=== PATIENT | male | born 1950 | race Caucasian/White ===

== ENCOUNTER → 2016-12-15 | Outpatient (CLI) | payer BC ==
[~2016-12-15] MED LIST: IOPAMIDOL (ISOVUE-300) 100 ML BTL ONE
== END ==
LOC: FIMAGING 11:07
PROVIDERS: ATTEND Internal Medicine
DX: E16.9 Disorder of pancreatic internal secretion, unspecified (principal); N20.0 Calculus of kidney; N18.3 Chronic kidney disease, stage 3 (moderate); Q63.1 Lobulated, fused and horseshoe kidney; N21.0 Calculus in bladder
CPT/HCPCS: Q9967

== ENCOUNTER 2016-12-21 11:54 | Day surgery (SDC) | payer BC ==
[2016-12-21] MEDS ORDERED: LR 1,000 ML IV ONE (12:18)
[2016-12-21] MEDS ORDERED: LIDOCAINE 1% 2 ML INJ ID PRN (12:18)
[2016-12-21] MEDS ORDERED: GLUCAGON HCL 1 MG VIAL ONE (13:04)
[2016-12-21] MEDS ORDERED: IOTHALAMATE MEG (CONRAY) 50 ML VIAL IV ONE (13:04)
--- NOTE | 2016-12-21 13:48 | PDANEPAE ---
ANE Past Medical History - Cardiovascular History Hx Hypertension: Yes Hx Arrhythmias: No Hx Chest Pain: No Hx Coronary Artery / Peripheral Vascular Disease: No Hx CHF / Valvular Disease: No Hx Palpitations: No - Pulmonary History Hx COPD: No Hx Asthma/Reactive Airway Disease: No Hx Recent Upper Respiratory Infection: No Hx Oxygen in Use at Home: No Hx Sleep Apnea: No Sleep Apnea Screening Result - Last Documented: Negative - Neurologic History Hx Cerebrovascular Accident: No Hx Seizures: No Hx Dementia: No - Endocrine History Hx Diabetes: Yes Endocrine History Comment: DM II - Renal History Hx Renal Disorders: Yes Renal History Comment: KIDNEY STONE YRS AGO - Liver History Hx Hepatic Disorders: No - Neurological & Psychiatric Hx Hx Neurological and Psychiatric Disorders: No - Cancer History Hx Cancer: Yes Cancer History Comment: SKIN CA - Congenital Disorder History Hx Congenital Disorders: Yes - GI History Hx Gastrointestinal Disorders: Yes Gastrointestinal History Comment: DIARRHEA, LESS APPETITE - Other Health History Other Health History: NEG - Chronic Pain History Chronic Pain: Yes (BACK PAIN) - Surgical History Prior Surgeries: SKIN CA FOREHEAD. COLONOSCOPIES. ORAL SURGERY ANE Review of Systems Review of Systems: - Exercise capacity METS (RN): 4 METS ANE Patient History - Allergies Allergies/Adverse Reactions: niacin [From Niaspan Extended-Release] Allergy (Intermediate, Verified 01/17/11 15:16) Rash coconut Allergy (Verified 12/21/16 13:44) ketoconazole Allergy (Verified 12/21/16 13:44) Rash - Home Medications Home Medications: Acetaminophen [Tylenol 325mg (*)] 325 mg PO DAILY 01/17/11 [Last Taken 12/21/16] Cholecalciferol Vit D3 [Vitamin D3 (*)] 1,000 units PO DAILY 01/17/11 [Last Taken 01/17/11 01:00] Glimepiride [Amaryl 2 MG (*)] 8 mg PO HS 01/17/11 [Last Taken 12/20/16] Insulin Glulisine [Apidra] 8 - 10 unit SQ HS 01/17/11 [Last Taken 12/19/16] Multivitamins [Multivitamin (*)] 1 each PO DAILY 01/17/11 [Last Taken 01/17/11 01:00] Potassium Cl [Klor-Con] 10 meq PO BID 01/17/11 [Last Taken 12/20/16 21:00] Simvastatin [Zocor] 20 mg PO HS 01/17/11 [Last Taken 12/20/16] metFORMIN HCL [Glucophage 500 mg (*)] 500 mg PO BIDMEAL 01/17/11 [Last Taken 1 Week Ago ~12/14/16] Insulin Glargine,Hum.rec.anlog [Basaglar Kwikpen U-100] 75 - 80 unit SQ DAILY [Last Taken 12/21/16 40UNITS] Losartan Potassium [Cozaar 50 mg (*)] 100 mg PO HS 12/17/16 [Last Taken 12/20/16 ] Acetaminophen [Tylenol 325mg (*)] 650 mg PO HS 12/21/16 [Last Taken 12/20/16] Allopurinol [Allopurinol 100 MG (*)] 100 mg PO HS 12/21/16 [Last Taken 12/20/16] Allopurinol [Allopurinol 100 MG (*)] 200 mg PO DAILY 12/21/16 [Last Taken ] Herbals/Supplements -Info Only 1 ea PO DAILY 12/21/16 [Last Taken Unknown] - NPO status NPO Since - Liquids (Date): 12/21/16 NPO Since - Liquids (Time): 08:30 NPO Since - Solids (Date): 12/20/16 NPO Since - Solids (Time): 22:00 - Smoking Hx Smoking Status: Never smoked - Family Anes Hx Family Hx Anesthesia Complications: NEG ANE Labs/Vital Signs - Vital Signs Blood Pressure: 133/86 Heart Rate: 94 Respiratory Rate: 20 O2 Sat (%): 95 Height: 167.64 cm Weight: 95.254 kg ANE Physical Exam - Airway Mallampati Score: Class 2 - ASA Status ASA Status: III ANE Anesthesia Plan Anesthesia Plan: general endotracheal anesthesia
[2016-12-21] MEDS ORDERED: MIDAZOLAM 2 MG/2 ML VIAL ONE (13:49)
[2016-12-21] MEDS ORDERED: fentaNYL 100 MCG/2 ML INJ ONE (13:50)
[2016-12-21] MEDS ORDERED: PROPOFOL 200 MG/20 ML VIAL ONE (13:50)
[2016-12-21] MEDS ORDERED: INDOMETHACIN 50 MG SUPP PR PRN (13:55)
--- NOTE | 2016-12-21 13:55 | PDGENHP ---
History & Physical Chief Complaint: abnl imaging History of Present Illness: 66 year old male presents for evaluation of a abnormal CT. + mass in pancreatic body and head? LFTs elevated. + weight loss Pertinent Past, Social, Family History: PMHx: DM. SoHx: social etoh. FaMHx: mom-cancer Relevant Physical Exam: HEENT: icteric. CV: RRR + s1s2. Lungs: CTAB. Abd: soft, nt, + bs NO guarding or rebound Cardiorespiratory Assessment: ASA 3
[2016-12-21] MEDS ORDERED: NS 500 ML IV SCH (14:00)
[2016-12-21] MEDS ORDERED: METOCLOPRAMIDE 10 MG/2 ML VIAL ONE (14:03)
[2016-12-21] MEDS ORDERED: ONDANSETRON 4 MG/2 ML VIAL ONE (14:03)
[2016-12-21] MEDS ORDERED: levOFLOXACIN 500 MG/DEXTROSE/100 ML BAG IV ONE ×2 (14:29→14:31)
[2016-12-21] MEDS ORDERED: INDOMETHACIN 50 MG SUPP PR ONE (14:32)
--- NOTE | 2016-12-21 15:15 | GPN ---
[f rep st] PROCEDURE NOTE DATE OF PROCEDURE: 12/21/2016 PROCEDURE: Esophagogastroscopy with biopsy, endoscopic ultrasound with fine-needle aspiration. INDICATION: The patient is a 66-year-old male who presents with complaints of diarrhea, weight loss, as well as abdominal discomfort. He had a recent CT scan which showed a possible mass lesion in his pancreas. The patient presents for further evaluation and possible tissue acquisition. CONSENT: Risks, benefits, alternatives of the procedure were discussed in great detail with the nora ent. Risk of infection, bleeding, perforation, sedation, and pancreatitis were discussed. All quest ions answered. Informed consent was obtained. MEDICATIONS: General anesthesia. Please see Anesthesia record for details. ESTIMATED BLOOD LOSS: Insignificant. ESOPHAGOGASTROSCOPY EXAMINATION: The Olympus upper endoscope was inserted in the mouth and advanced to the esophagus. The proximal, mid and distal esophagus were normal in appearance. The stomach was entered and closely examined, including retroflexed views of angularis, cardia and fu ndus. A large hiatal hernia was noted. The mucosa of the whole antrum body was erythematous in a patchy distribution, and biopsies taken. The duodenal bulb and 2nd portion of the duodenum were entered. Multiple superficial ulcers were see n, consistent with biliary stress ulcers. Biopsies were taken to rule out celiac sprue due to his weight loss and diarrhea. ENDOSCOPIC ULTRASOUND EXAMINATION: The Olympus linear echoendoscope was entered in the mouth and adv anced to the 2nd portion of the duodenum. The esophagus, stomach, and duodenum were visualized endos onographically. In the mid body of the pancreas, a 28.5 x 26.4 mm hypoechoic lesion was seen. Ill-defined margins, a nd it did appear to encase the celiac artery. Multiple peripancreatic nodes were appreciated, these measured approximately 4-8 mm. They were hyper echoic with distinct margins. The mass lesion appeared to extend from the body and went to the neck and head of the pancreas. The common bile duct was seen, was dilated to 11 mm. It was followed and the pancreatic duct was see n merging with it. No obvious obstructing lesion was seen. However, due to his significant elevated alkaline phosphatase and bilirubin, it is suspected that he is getting obstruction from the pancreat ic tumor even though this was not visualized on ultrasound. Doppler was used to rule out intervening vessels. One pass was made with a [employer] 25-gaug e needle into the lesion in the pancreatic body. Cytology was present, and preliminary report is pos itive for adenocarcinoma. IMPRESSION: 1. Pancreatic mass in the body with extension to the head, status post fine needle aspiration with p reliminary report positive for carcinoma. 2. Gastritis, as above. 3. Duodenal stress ulcers. 4. Biopsies taken. RECOMMENDATIONS: 1. Follow up on biopsy and FNA results. 2. Proceed with ERCP. /[id number]/MODL
[2016-12-21] MEDS ORDERED: SUGAMMADEX SODIUM 200 MG/2 ML VIAL IVP ONE (15:42)
[2016-12-21] MEDS ORDERED: LR 500 ML IV PRN (15:50)
[2016-12-21] MEDS ORDERED: fentaNYL 100 MCG/2 ML INJ IVP PRN (15:50)
[2016-12-21] MEDS ORDERED: ONDANSETRON 4 MG/2 ML VIAL IVP PRN (15:50)
[2016-12-21] MEDS ORDERED: NALOXONE HCL 0.4 MG/ML INJ IVP PRN (15:50)
--- NOTE | 2016-12-21 15:51 | POSTANESTH ---
Post Anesthetic Evaluation Cardiovascular Status: Normal, Stable Respiratory Status: Normal, Stable Level of Consciousness/Mental Status: Can Participate in Eval Pain Control: Adequate, Prn Tx Ordered Nausea/Vomiting Control: Adequate, Prn Tx Ordered Complications Possibly Related to Anesthesia: None Noted
[2016-12-21 16:00] VITALS: O2SAT 100
[2016-12-21 16:11] VITALS: PULSE 89
[2016-12-21] MEDS ORDERED: traMADol 50 MG TAB PO ONE (17:15)
[2016-12-21] MEDS ORDERED: traMADol 50 MG TAB ONE (17:22)
[2016-12-21 18:17] VITALS: BP 164/77; RESP 14; TEMP 98.1
--- NOTE | 2016-12-21 19:06 | GPN ---
[f rep st] PROCEDURE NOTE DATE OF PROCEDURE: 12/21/2016 NAME OF PROCEDURE: Endoscopic retrograde cholangiopancreatography with placement of stent, biliary s phincterotomy, extraction of debris. INDICATION: The patient is a 66-year-old male who presents with biliary obstruction. The procedure is for further evaluation. CONSENT: Risks, benefits, and alternatives of the procedure were discussed in great detail with the patient. Risk of infection, bleeding, perforation, sedation, and pancreatitis were discussed. All q uestions answered. Informed consent obtained. MEDICATIONS: General anesthesia. Please see Anesthesia report for details. Levaquin 500 mg IV x1. Indomethacin rectal 100 mg x1. ESTIMATED BLOOD LOSS: Insignificant. ENDOSCOPIC RETROGRADE CHOLANGIOPANCREATOGRAPHY EXAM: The Olympus duodenoscope was inserted in the [facility] and advanced to the second portion of the duodenum. The esophagus was normal in appearance. Usi ng a [employer] 0.035 inch wire, the wire was advanced into the common bile duct after going i nto the pancreatic duct at least 4 times. There did appear to be an obstructing mass which made this procedure technically challenging. A limited cholangiogram was done to confirm position, and a 1 cm sphincterotomy was performed. A ___ cholangiography was performed. The flow of contrast was adequate with adequate visualization of the biliary tree. I interpreted the radiographs in real-time. A balloon sweep was made and the balloon could not be extracted beyond the distal hard stricture. Debris was seen within the . A 10 x 60 covered removable metal stent was placed with excellent flow of bile. IMPRESSION: 1. Malignant stricture, status post biliary sphincterotomy and placement of stent. 2. Extraction of debris. RECOMMENDATIONS: 1. Follow up with Oncology. 2. Clear liquid diet. 3. Continue previous medications. /[id number]/MODL
--- NOTE | 2016-12-21 19:06 | GPN ---
[f rep st] PROCEDURE NOTE DATE OF PROCEDURE: 12/21/2016 NAME OF PROCEDURE: Endoscopic retrograde cholangiopancreatography with placement of stent, biliary s phincterotomy, extraction of debris. INDICATION: The patient is a 66-year-old male who presents with biliary obstruction. The procedure is for further evaluation. CONSENT: Risks, benefits, and alternatives of the procedure were discussed in great detail with the patient. Risk of infection, bleeding, perforation, sedation, and pancreatitis were discussed. All q uestions answered. Informed consent obtained. MEDICATIONS: General anesthesia. Please see Anesthesia report for details. Levaquin 500 mg IV x1. Indomethacin rectal 100 mg x1. ESTIMATED BLOOD LOSS: Insignificant. ENDOSCOPIC RETROGRADE CHOLANGIOPANCREATOGRAPHY EXAM: The Olympus duodenoscope was inserted in the [facility] and advanced to the second portion of the duodenum. The esophagus was normal in appearance. Usi ng a [employer] 0.035 inch wire, the wire was advanced into the common bile duct after going i nto the pancreatic duct at least 4 times. There did appear to be an obstructing mass which made this procedure technically challenging. A limited cholangiogram was done to confirm position, and a 1 cm sphincterotomy was performed. A ___ cholangiography was performed. The flow of contrast was adequate with adequate visualization of the biliary tree. I interpreted the radiographs in real-time. A balloon sweep was made and the balloon could not be extracted beyond the distal hard stricture. Debris was seen within the . A 10 x 60 covered removable metal stent was placed with excellent flow of bile. IMPRESSION: 1. Malignant stricture, status post biliary sphincterotomy and placement of stent. 2. Extraction of debris. RECOMMENDATIONS: 1. Follow up with Oncology. 2. Clear liquid diet. 3. Continue previous medications. /[id number]/MODL
--- NOTE | 2016-12-21 19:06 | GPN ---
[f rep st] PROCEDURE NOTE DATE OF PROCEDURE: 12/21/2016 NAME OF PROCEDURE: Endoscopic retrograde cholangiopancreatography with placement of stent, biliary s phincterotomy, extraction of debris. INDICATION: The patient is a 66-year-old male who presents with biliary obstruction. The procedure is for further evaluation. CONSENT: Risks, benefits, and alternatives of the procedure were discussed in great detail with the patient. Risk of infection, bleeding, perforation, sedation, and pancreatitis were discussed. All q uestions answered. Informed consent obtained. MEDICATIONS: General anesthesia. Please see Anesthesia report for details. Levaquin 500 mg IV x1. Indomethacin rectal 100 mg x1. ESTIMATED BLOOD LOSS: Insignificant. ENDOSCOPIC RETROGRADE CHOLANGIOPANCREATOGRAPHY EXAM: The Olympus duodenoscope was inserted in the [facility] and advanced to the second portion of the duodenum. The esophagus was normal in appearance. Usi ng a [employer] 0.035 inch wire, the wire was advanced into the common bile duct after going i nto the pancreatic duct at least 4 times. There did appear to be an obstructing mass which made this procedure technically challenging. A limited cholangiogram was done to confirm position, and a 1 cm sphincterotomy was performed. A ___ cholangiography was performed. The flow of contrast was adequate with adequate visualization of the biliary tree. I interpreted the radiographs in real-time. A balloon sweep was made and the balloon could not be extracted beyond the distal hard stricture. Debris was seen within the . A 10 x 60 covered removable metal stent was placed with excellent flow of bile. IMPRESSION: 1. Malignant stricture, status post biliary sphincterotomy and placement of stent. 2. Extraction of debris. RECOMMENDATIONS: 1. Follow up with Oncology. 2. Clear liquid diet. 3. Continue previous medications. /[id number]/MODL
== END 2016-12-21 18:10 | disposition home or self-care (01) ==
LOC: FSGY 11:54
PROVIDERS: ATTEND Internal Medicine Gastroenterology
PROC: 0DB98ZX Excision of Duodenum, Via Natural or Artificial Opening Endoscopic, Diagnostic (ICD-10-PCS; principal; 2016-12-21 13:45)
PROC: 0FBG8ZX Excision of Pancreas, Via Natural or Artificial Opening Endoscopic, Diagnostic (ICD-10-PCS; principal; 2016-12-21 13:45)
PROC: 0DB67ZX Excision of Stomach, Via Natural or Artificial Opening, Diagnostic (ICD-10-PCS; principal; 2016-12-21 13:45)
PROC: 0F798DZ Dilation of Common Bile Duct with Intraluminal Device, Via Natural or Artificial Opening Endoscopic (ICD-10-PCS; principal; 2016-12-21 13:45)
DX: K83.1 Obstruction of bile duct (principal); C25.9 Malignant neoplasm of pancreas, unspecified; K44.9 Diaphragmatic hernia without obstruction or gangrene; K26.9 Duodenal ulcer, unspecified as acute or chronic, without hemorrhage or perforation; K29.70 Gastritis, unspecified, without bleeding; I10 Essential (primary) hypertension; E11.9 Type 2 diabetes mellitus without complications
CPT/HCPCS: 43235; 43264; 43274; 76001; C1769; C1874; J1610; J1956; J2250; J2405; J2704; J2765; J3010; Q9961

== ENCOUNTER 2017-01-14 21:19 | Emergency (ER) | payer BC ==
--- NOTE | 2017-01-14 22:24 | EDPHY ---
H & P Stated Complaint: recent port placed in L chest for chemo, blood and poss chemo meds leaking Time Seen by Provider: 01/14/17 21:54 HPI/ROS: Chief Complaint: Leaking Port-A-Cath HPI: 66-year-old male with pancreatic cancer had a Port-A-Cath placed 2 days ago. Patient was started on chemotherapy through the port yesterday. Today at about 6:00 p.m. the patient noted some leaking from the site. He called the on- call cancer nurse instructed to come in for further evaluation. Denies any fevers or chills. No chest pain. No pain or irritation around the site. No nausea or vomiting. ROS: 10 point Review of Systems is negative except as noted in the HPI. PMH: Pancreatic cancer Physical Exam: Gen: Awake, Alert, No Distress HEENT: Nose: no rhinorrhea Eyes: PERRLA, EOMI Mouth: Moist mucosa Neck: Supple, no JVD Chest: , there is an accessed Port-A-Cath in his left chest wall. There is no erythema. There is a small trickle of dried blood at the site. There are no crystals or active leaking noted at this time. The Yañez needle is protruding from the skin approximately 1 cm. Back: no CVA tenderness, no midline tenderness Ext: no edema, non-tender Skin: no rash Neuro: CN II-XII intact, Sensation grossly intact, Strength 5/5 in bilateral upper and [lower extremities - Medical/Surgical History Hx Asthma: No Hx Chronic Respiratory Disease: No Hx Diabetes: Yes Hx Cardiac Disease: Yes Hx Renal Disease: No Hx Cirrhosis: No Hx Alcoholism: No Hx HIV/AIDS: No Hx Splenectomy or Spleen Trauma: No Other PMH: pancreatic ca, dm 2, arthritis, gout, hyperlipidemia, hypertension - Social History Smoking Status: Never smoked Constitutional: Initial Vital Signs Heart Rate 81 01/14/17 21:23 Respiratory Rate 18 01/14/17 21:23 Blood Pressure 111/59 L 01/14/17 21:23 O2 Sat (%) 93 01/14/17 21:23 O2 Delivery Mode Room Air Allergies/Adverse Reactions: niacin [From Niaspan Extended-Release] Allergy (Intermediate, Verified 01/14/17 21:28) Rash coconut Allergy (Verified 01/14/17 21:28) ketoconazole Allergy (Verified 01/14/17 21:28) Rash Home Medications: Medication Instructions Recorded Cholecalciferol Vit D3 [Vitamin D3 1,000 units PO DAILY 01/17/11 (*)] Glimepiride [Amaryl 2 MG (*)] 8 mg PO HS 01/17/11 Insulin Glulisine [Apidra] 8 - 10 unit SQ HS 01/17/11 Multivitamins [Multivitamin (*)] 1 each PO DAILY 01/17/11 Potassium Cl [Klor-Con] 10 meq PO BID 01/17/11 Insulin Glargine,Hum.rec.anlog 75 - 80 unit SQ DAILY 12/17/16 [Basaglar Kwikpen U-100] Losartan Potassium [Cozaar 50 mg 100 mg PO HS 12/17/16 (*)] Acetaminophen [Tylenol 325mg (*)] 650 mg PO HS 12/21/16 Allopurinol [Allopurinol 100 MG 200 mg PO DAILY 12/21/16 (*)] Herbals/Supplements -Info Only 1 ea PO DAILY 12/21/16 traMADol 01/14/17 Medical Decision Making ED Course/Re-evaluation: Patient has been seen by the chemotherapy nurse. The she has not noted any crystals or any evidence of a chemotherapeutic agent week. Her plan is to clean the site and Re access the port with a shorter needle. Will re-dress and start back on his previous right via the pump. Patient will follow up with the Cancer Clinic tomorrow for further evaluation. Departure - Departure Disposition: Home, Routine, Self-Care Clinical Impression: Encounter for care related to Port-a-Cath Condition: Good Additional Instructions: Follow up with your oncologist tomorrow. Return to the emergency department for pain or irritation around the catheter site, fevers, chills, redness, discharge, or any other concerns. Referrals: Zafar Kirby MD [Primary Care Provider] - As per Instructions
[2017-01-14 23:13] VITALS: BP 117/56; PULSE 83; RESP 16; O2SAT 94
== END 2017-01-14 23:13 | disposition home or self-care (01) ==
DX: T82.43XA Leakage of vascular dialysis catheter, initial encounter (principal); E11.9 Type 2 diabetes mellitus without complications; I10 Essential (primary) hypertension; Z79.4 Long term (current) use of insulin; Z85.07 Personal history of malignant neoplasm of pancreas; Y82.8 Other medical devices associated with adverse incidents

== ENCOUNTER 2017-01-15 21:17 | Inpatient (IN) | payer OTHER, BC ==
[2017-01-15] MEDS ORDERED: NS 1,000 ML IV ONE ×2 (21:33→23:02)
--- NOTE | 2017-01-15 21:58 | EDPHY ---
H & P Time Seen by Provider: 01/15/17 21:34 HPI/ROS: CHIEF COMPLAINT: High blood sugar HISTORY OF PRESENT ILLNESS: 66-year-old male with a history of type 2 diabetes and recent diagnosis of pancreatic cancer presents with hyperglycemia. He received his 1st chemotherapy on 01/13/2017 and the chemotherapy was just discontinued today. Over the last couple of days he has not been eating much. He has been tolerating a small amount of oral fluids well without vomiting. No fever or recent illness. This morning his blood sugar was off his home monitor scale. He took his usual dose of Basaglar 60 u this morning and then at the advice of his physician, he took extra Basaglar 75 u SQ at 1630 and Apidra 15u SQ at 1630. Blood sugar at 8pm was 523, so he took Apidra 15u SQ. REVIEW OF SYSTEMS: Constitutional: No fever, no chills Eyes: No visual changes ENT: No sore throat Respiratory: No cough, no shortness of breath Cardiac: No chest pain Gastrointestinal: No nausea, no vomiting, no abdominal pain Genitourinary: no dysuria Musculoskeletal: No leg pain or swelling Skin: No rash Neurological: No headache, no weakness Psychiatric: No depression Past Medical/Surgical History: Diabetes type 2 Pancreatic cancer Social History: Smoking Status: Never smoked Physical Exam: General Appearance: Alert, pleasant, does not appear ill Eyes: Pupils equal and round, no conjunctival pallor or injection ENT, Mouth: Mucous membranes moist Neck: Normal inspection Respiratory: Lungs are clear to auscultation Cardiovascular: Regular rate and rhythm Gastrointestinal: Abdomen is soft, left upper quadrant tenderness Neurological: A&O, nonfocal, normal gait Skin: Warm and dry, no rash Extremities: Nontender, no pedal edema Psychiatric: Mood and affect normal Constitutional: Initial Vital Signs Temperature (C) 36.4 C 01/15/17 21:23 Heart Rate 74 01/15/17 21:23 Respiratory Rate 16 01/15/17 21:23 Blood Pressure 116/53 L 01/15/17 21:23 O2 Sat (%) 94 01/15/17 21:23 O2 Delivery Mode Room Air Allergies/Adverse Reactions: niacin [From Niaspan Extended-Release] Allergy (Intermediate, Verified 01/15/17 21:21) Rash coconut Allergy (Verified 01/15/17 21:21) ketoconazole Allergy (Verified 01/15/17 21:21) Rash Home Medications: Medication Instructions Recorded Allopurinol 01/15/17 Amaryl 01/15/17 Apidra 01/15/17 Basaglar Kwikpen U-100 01/15/17 Losartan Potassium 01/15/17 Potassium Chloride 01/15/17 traMADol 01/15/17 Medical Decision Making ED Course/Re-evaluation: IV normal saline 1 L given for a clinical diagnosis of dehydration related to decreased oral intake. Labs ordered. 11:00 p.m.-laboratory results returned and revealed acute renal failure with a BUN 151 and creatinine 4.7. 2 days ago his BUN was 80 and creatinine 4.2. Fortunately his potassium is normal today. The blood sugar is 385; I will not give further insulin at this point given that he just took extra regular insulin 2 hr ago. A 2nd L of IV normal saline given. The patient and his were informed of the diagnosis. The hospitalist service was consulted for admission. Differential Diagnosis: Differential diagnosis includes though is not limited to diabetic ketoacidosis, severe dehydration, hyperkalemia, infectious etiology. - Data Points Laboratory Results: Laboratory Results 01/15/17 22:15 01/15/17 22:15 01/15/17 01/15/17 22:15 22:15 WBC 12.74 10^3/uL H 10^3/uL (3.80-9.50) RBC 3.28 10^6/uL L 10^6/uL (4.40-6.38) Hgb 12.0 g/dL L g/dL (13.7-17.5) Hct 33.1 % L % (40.0-51.0) MCV 100.9 fL H fL (81.5-99.8) MCH 36.6 pg H pg (27.9-34.1) MCHC 36.3 g/dL g/dL (32.4-36.7) RDW 12.6 % % (11.5-15.2) Plt Count 210 10^3/uL 10^3/uL (150-400) MPV 10.1 fL fL (8.7-11.7) Neut % (Auto) 95.8 % H % (39.3-74.2) Lymph % (Auto) 2.7 % L % (15.0-45.0) [place] % (Auto) 1.0 % L % (4.5-13.0) Eos % (Auto) 0.0 % L % (0.6-7.6) Baso % (Auto) 0.1 % L % (0.3-1.7) Nucleat RBC Rel Count 0.0 % % (0.0-0.2) Absolute Neuts (auto) 12.21 10^3/uL H 10^3/uL (1.70-6.50) Absolute Lymphs (auto) 0.34 10^3/uL L 10^3/uL (1.00-3.00) Absolute Monos (auto) 0.13 10^3/uL L 10^3/uL (0.30-0.80) Absolute Eos (auto) 0.00 10^3/uL L 10^3/uL (0.03-0.40) Absolute Basos (auto) 0.01 10^3/uL L 10^3/uL (0.02-0.10) Absolute Nucleated RBC 0.00 10^3/uL 10^3/uL (0-0.01) Immature Gran % 0.4 % % (0.0-1.1) Immature Gran # 0.05 10^3/uL 10^3/uL (0.00-0.10) Sodium 128 mEq/L L mEq/L (134-144) Potassium 4.5 mEq/L mEq/L (3.5-5.2) Chloride 96 mEq/L L mEq/L (97-110) Carbon Dioxide 15 mEq/l L mEq/l (22-31) Anion Gap 17 mEq/L H mEq/L (8-16) BUN 151 mg/dL H* mg/dL (7-23) Creatinine 4.7 mg/dL H mg/dL (0.7-1.3) Estimated GFR 12 Glucose 385 mg/dL H mg/dL (70-100) Calcium 8.1 mg/dL L mg/dL (8.5-10.4) Medications Given: Discontinued Medications Sodium Chloride (Ns) 1,000 mls @ 0 mls/hr IV EDNOW ONE; Wide Open PRN Reason: Protocol Stop: 01/15/17 21:34 Last Admin: 12/01/17 22:15 Dose: 1,000 mls Departure - Departure Disposition: [facility] Inpatient Acute Clinical Impression: Hyperglycemia due to type 2 diabetes mellitus Qualifiers: Diabetes mellitus halfway insulin use: with halfway use Qualified Code(s): E11.65 - Type 2 diabetes mellitus with hyperglycemia; Z79.4 - senior living (current ) use of insulin; Z79.4 - long term care administrator (current) use of insulin; Z79.4 - senior living (current) use of insulin; Z79.4 - long term care administrator (current) use of insulin Acute renal failure Qualifiers: Acute renal failure type: unspecified Qualified Code(s): N17.9 - Acute kidney failure, unspecified Pancreatic cancer Qualifiers: Pancreatic malignancy location: unspecified Qualified Code(s): C25.9 - Malignant neoplasm of pancreas, unspecified Condition: Good Instructions: Diabetic Hyperglycemia (ED) Referrals: Zafar Kirby MD [Primary Care Provider] - As per Instructions
[2017-01-15 22:26] LABS: % IMMATURE GRANULYOCYTES 0.4 % (0.0-1.1); ABSOLUTE IMMATURE GRANULOCYTES 0.05 10^3/uL (0.00-0.10); ADD DIFF? NO; ADD MORPH? NO; ADD SCAN? NO; ATYPICAL LYMPHOCYTE FLAG 0 (0-99); FRAGMENT RBC FLAG 0 (0-99); HEMATOCRIT 33.1 % (40.0-51.0); LEFT SHIFT FLG 0 (0-99); LIPEMIA HEMOLYSIS FLAG 90 (0-99); MEAN CELL HEMOGLOBIN 36.6 pg (27.9-34.1); MEAN CELL HEMOGLOBIN CONCENTR. 36.3 g/dL (32.4-36.7); MEAN CELL VOLUME 100.9 fL (81.5-99.8); MEAN PLATELET VOLUME 10.1 fL (8.7-11.7); PLATELET CLUMPS FLAG 0 (0-99); PLATELET COUNT 210 10^3/uL (150-400); RED BLOOD CELL COUNT 3.28 10^6/uL (4.40-6.38); RED CELL DISTRIBUTION WIDTH 12.6 % (11.5-15.2)
[2017-01-15 22:49] LABS: ANION GAP 17 mEq/L (8-16); CALCIUM 8.1 mg/dL (8.5-10.4); CARBON DIOXIDE 15 mEq/l (22-31); CHLORIDE 96 mEq/L (97-110); CREATININE 4.7 mg/dL (0.7-1.3); GLOMERULAR FILTRATION RATE 12; GLUCOSE 385 mg/dL (70-100); POTASSIUM 4.5 mEq/L (3.5-5.2); SODIUM 128 mEq/L (134-144)
[2017-01-16] MEDS ORDERED: diphenhydrAMINE 25 MG CAP PO PRN (01:09)
[2017-01-16] MEDS ORDERED: ACETAMINOPHEN 325 MG TAB PO PRN (01:09)
[2017-01-16] MEDS ORDERED: LORazepam 0.5 MG TAB PO PRN ×2 (01:09→11:06)
[2017-01-16] MEDS ORDERED: D50W 25 GM/50 ML SYR IVP PRN (01:15)
[2017-01-16] MEDS ORDERED: LR 1,000 ML IV SCH (01:30)
[2017-01-16] MEDS: ONDANSETRON 4 MG/2 ML VIAL IVP PRN (01:32)
[2017-01-16] MEDS: HYDROCODONE/APAP 5/325 TAB PO PRN ×2 (02:06→23:39)
[2017-01-16 02:17] LABS: COLOR YELLOW; LEUKOCYTE ESTERASE,URINE NEGATIVE (NEGATIVE); NITRITE,URINE NEGATIVE (NEGATIVE)
[2017-01-16 02:19] LABS: AMORPHOUS PRESENT /hpf (NONE-1+); BACTERIA TRACE /hpf (NONE SEEN); MUCUS TRACE /lpf (NONE-1+)
[2017-01-16 04:05] LABS: % IMMATURE GRANULYOCYTES 0.6 % (0.0-1.1); ABSOLUTE IMMATURE GRANULOCYTES 0.06 10^3/uL (0.00-0.10); ADD DIFF? NO; ADD MORPH? NO; ADD SCAN? NO; ATYPICAL LYMPHOCYTE FLAG 0 (0-99); FRAGMENT RBC FLAG 0 (0-99); HEMATOCRIT 32.2 % (40.0-51.0); HEMOGLOBIN 11.5 g/dL (13.7-17.5); LEFT SHIFT FLG 0 (0-99); LIPEMIA HEMOLYSIS FLAG 90 (0-99); MEAN CELL HEMOGLOBIN 36.2 pg (27.9-34.1); MEAN CELL HEMOGLOBIN CONCENTR. 35.7 g/dL (32.4-36.7); MEAN CELL VOLUME 101.3 fL (81.5-99.8); MEAN PLATELET VOLUME 10.1 fL (8.7-11.7); PLATELET CLUMPS FLAG 0 (0-99); PLATELET COUNT 179 10^3/uL (150-400); RED BLOOD CELL COUNT 3.18 10^6/uL (4.40-6.38); RED CELL DISTRIBUTION WIDTH 12.5 % (11.5-15.2)
--- NOTE | 2017-01-16 04:08 | GHP ---
[f rep st] HISTORY AND PHYSICAL DATE OF ADMISSION: 01/15/2017 DATE OF SERVICE: 01/16/2017 SOURCE: Patient provides history, appears very reliable. Mother at bedside supplements family history. CHIEF COMPLAINT: Elevated blood sugars. HISTORY OF PRESENT ILLNESS: This is a very pleasant, 66-year-old gentleman with past medical history significant for diabetes type 2, pancreatic cancer, and remote history of skin cancer who presents to the emergency department today with concerns for elevated blood sugars. Patient reports he was due to have a PET scan earlier in the day time. However, Accu-Chek revealed the patient's blood sugar was 385, and they were unable to complete the scan. Patient did take his usual 60 units of glargine insulin in the morning. After he was dismissed from outpatient PET scan, he did call his primary care physician who recommended that patient give himself 75 units of glargine, as well as 15 units of Apidra. Patient waited approximately 4 hours, and took an additional dose of Apidra as directed. His blood sugars remained elevated above 300, and patient presented for evaluation. Patient reports that he has had chemotherapy since the , and completed his treatment for this course yesterday. Patient, however, has noted a significant decline in oral intake of foods and liquids over the past month or month and a half. Appears by review of patient's records that he has had progressively worsening renal function. Patient had been taking losartan for renal protection. When he had followup with PCP on the 12 of January, he was advised to discontinue this. In the last several days since initiating chemotherapy, patient's appetite has worsened. He also reports he has been unable to keep anything down due to decreased appetite, but also to subsequent emesis. He does not have any active vomiting or diarrhea. Patient denies any fevers. He currently is complaining of feeling a little cold, but only has a sheet and a single blanket. He denies any shaking chills. No cough at this time. Patient does report persistent shortness of breath while sitting up which has been ongoing. No other rashes or sores reported. No dysuria, hematuria. REVIEW OF SYSTEMS: GENERAL: Negative for fevers. Feeling cold currently as per HPI. SKIN: No rashes, sores. ENT: Patient reporting some nasal congestion and some sore throat, as well as some dysphagia related to dry mouth , cotton mouth feeling. He denies any choking sensation or odynophagia. EYES: Patient reports occasionally blurry vision, but no ocular pain. CV: Patient denies any chest pain. Centrally, he is reporting bilateral lateral rib pain with movement. RESPIRATORY: Patient reporting some shortness of breath with sitting up. No cough. No orthopnea. GI: Positive for nausea, a few episodes of vomiting, rare diarrhea, hiccups. Patient denies any melena, hematochezia. Has had soft stools. : No dysuria, hematuria. MUSCULOSKELETAL: Patient reporting chronic osteoarthritis in his shoulders bilaterally, rib soreness bilaterally. NEURO: Patient denies any headache. No numbness, tingling. No focal deficits. PSYCHIATRIC: Patient denies anxiety, depression. Some occasional decreased mood, but patient reports that he "does all right." Remainder ROS negative except as noted above. ALLERGIES: Niaspan topical, coconut, ketoconazole. Patient develops rash. HOME MEDICATIONS: Tramadol p.r.n., potassium chloride, losartan which was discontinued on the 12 of January, Basaglar 60 units in the morning. Apidra 15 units with additional sliding scale in the evenings. Adjustments made as per HPI. Amaryl dose unknown. Allopurinol dose unknown. PAST MEDICAL HISTORY: Significant for pancreatic cancer, diabetes type 2, benign essential hypertension, skin cancer. PAST SURGICAL HISTORY: Significant for port placement on the left and history of skin cancer, status post resection on the scalp. FAMILY HISTORY: Mother with history of breast cancer, father with history of colon cancer, some cousins with diabetes. SOCIAL HISTORY: Patient currently living with his mother. He does not smoke, drink, or use drugs or marijuana. CODE STATUS: Full. PHYSICAL EXAMINATION: VITAL SIGNS: Upon arrival to the ER, blood pressure 116/ 53, heart rate 74, respiratory rate 16, O2 sat 94% on room air with temperature 36.4. Current vitals: Blood pressure 125/63, heart rate 72, respiratory rate 16, O2 sat 98% on room air with a temperature 36.0. GENERAL: No acute distress. Very pleasant, chronically ill-appearing gentleman is lying quietly in bed. Mother at bedside. HEAD: Normocephalic, atraumatic. EYES: Extraocular muscles are intact. Pupils equal, round, decreased reactivity to light bilaterally, but symmetric. No scleral icterus or conjunctival injection. ENT: Mucous membranes appear dry. No oropharyngeal erythema or exudates. NECK: Supple. Trachea midline. CV: Regular rate and rhythm. Slightly distant heart sounds. No murmurs, rubs, or gallops appreciated. RESPIRATORY: Lungs are clear to auscultation bilaterally. No wheezes, rales, or rhonchi. Unlabored breathing. ABDOMEN: Obese, soft, nontender to palpation. No rebound, guarding, or masses appreciated. : No Bruce in place. No suprapubic tenderness to palpation. Patient is complaining of some fullness, need to void. SKIN: Patient without any evidence of rashes or sores. Pallor is present. MUSCULOSKELETAL: Patient strength with generalized weakness. He is able to sit up independently with use of the bed rail, but this takes a little bit of effort. He is able to move all extremities. NEURO: Cranial nerves 2-12 intact, symmetric bilaterally. Patient is awake, alert, and oriented x4. EXTREMITIES: Patient with 1+ pedal pulses. Patient also with 2 to 3+ pitting edema, bilateral lower extremities, and symmetric. No calf pain. PSYCHIATRIC: Patient thought process, content, and questions are all appropriate. He is awake, alert, and oriented x4. LABORATORY STUDIES: WBC 12.74, H and H 12.0 and 33.1, MCV of 100.9, neutrophil percent 95.8%, no bands. Sodium is 128, potassium is 4.5, chloride is 96, CO2 is 15, anion gap 17, BUN 151, creatinine 4.7, GFR of 12, glucose 385. Point of care glucose 333. Calcium 8.1. Patient's recent white count was 17.77, H and H 12.9 and 36.7 on the 13 of January. His creatinine on 01/13/2017 was 4.2, on December 30 was 2.1, and on 12/16/2016 was 1.8. ASSESSMENT AND PLAN: Pleasant, 66-year-old gentleman with history of pancreatic cancer and diabetes type 2 who now presents with complaints of hyperglycemia and worsening renal function. 1. Acute renal failure, likely multifactorial, including prerenal compromise in setting of significantly decreased oral hydration and intake, particularly in the last few days. Patient is status post 2 L of IV fluid in the emergency department. We will continue with IV fluid hydration. We will encourage oral intake as tolerated. May also be component of acute tubular necrosis with continued use of angiotensin receptor lizz in setting of acute renal insufficiency. We will plan to monitor renal panel in the morning for any improvement. Also, we will obtain urine studies, once patient is able to void. 2. Hyperglycemia, likely acutely exacerbated in setting of dehydration. Patient will continue with aggressive IV fluid as noted above. We will continue patient's long-acting glargine at 60 units in the morning and a high dose insulin sliding scale at this time. Patient may require additional dosing of long-acting insulin, as he has had very little movement in his blood sugar since more than doubling his daily dose of long acting. 3. Hyponatremia, likely secondary to hypovolemia, particularly in setting of acute renal failure. We will check osmol urine and serum, and repeat a BMP in the morning. There is partial correction with patient's level of sodium is 135. Continue with IV fluids and correction of hyperglycemia as noted above. 4. Dehydration. IV fluids as noted above. 5. Pancreatic cancer. Call to Oncology service as per day hospitalist. 6. Leukocytosis. Patient currently afebrile. We will monitor closely. Currently undergoing chemotherapy treatment. 7. Anemia, mildly decreased, close to baseline. We will continue to monitor. Again, status post chemotherapy. Patient is not familiar with his regimen. 8. Fluid, electrolyte, nutrition. IV fluids as noted above. Electrolyte replacement, if needed. Diabetic diet as tolerated, and we will try to encourage oral hydration. 9. Prophylaxis. Heparin q.12 hours pending repeat CBC. 10. Code status full. DISPOSITION: Patient admitted to observation at this time pending repeat labs and monitoring for any improvement in blood sugar control and renal function. /[id number]/MODL MTDD
[2017-01-16 04:22] LABS: ALANINE AMINOTRANSFERASE 57 IU/L (21-72); ALBUMIN 2.5 g/dL (3.5-5.0); ALKALINE PHOSPHATASE 149 IU/L (38-126); ANION GAP 17 mEq/L (8-16); ASPARTATE AMINOTRANSFERASE 31 IU/L (17-59); BILIRUBIN,TOTAL 1.1 mg/dL (0.1-1.4); CALCIUM 7.8 mg/dL (8.5-10.4); CARBON DIOXIDE 17 mEq/l (22-31); CHLORIDE 103 mEq/L (97-110); CREATININE 3.8 mg/dL (0.7-1.3); GLOMERULAR FILTRATION RATE 16; GLUCOSE 317 mg/dL (70-100); MAGNESIUM 2.5 mg/dL (1.6-2.3); POTASSIUM 4.5 mEq/L (3.5-5.2); SODIUM 137 mEq/L (134-144); TOTAL PROTEIN 4.7 g/dL (6.3-8.2)
[2017-01-16] MEDS ORDERED: traMADol 50 MG TAB PO PRN ×2 (04:27→11:06)
[2017-01-16] MEDS ORDERED: METOCLOPRAMIDE 10 MG/2 ML VIAL IVP PRN (06:19)
--- NOTE | 2017-01-16 06:23 | CPEKG ---
Heart Rate: 74 RR Interval: 811 P-R Interval: 132 QRSD Interval: 106 QT Interval: 392 QTC Interval: 435 P [place]: 49 QRS [place]: -32 T Wave [place]: 56 EKG Severity - ABNORMAL ECG - EKG Impression: SINUS RHYTHM EKG Impression: MULTIPLE ATRIAL PREMATURE COMPLEXES EKG Impression: BORDERLINE IVCD WITH LAD EKG Impression: BORDERLINE R WAVE PROGRESSION, ANTERIOR LEADS Electronically Signed By: Harish Izaguirre 16-Jan-2017 13:25:14
[2017-01-16] MEDS ORDERED: INSULIN GLARGINE 100 UNITS/ML SYRINGE SC SCH (09:00)
[2017-01-16] MEDS: INSULIN LISPRO 100 UNIT/ML SC SCH ×4 (10:53→20:49)
[2017-01-16] MEDS: HEPARIN 5,000 UNIT/0.5 ML SYR SC SCH ×2 (11:04→21:03)
[2017-01-16] MEDS ORDERED: HYDROmorphONE/DILAUDID 2 MG TAB PO PRN (11:06)
--- NOTE | 2017-01-16 16:26 | HOSPPROG ---
Hospitalist Progress Note Assessment/Plan: * ARF - suspect hypovolemia + ARB -continue IVF * Pancreatic cancer -PET scan when glucose controlled * DM II, uncontrolled -Lantus + SSI -hopefully will get better with hydration * Anemia -stable Subjective: no complaints. Objective: Vital Signs Temp Pulse Resp BP Pulse Ox 36.2 C 75 17 122/61 H 95 01/16/17 14:57 01/16/17 14:57 01/16/17 14:57 01/16/17 14:57 01/16/17 14:57 01/15/17 01/16/17 01/17/17 05:59 05:59 05:59 Intake Total 118 Output Total 550 Balance -432 EKG viewed, my personal interpretation is - nsr, no st changes Renal US - no obstruction Laboratory Tests 01/16/17 01/16/17 03:50 03:50 WBC 10.82 H Hct 32.2 L Plt Count 179 BUN 139 H* Creatinine 3.8 H - Physical Exam Constitutional: no apparent distress, appears nourished, not in pain Cardiovascular: regular rate and rhythym, no murmur, rub, or gallop Respiratory: no respiratory distress, no rales or rhonchi, clear to auscultation Gastrointestinal: normoactive bowel sounds, soft, non-tender abdomen, no palpable masses Skin: no rashes or abrasions, no fluctuance, no induration Neurologic: AAOx3, sensation intact bilaterally Psychiatric: interacting appropriately, not anxious, not encephalopathic, thought process linear ICD10 Worksheet Patient Problems: Problems Problem Status Onset Acute renal failure Acute Hyperglycemia due to type 2 diabetes mellitus Acute Pancreatic cancer Acute
--- NOTE | 2017-01-16 16:57 | PDMN ---
Medical Necessity Medical necessity: Pt meets INPT criteria per MD as of 01/16/17 and MCG M-326 Renal Failure, Acute (est. LOS >2 MN for ongoing eval/mgmt of acute renal failure - suspect hypovolemia + ARB, initial creat 4.7, uncontrolled DM; hx pancreatic cancer per MD progress note).
[2017-01-16] MEDS: NS 1,000 ML IV SCH (18:36)
[2017-01-16] MEDS: GLIMEPIRIDE 2 MG TAB PO SCH (18:41)
[2017-01-17] MEDS: NS 1,000 ML IV SCH ×2 (03:40→12:26)
[2017-01-17 03:59] LABS: % IMMATURE GRANULYOCYTES 0.7 % (0.0-1.1); ABSOLUTE IMMATURE GRANULOCYTES 0.06 10^3/uL (0.00-0.10); ADD DIFF? NO; ADD MORPH? NO; ADD SCAN? NO; ATYPICAL LYMPHOCYTE FLAG 0 (0-99); FRAGMENT RBC FLAG 0 (0-99); HEMATOCRIT 31.6 % (40.0-51.0); HEMOGLOBIN 10.8 g/dL (13.7-17.5); LEFT SHIFT FLG 0 (0-99); LIPEMIA HEMOLYSIS FLAG 90 (0-99); MEAN CELL HEMOGLOBIN 35.5 pg (27.9-34.1); MEAN CELL HEMOGLOBIN CONCENTR. 34.2 g/dL (32.4-36.7); MEAN CELL VOLUME 103.9 fL (81.5-99.8); PLATELET CLUMPS FLAG 10 (0-99); PLATELET COUNT 151 10^3/uL (150-400); RED BLOOD CELL COUNT 3.04 10^6/uL (4.40-6.38); RED CELL DISTRIBUTION WIDTH 12.9 % (11.5-15.2)
[2017-01-17 04:11] LABS: ANION GAP 12 mEq/L (8-16); CARBON DIOXIDE 20 mEq/l (22-31); CHLORIDE 113 mEq/L (97-110); CREATININE 2.7 mg/dL (0.7-1.3); GLOMERULAR FILTRATION RATE 24; GLUCOSE 71 mg/dL (70-100); MAGNESIUM 2.3 mg/dL (1.6-2.3); SODIUM 145 mEq/L (134-144)
[2017-01-17] MEDS ORDERED: [UNRECOGNIZED DRUG - OTHER] SQ SCH (09:00)
[2017-01-17] MEDS ORDERED: INSULIN GLARGINE HUM REC ANLOG 60 UNIT SQ SCH (09:00)
[2017-01-17] MEDS: HEPARIN 5,000 UNIT/0.5 ML SYR SC SCH ×2 (09:11→20:20)
[2017-01-17] MEDS: HYDROCODONE/APAP 5/325 TAB PO PRN ×3 (09:11→22:04)
[2017-01-17] MEDS: INSULIN GLARGINE 100 UNITS/ML SYRINGE SC SCH (09:11)
[2017-01-17] MEDS: INSULIN LISPRO 100 UNIT/ML SC SCH ×4 (10:20→22:38)
[2017-01-17] MEDS: PANTOPRAZOLE SODIUM 40 MG TAB PO SCH (12:28)
--- NOTE | 2017-01-17 13:24 | ASMTCMCOM ---
CM Note CM Note Notes: Met with patient and his mom. He is admitted through the ED with uncontrolled blood sugars and ARF. He currently lives with his mom and has no services. No current needs identified CM available should needs arise. Anticipate home independently when medically stable. Date Signed: 01/17/2017 01:24 PM Electronically Signed By:Lindsay Meredith RN
--- NOTE | 2017-01-17 15:39 | GCON ---
[f rep st] CONSULTATION MEDICAL ONCOLOGY FOLLOWUP CONSULTATION REFERRING PHYSICIAN: Radha Calix MD REASON FOR CONSULTATION: Ongoing management of pancreatic cancer. RECOMMENDATIONS: 1. Agree with treatment of his acute renal failure with fluids as you are doing. 2. Agree with treatment of his hyperglycemia. 3. Provided that the patient can be discharged tomorrow, he will need to present to the [facility] at 2:00 p.m. for his scheduled PET CT scan. Timing is critical for this because of the short half- life of the isotope. 4. Patient will follow up with Dr. George Rust, for surgical consultation on January 19, as planned if he is able to be discharged. ASSESSMENT: This 66-year-old white male was diagnosed with locally advanced adenocarcinoma of the pa ncreas on the December 23, 2016. He has received his 1st cycle of FOLFIRINOX neoadjuvant chemotherapy on January 13, 2017. His CA19-9 at that time was 2270. He is currently being evaluated to see if he can potentially be resectable. He has a PET CT scan ordered for further evaluation on January 18, 2017. The patient was admitted to the hospital Sunday, January 15, 2017, when he was found to have an eleva darien blood sugar and could not have his PET CT scan and then subsequently was found to be in renal steven lure with a creatinine of 4.7. He is currently being treated with hydration and his creatinine this morning has come down to 2.7. His baseline is between 1.5 and 1.8. His blood sugars also have come under good control and is down to 91. The patient is receiving neoadjuvant chemotherapy in an attempt to make him resectable. It is not cl ear yet whether that will be possible or not. Hopefully, he will be able to be discharged tomorrow t o continue his workup. HISTORY OF PRESENT ILLNESS: Please see assessment. PAST MEDICAL HISTORY: Remarkable for his recently diagnosed adenocarcinoma of the pancreas. He pres ented with a 30-pound weight loss. He also had some diarrhea. He then began to become jaundiced and had a CT of the abdomen which showed a suspicious mass in the body of the pancreas, 6.5 x 2.4 cm. T here was encasement of the celiac artery. He had a stent placed. His past medical history is also r emarkable for type 2 diabetes for the last approximately 10 years. He has osteoarthritis, history of gout, previous nephrolithiasis, hypertension, and elevated cholesterol. PAST SURGICAL HISTORY: Remarkable for Mohs surgery for basal cell carcinoma in 2013. He has also garcia d his wisdom teeth removed. FAMILY HISTORY: Remarkable for his father who from colon cancer. His mother has a history of b reast cancer, but currently does not have recurrent disease. 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 He uses alcoh ol only rarely. REVIEW OF SYSTEMS: Remarkable for fatigue. He currently has no nausea or vomiting. He reports no s hortness of breath or cough. He has some mild abdominal discomfort, which has not changed. He does have lower extremity edema, also. PHYSICAL EXAMINATION: GENERAL: Reveals a well developed, alert gentleman in no acute distress today . He is accompanied by his who is at bedside. HEENT: Shows no palpable adenopathy in his neck . His bilirubin on admission was 1.1. His most recent creatinine was 2.7. And, his glucose, as of thi s morning, was 91. Thank you very much. We will follow along with you during this hospitalization. /[id number]/MODL
--- NOTE | 2017-01-17 16:56 | HOSPPROG ---
Hospitalist Progress Note Assessment/Plan: * ARF on CKD - suspect hypovolemia + ARB -continue IVF -baseline creatinine 1.6-1.8 * Pancreatic cancer, s/p stent, on chemo -PET scan tomorrow 2:00pm -appointment with Malcom Rust Wednesday to evaluate for possible resection * DM II, uncontrolled -Lantus + SSI * Anemia -stable * Cdiff colitis -PO Vanco * Possible SBO -check CT abd Subjective: Taking very little PO Objective: Vital Signs Temp Pulse Resp BP Pulse Ox 35.8 C L 78 16 120/66 95 01/17/17 15:09 01/17/17 15:09 01/17/17 15:09 01/17/17 15:09 01/17/17 15:09 Microbiology 01/17/17 13:25 Gastrointestinal Tract Panel (PCR) - Final Stool Clostridium Difficile Detected Laboratory Results 01/17/17 03:45 01/17/17 03:45 01/16/17 01/17/17 01/18/17 05:59 05:59 05:59 Intake Total 968 Output Total 1950 650 Balance -982 -650 d/w Dr. gurrola - oncology to consult KUB viewed, my personal interpretation is - possible SBO - Physical Exam Constitutional: no apparent distress, appears nourished, not in pain Cardiovascular: regular rate and rhythym, no murmur, rub, or gallop Respiratory: no respiratory distress, no rales or rhonchi, clear to auscultation Gastrointestinal: normoactive bowel sounds, soft, non-tender abdomen, no palpable masses Skin: no rashes or abrasions, no fluctuance, no induration Neurologic: AAOx3, sensation intact bilaterally Psychiatric: interacting appropriately, not anxious, not encephalopathic, thought process linear ICD10 Worksheet Patient Problems: Problems Problem Status Onset Acute renal failure Acute Hyperglycemia due to type 2 diabetes mellitus Acute Pancreatic cancer Acute
[2017-01-17] MEDS: GLIMEPIRIDE 2 MG TAB PO SCH (18:23)
[2017-01-17] MEDS: VANCOMYCIN 125 MG/2.5 ML UDL PO SCH (20:19)
[2017-01-18] MEDS: NS 1,000 ML IV SCH (00:37)
[2017-01-18] MEDS: HYDROCODONE/APAP 5/325 TAB PO PRN ×3 (05:06→21:31)
[2017-01-18] MEDS: VANCOMYCIN 125 MG/2.5 ML UDL PO SCH (05:07)
[2017-01-18 05:24] LABS: % IMMATURE GRANULYOCYTES 1.2 % (0.0-1.1); ABSOLUTE IMMATURE GRANULOCYTES 0.08 10^3/uL (0.00-0.10); ADD DIFF? NO; ADD MORPH? NO; ADD SCAN? NO; ATYPICAL LYMPHOCYTE FLAG 0 (0-99); FRAGMENT RBC FLAG 0 (0-99); HEMATOCRIT 36.1 % (40.0-51.0); LEFT SHIFT FLG 10 (0-99); LIPEMIA HEMOLYSIS FLAG 80 (0-99); MEAN CELL HEMOGLOBIN 34.8 pg (27.9-34.1); MEAN CELL HEMOGLOBIN CONCENTR. 33.2 g/dL (32.4-36.7); MEAN CELL VOLUME 104.6 fL (81.5-99.8); MEAN PLATELET VOLUME 10.2 fL (8.7-11.7); PLATELET CLUMPS FLAG 0 (0-99); PLATELET COUNT 114 10^3/uL (150-400); RED BLOOD CELL COUNT 3.45 10^6/uL (4.40-6.38); RED CELL DISTRIBUTION WIDTH 13.2 % (11.5-15.2)
[2017-01-18 05:36] LABS: ANION GAP 12 mEq/L (8-16); CALCIUM 7.5 mg/dL (8.5-10.4); CARBON DIOXIDE 19 mEq/l (22-31); CHLORIDE 118 mEq/L (97-110); GLOMERULAR FILTRATION RATE 33; GLUCOSE 48 mg/dL (70-100); SODIUM 149 mEq/L (134-144)
[2017-01-18] MEDS ORDERED: CIPROFLOXACIN 400 MG/DEXTROSE 200 ML IV ONE (08:37)
[2017-01-18] MEDS: INSULIN LISPRO 100 UNIT/ML SC SCH ×4 (10:50→22:54)
[2017-01-18] MEDS: 1/2 NS 1,000 ML IV SCH ×2 (10:50→23:30)
[2017-01-18] MEDS: CIPROFLOXACIN 500 MG TAB PO SCH ×2 (10:50→20:31)
[2017-01-18] MEDS: PANTOPRAZOLE SODIUM 40 MG TAB PO SCH (10:50)
[2017-01-18] MEDS: HEPARIN 5,000 UNIT/0.5 ML SYR SC SCH ×2 (10:51→20:32)
[2017-01-18] MEDS: INSULIN GLARGINE 100 UNITS/ML SYRINGE SC SCH (10:51)
--- NOTE | 2017-01-18 16:13 | SOAPPROG ---
SOAP Progress Note Assessment/Plan: Assessment: 1.) Pancreatic Carcinoma, S/P first cycle of FOLFIRINOX, now at week # 2, with elevated Cr, pre-renal #s and vol. depletion, diminished appetite and diminished food intake. Feeling effects of first cycle of Tx. Had PET/CT scan earlier today. If recovered, has appt. with surgery to consider future surgical management. 2.) Hyperglycemia/DM 3.) Tx related myelosuppression. 4.) C. Diff colitis. Plan: 1.) IVF support. 2.) Insulin management 3.) Follow glucose/ labs. 4.) Continue Tx for C. diff with po vanco. 5.) Discharge when stable. Outpt. management following discharge. D/W patient at the bedside. 01/18/17 16:15 Subjective: Poor appetite. No diarrhea today. No emesis. No pain or resp. distress reported. Objective: VSS, Afebrile, HEENT- anicteric, no oral lesions Neck- supple Chest- clear CVS- RSR, no extra HS, Mediport L chest- accessed and intact/NT ABD- soft, NT , BS+ EXT- no edema, skin intact. Labs as noted here: Cr down to 2.0 Vital Signs Temp Pulse Resp BP Pulse Ox 36.4 C 86 16 128/71 H 96 01/18/17 07:33 01/18/17 07:33 01/18/17 07:33 01/18/17 07:33 01/18/17 07:33 Microbiology 01/17/17 13:25 Gastrointestinal Tract Panel (PCR) - Final Stool Clostridium Difficile Detected Laboratory Results 01/18/17 05:01 01/18/17 05:01 01/17/17 01/18/17 01/19/17 05:59 05:59 05:59 Intake Total 968 1963 Output Total 1950 1000 Balance -982 963 ICD10 Worksheet Patient Problems: Problems Problem Status Onset Acute renal failure Acute Hyperglycemia due to type 2 diabetes mellitus Acute Pancreatic cancer Acute
--- NOTE | 2017-01-18 16:58 | HOSPPROG ---
Hospitalist Progress Note Assessment/Plan: * ARF on CKD - suspect hypovolemia + ARB -continue IVF -baseline creatinine 1.6-1.8 * Pancreatic cancer, s/p stent, on chemo -PET scan today 2:00pm -outpatient surg onc consult pending - possible resection candidate * DM II, uncontrolled -Lantus + SSI * Anemia -stable * Acute diverticulitis -Cipro/Flagyl * Cdiff colitis -Flagyl * Hypernatremia -change IVF 1/2 NS -encourage PO H2O Subjective: Still minimal PO intake, has had RUQ pain - thought it was his ribs hurting Objective: Vital Signs Temp Pulse Resp BP Pulse Ox 36.1 C 74 18 138/95 H 96 01/18/17 16:50 01/18/17 16:50 01/18/17 16:50 01/18/17 16:50 01/18/17 16:50 Microbiology 01/17/17 13:25 Gastrointestinal Tract Panel (PCR) - Final Stool Clostridium Difficile Detected Laboratory Results 01/18/17 05:01 01/18/17 05:01 01/17/17 01/18/17 01/19/17 05:59 05:59 05:59 Intake Total 968 1963 Output Total 1950 1000 Balance -982 963 - Physical Exam Constitutional: no apparent distress, appears nourished, not in pain Cardiovascular: regular rate and rhythym, no murmur, rub, or gallop Respiratory: no respiratory distress, no rales or rhonchi, clear to auscultation Gastrointestinal: tenderness (RUQ), distension, No ascites, No guarding, No rebound Skin: no rashes or abrasions, no fluctuance, no induration Neurologic: AAOx3, sensation intact bilaterally Psychiatric: interacting appropriately, not anxious, not encephalopathic, thought process linear ICD10 Worksheet Patient Problems: Problems Problem Status Onset Acute renal failure Acute Hyperglycemia due to type 2 diabetes mellitus Acute Pancreatic cancer Acute
[2017-01-18] MEDS: metroNIDAZOLE 500 MG TAB PO SCH ×2 (17:07→21:31)
[2017-01-19] MEDS: HYDROCODONE/APAP 5/325 TAB PO PRN ×4 (04:24→22:06)
[2017-01-19 04:47] LABS: % IMMATURE GRANULYOCYTES 1.4 % (0.0-1.1); ABSOLUTE IMMATURE GRANULOCYTES 0.09 10^3/uL (0.00-0.10); ADD DIFF? NO; ADD MORPH? NO; ADD SCAN? NO; ATYPICAL LYMPHOCYTE FLAG 0 (0-99); FRAGMENT RBC FLAG 0 (0-99); HEMATOCRIT 33.3 % (40.0-51.0); HEMOGLOBIN 11.5 g/dL (13.7-17.5); LEFT SHIFT FLG 10 (0-99); LIPEMIA HEMOLYSIS FLAG 90 (0-99); MEAN CELL HEMOGLOBIN 35.9 pg (27.9-34.1); MEAN CELL HEMOGLOBIN CONCENTR. 34.5 g/dL (32.4-36.7); MEAN CELL VOLUME 104.1 fL (81.5-99.8); MEAN PLATELET VOLUME 10.2 fL (8.7-11.7); PLATELET CLUMPS FLAG 0 (0-99); PLATELET COUNT 108 10^3/uL (150-400); RED CELL DISTRIBUTION WIDTH 13.2 % (11.5-15.2)
[2017-01-19] MEDS: metroNIDAZOLE 500 MG TAB PO SCH ×3 (05:02→22:01)
[2017-01-19 05:05] LABS: ANION GAP 10 mEq/L (8-16); CALCIUM 7.5 mg/dL (8.5-10.4); CARBON DIOXIDE 20 mEq/l (22-31); CHLORIDE 112 mEq/L (97-110); CREATININE 1.7 mg/dL (0.7-1.3); GLOMERULAR FILTRATION RATE 40; GLUCOSE 49 mg/dL (70-100); POTASSIUM 3.8 mEq/L (3.5-5.2); SODIUM 142 mEq/L (134-144)
[2017-01-19] MEDS: INSULIN LISPRO 100 UNIT/ML SC SCH ×4 (08:20→21:17)
[2017-01-19] MEDS: INSULIN GLARGINE 100 UNITS/ML SYRINGE SC SCH (09:20)
[2017-01-19] MEDS: PANTOPRAZOLE SODIUM 40 MG TAB PO SCH (09:21)
[2017-01-19] MEDS: HEPARIN 5,000 UNIT/0.5 ML SYR SC SCH ×2 (09:21→21:08)
[2017-01-19] MEDS: CIPROFLOXACIN 500 MG TAB PO SCH ×2 (09:22→21:06)
[2017-01-19] MEDS: 1/2 NS 1,000 ML IV SCH (09:23)
--- NOTE | 2017-01-19 11:51 | SOAPPROG ---
SOAP Progress Note Assessment/Plan: Assessment: 1.) Pancreatic Carcinoma, S/P first cycle of FOLFIRINOX, now at week # 2, with elevated Cr, pre-renal #s and vol. depletion, diminished appetite and diminished food intake. Feeling effects of first cycle of Tx. Had PET/CT scan yesterday- await result to D/W patient. If recovered, has appt. with surgery to consider future surgical management. 2.) Hyperglycemia/DM 3.) Tx related myelosuppression. 4.) C. Diff colitis. 5.) Discharge planning Plan: 1.) IVF support. Encourage advancing dietary intake as is feasible. 2.) Insulin management 3.) Follow glucose/ labs. 4.) Continue Tx for C. diff with po vanco. 5.) Discharge when stable. Outpt. management following discharge. D/W patient at the bedside. 01/19/17 11:50 Subjective: Feels a bit better, taking in more liquids and has had two loose stools this AM. Still with RUQ pain. Objective: VS as noted here. HEENT- anicteric, no oral lesions, skin color appears normal Neck- supple Chest- clear Mediport- NT/accessed CVS- RSR, no extra HS ABD- BS+, mildly distended and tender throughout, no rebound. EXT- symmetric LE edema, 1+-2+ Labs as noted here. Cr down to 1.7 Imaging- await PET/Ct findings. Vital Signs Temp Pulse Resp BP Pulse Ox 36.3 C 86 18 138/69 H 98 01/19/17 08:29 01/19/17 08:29 01/19/17 08:29 01/19/17 08:29 01/19/17 08:29 Laboratory Results 01/19/17 04:30 01/19/17 04:30 01/18/17 01/19/17 01/20/17 05:59 05:59 05:59 Intake Total 1963 2432 Output Total 1000 Balance 963 2432 ICD10 Worksheet Patient Problems: Problems Problem Status Onset Acute renal failure Acute Hyperglycemia due to type 2 diabetes mellitus Acute Pancreatic cancer Acute
--- NOTE | 2017-01-19 15:24 | HOSPPROG ---
Hospitalist Progress Note Assessment/Plan: 66 yo M w dm and pancreatic CA ARF on CKD - suspect hypovolemia + ARB cr at baseline dc IVF edema noted Pancreatic cancer, s/p stent, on chemo PET done, results pending DM II, uncontrolled -Lantus + SSI blood sugars chandan Anemia -stable Acute diverticulitis -Cipro/Flagyl Cdiff colitis -Flagyl mild Hypernatremia -change IVF 1/2 NS -encourage PO H2O dispo: inpt Subjective: case d/w dr lehman. cr at baseline Objective: Vital Signs Temp Pulse Resp BP Pulse Ox 36.3 C 86 18 138/69 H 98 01/19/17 08:29 01/19/17 08:29 01/19/17 08:29 01/19/17 08:29 01/19/17 08:29 Laboratory Results 01/19/17 04:30 01/19/17 04:30 01/18/17 01/19/17 01/20/17 05:59 05:59 05:59 Intake Total 1963 2432 Output Total 1000 Balance 963 2432 - Physical Exam Constitutional: no apparent distress, appears nourished, chronically ill appearing Eyes: PERRL, anicteric sclera Ears, Nose, Mouth, Throat: moist mucous membranes, hearing normal Cardiovascular: regular rate and rhythym, no murmur, rub, or gallop, edema Respiratory: no respiratory distress, no rales or rhonchi Gastrointestinal: normoactive bowel sounds, soft, non-tender abdomen, No hepatosplenomegally, No rebound Genitourinary: ahmadi in urethra Skin: warm Musculoskeletal: full muscle strength Neurologic: AAOx3 Psychiatric: interacting appropriately ICD10 Worksheet Patient Problems: Problems Problem Status Onset Acute renal failure Acute Hyperglycemia due to type 2 diabetes mellitus Acute Pancreatic cancer Acute
[2017-01-20] MEDS: metroNIDAZOLE 500 MG TAB PO SCH ×3 (05:13→21:49)
[2017-01-20] MEDS: HYDROCODONE/APAP 5/325 TAB PO PRN ×4 (05:16→20:13)
[2017-01-20] MEDS: INSULIN LISPRO 100 UNIT/ML SC SCH ×4 (08:31→21:49)
[2017-01-20] MEDS: CIPROFLOXACIN 500 MG TAB PO SCH ×2 (09:25→20:13)
[2017-01-20] MEDS: HEPARIN 5,000 UNIT/0.5 ML SYR SC SCH ×2 (09:25→21:49)
[2017-01-20] MEDS: PANTOPRAZOLE SODIUM 40 MG TAB PO SCH (09:25)
[2017-01-20] MEDS: INSULIN GLARGINE 100 UNITS/ML SYRINGE SC SCH ×2 (09:52→10:56)
--- NOTE | 2017-01-20 10:59 | HOSPPROG ---
Hospitalist Progress Note Assessment/Plan: 66 yo M w dm and pancreatic CA ARF on CKD - suspect hypovolemia + ARB cr at baseline dc IVF edema noted repeat labs pending deconditioning: lives w 91 year [address] mom [address] w RN Pancreatic cancer, s/p stent, on chemo PET done, results pending DM II, uncontrolled -Lantus + SSI decrease lantus to 24 given consecutive days of lows in AM Anemia -stable Acute diverticulitis -Cipro/Flagyl Cdiff colitis -Flagyl mild Hypernatremia resolved dispo: inpt goal is dc today; Subjective: hypoglycemic. diarrhea this AM. case d/w dr lehman Objective: Vital Signs Temp Pulse Resp BP Pulse Ox 36.5 C 68 16 138/69 H 99 01/20/17 07:36 01/20/17 07:36 01/20/17 07:36 01/20/17 07:36 01/20/17 07:36 Laboratory Results 01/19/17 04:30 01/19/17 04:30 01/19/17 01/20/17 01/21/17 05:59 05:59 05:59 Intake Total 2432 1125 120 Balance 2432 1125 120 - Physical Exam Constitutional: no apparent distress, chronically ill appearing Eyes: PERRL, anicteric sclera Ears, Nose, Mouth, Throat: moist mucous membranes Cardiovascular: regular rate and rhythym, no murmur, rub, or gallop Respiratory: no respiratory distress, no rales or rhonchi Gastrointestinal: normoactive bowel sounds, soft, non-tender abdomen Genitourinary: no bladder fullness, No ahmadi in urethra Skin: warm, normal color Musculoskeletal: No full muscle strength Neurologic: AAOx3 ICD10 Worksheet Patient Problems: Problems Problem Status Onset Acute renal failure Acute Hyperglycemia due to type 2 diabetes mellitus Acute Pancreatic cancer Acute
[2017-01-20 12:05] LABS: ANION GAP 10 mEq/L (8-16); CALCIUM 7.4 mg/dL (8.5-10.4); CARBON DIOXIDE 20 mEq/l (22-31); CHLORIDE 111 mEq/L (97-110); CREATININE 1.5 mg/dL (0.7-1.3); GLOMERULAR FILTRATION RATE 47; GLUCOSE 112 mg/dL (70-100); SODIUM 141 mEq/L (134-144)
--- NOTE | 2017-01-20 12:34 | SOAPPROG ---
SOAP Progress Note Assessment/Plan: Assessment: 1.) Pancreatic Carcinoma, S/P first cycle of FOLFIRINOX, now at week # 2, with elevated Cr, pre-renal #s a, diminished appetite and diminished food intake. Feeling effects of first cycle of Tx. Had PET/CT scan 01/18/17- disease is limited to the Pancreas , with no PET/CT evidence for disease extension outside of pancreatic capsue. Reviewed with patient and a copy of report given to patient. If recovered, has appt. with surgery to consider future surgical management. 2.) Hyperglycemia/DM 3.) Tx related myelosuppression. 4.) C. Diff colitis. 5.) Discharge planning Plan: 1.) IVF support. Encourage advancing dietary intake as is feasible. 2.) Insulin management 3.) Follow glucose/ labs. 4.) Continue Tx for C. diff with po vanco. 5.) Discharge 01/21 if improvement continues. Outpt. management following discharge. D/W patient at the bedside. 01/20/17 12:32 Subjective: Feeling better, had loose stool x 1 and taking in limited diet without N/V. No new sx. Objective: VSS, afebrile in NAD, lying flat in bed, mother at bedside HEENT- anicteric, no oral lesions, no oral petechiae Neck- supple Chest- RSR, no extra HS ABD- soft, NT no mass or HSM, BS+, no ascites EXT- 2+ -3+ LE edema bilaterally, symmetric pattern. Skin pale/intact Labs as noted here: Vital Signs Temp Pulse Resp BP Pulse Ox 36.5 C 68 16 138/69 H 99 01/20/17 07:36 01/20/17 07:36 01/20/17 07:36 01/20/17 07:36 01/20/17 07:36 Laboratory Results 01/19/17 04:30 01/20/17 11:25 01/19/17 01/20/17 01/21/17 05:59 05:59 05:59 Intake Total 2432 1125 120 Balance 2432 1125 120 ICD10 Worksheet Patient Problems: Problems Problem Status Onset Acute renal failure Acute Hyperglycemia due to type 2 diabetes mellitus Acute Pancreatic cancer Acute
[2017-01-21] MEDS: HYDROCODONE/APAP 5/325 TAB PO PRN ×4 (05:42→18:43)
[2017-01-21] MEDS: metroNIDAZOLE 500 MG TAB PO SCH ×3 (05:42→21:34)
[2017-01-21] MEDS: INSULIN LISPRO 100 UNIT/ML SC SCH ×4 (08:18→23:58)
[2017-01-21] MEDS: ONDANSETRON 4 MG/2 ML VIAL IVP PRN ×2 (09:07→23:56)
[2017-01-21] MEDS: PANTOPRAZOLE SODIUM 40 MG TAB PO SCH (09:13)
[2017-01-21] MEDS: CIPROFLOXACIN 500 MG TAB PO SCH ×2 (09:13→21:34)
[2017-01-21] MEDS: HEPARIN 5,000 UNIT/0.5 ML SYR SC SCH ×2 (09:13→21:34)
[2017-01-21] MEDS: INSULIN GLARGINE 100 UNITS/ML SYRINGE SC SCH (09:14)
--- NOTE | 2017-01-21 11:53 | SOAPPROG ---
SOAP Progress Note Assessment/Plan: Assessment: 1.) Pancreatic Carcinoma, S/P first cycle of FOLFIRINOX, now at week # 2, with elevated Cr, pre-renal #s a, diminished appetite and diminished food intake. Feeling effects of first cycle of Tx. Taking clear liquids so far, but had emesis with part of a banana this AM. He is not able to be discharged this AM. Had PET/CT scan 01/18/17- disease is limited to the Pancreas , with no PET/CT evidence for disease extension outside of pancreatic capsue. Reviewed with patient and a copy of report given to patient. If recovered, has appt. with surgery to consider future surgical management. 2.) Hyperglycemia/DM 3.) Tx related myelosuppression. 4.) C. Diff colitis. 5.) Discharge planning Plan: 1.) IVF support. Encourage advancing dietary intake as is feasible. 2.) Insulin management 3.) Follow glucose/ labs. 4.) Continue Tx for C. diff with po vanco. 5.) Discharge 01/21 if improvement continues. Outpt. management following discharge. D/W patient at the bedside. 01/21/17 11:52 Subjective: Had emesis after eating part of a banana this AM. Has tolerated small amounts of clear broth and juice thus far. Had one loose stool. No hiccups / belching/dry heaves. Objective: HEENT- pale, anicteric, grade 1 mucositis/stomatitis Neck- supple Chest- clear Left sided mediport is accessed/NT CVS- RSR, no extra HS ABD- soft, NT BS+, no mass EXT- no edema Skin intact Vital Signs Temp Pulse Resp BP Pulse Ox 36.6 C 87 19 143/66 H 98 01/21/17 07:23 01/21/17 07:23 01/21/17 07:23 01/21/17 07:23 01/21/17 07:23 Laboratory Results 01/19/17 04:30 01/20/17 11:25 01/20/17 01/21/17 01/22/17 05:59 05:59 05:59 Intake Total 1125 1410 Balance 1125 1410 ICD10 Worksheet Patient Problems: Problems Problem Status Onset Acute renal failure Acute Hyperglycemia due to type 2 diabetes mellitus Acute Pancreatic cancer Acute
--- NOTE | 2017-01-21 14:39 | HOSPPROG ---
Hospitalist Progress Note Assessment/Plan: 66 yo M w dm and pancreatic CA black diarrhea: check hct this PM 1 small episode follow ARF on CKD - suspect hypovolemia + ARB cr at baseline dc IVF edema noted repeat labs pending deconditioning: lives w 91 year [address] w RN Pancreatic cancer, s/p stent, on chemo PET done, results pending DM II, uncontrolled -Lantus + SSI decrease lantus to 24 given consecutive days of lows in AM Anemia -stable Acute diverticulitis -Cipro/Flagyl Cdiff colitis -Flagyl mild Hypernatremia resolved dispo: inpt goal is dc today; Subjective: case d/w dr lehman. black diarrhea. c/o ear pain Objective: Vital Signs Temp Pulse Resp BP Pulse Ox 36.6 C 87 19 143/66 H 98 01/21/17 07:23 01/21/17 07:23 01/21/17 07:23 01/21/17 07:23 01/21/17 07:23 Laboratory Results 01/19/17 04:30 01/20/17 11:25 01/20/17 01/21/17 01/22/17 05:59 05:59 05:59 Intake Total 1125 1410 Balance 1125 1410 - Physical Exam Constitutional: no apparent distress, appears nourished Eyes: PERRL, anicteric sclera Ears, Nose, Mouth, Throat: moist mucous membranes Cardiovascular: regular rate and rhythym, no murmur, rub, or gallop Respiratory: no respiratory distress, no rales or rhonchi Gastrointestinal: normoactive bowel sounds, soft, non-tender abdomen, No guarding, No rebound Genitourinary: no bladder fullness, No ahmadi in urethra Skin: warm, normal color Musculoskeletal: full muscle strength Neurologic: AAOx3, sensation intact bilaterally ICD10 Worksheet Patient Problems: Problems Problem Status Onset Acute renal failure Acute Hyperglycemia due to type 2 diabetes mellitus Acute Pancreatic cancer Acute
--- NOTE | 2017-01-21 16:56 | ASMTCMCOM ---
CM Note CM Note Notes: Met with pt and his mother with whom he lives. Pt denied any HC needs. He states that he takes of his mother and she takes care of him. Pt still having N/V. C/M available if DC needs change. Date Signed: 01/21/2017 04:55 PM Electronically Signed By:Fatmata Aguiar LCSW
[2017-01-21] MEDS ORDERED: D50W 25 GM/50 ML VIAL ONE (21:39)
[2017-01-21] MEDS ORDERED: D50W 25 GM/50 ML VIAL IVP PRN (22:00)
[2017-01-22] MEDS: metroNIDAZOLE 500 MG TAB PO SCH ×3 (05:20→22:23)
[2017-01-22] MEDS: HYDROCODONE/APAP 5/325 TAB PO PRN ×3 (05:23→22:22)
[2017-01-22] MEDS: ONDANSETRON 4 MG/2 ML VIAL IVP PRN ×2 (05:34→22:59)
[2017-01-22 05:45] LABS: HEMATOCRIT 28.9 % (40.0-51.0); HEMOGLOBIN 9.7 g/dL (13.7-17.5); LIPEMIA HEMOLYSIS FLAG 80 (0-99); MEAN CELL HEMOGLOBIN 35.1 pg (27.9-34.1); MEAN CELL HEMOGLOBIN CONCENTR. 33.6 g/dL (32.4-36.7); MEAN CELL VOLUME 104.7 fL (81.5-99.8); PLATELET CLUMPS FLAG 0 (0-99); RED BLOOD CELL COUNT 2.76 10^6/uL (4.40-6.38)
[2017-01-22 06:09] LABS: PLATELET COUNT 34 10^3/uL (150-400)
[2017-01-22 07:01] LABS: PLATELET ESTIMATE DECREASED (ADEQ)
[2017-01-22 08:44] LABS: ADD DIFF? YES; ADD MORPH? NO; ADD SCAN? YES; ATYPICAL LYMPHOCYTE FLAG 0 (0-99); FRAGMENT RBC FLAG 0 (0-99); HEMOGLOBIN 9.7 g/dL (13.7-17.5); LEFT SHIFT FLG 20 (0-99); LIPEMIA HEMOLYSIS FLAG 90 (0-99); MEAN CELL HEMOGLOBIN 35.7 pg (27.9-34.1); MEAN CELL HEMOGLOBIN CONCENTR. 34.6 g/dL (32.4-36.7); MEAN CELL VOLUME 102.9 fL (81.5-99.8); MEAN PLATELET VOLUME 11.1 fL (8.7-11.7); PLATELET CLUMPS FLAG 0 (0-99); RED BLOOD CELL COUNT 2.72 10^6/uL (4.40-6.38); RED CELL DISTRIBUTION WIDTH 12.9 % (11.5-15.2)
[2017-01-22 08:51] LABS: PLATELET COUNT 36 10^3/uL (150-400)
--- NOTE | 2017-01-22 08:54 | HOSPPROG ---
Hospitalist Progress Note Assessment/Plan: 66 yo M w dm and pancreatic CA Pancreatic cancer, s/p stent, on chemo PET done, no extension of disease outside pancreatic capsule Malnutrition - still very poor appetite encourage oral intake MONIKA on CKD - suspect hypovolemia + ARB cr at baseline off IVF's Pancytopenia - last chemo was 9 days ago, abrupt drop. No indication for transfusion discussed G-CSF with onc- would give only if febrile / infected follow deconditioning: lives w 91 year old mom DM II, now with low bg's, 50's-60's with decreased oral intake -Lantus + SSI decrease lantus again to 20 given consecutive days of lows in AM Acute diverticulitis -Cipro/Flagyl Cdiff colitis - mild -Flagyl Hypernatremia resolved dispo: inpt, poss dc in am if oral intake and blood counts improved Subjective: Pt still weak with poor appetite. Taking broth and jello, but not much solid food. No N/V. No fevers. No pain. Objective: Vital Signs Temp Pulse Resp BP Pulse Ox 37.0 C 82 16 136/64 H 99 01/22/17 03:47 01/22/17 03:47 01/22/17 03:47 01/22/17 03:47 01/22/17 03:47 01/21/17 01/22/17 01/23/17 05:59 05:59 05:59 Intake Total 1410 1400 Balance 1410 1400 - Physical Exam Constitutional: chronically ill appearing Eyes: PERRL Ears, Nose, Mouth, Throat: moist mucous membranes Cardiovascular: regular rate and rhythym Gastrointestinal: normoactive bowel sounds, soft, non-tender abdomen Skin: warm Musculoskeletal: generalized weakness Neurologic: AAOx3 Psychiatric: interacting appropriately ICD10 Worksheet Patient Problems: Problems Problem Status Onset Acute renal failure Acute Hyperglycemia due to type 2 diabetes mellitus Acute Pancreatic cancer Acute
[2017-01-22 09:02] LABS: ALANINE AMINOTRANSFERASE 36 IU/L (21-72); ALBUMIN 1.9 g/dL (3.5-5.0); ALKALINE PHOSPHATASE 91 IU/L (38-126); ANION GAP 8 mEq/L (8-16); ASPARTATE AMINOTRANSFERASE 17 IU/L (17-59); BILIRUBIN,TOTAL 0.6 mg/dL (0.1-1.4); CALCIUM 7.3 mg/dL (8.5-10.4); CARBON DIOXIDE 19 mEq/l (22-31); CHLORIDE 112 mEq/L (97-110); CREATININE 1.3 mg/dL (0.7-1.3); GLOMERULAR FILTRATION RATE 55; GLUCOSE 120 mg/dL (70-100); POTASSIUM 3.9 mEq/L (3.5-5.2); SODIUM 139 mEq/L (134-144); TOTAL PROTEIN 3.7 g/dL (6.3-8.2)
[2017-01-22] MEDS: PANTOPRAZOLE SODIUM 40 MG TAB PO SCH (10:03)
[2017-01-22] MEDS: CIPROFLOXACIN 500 MG TAB PO SCH ×2 (10:03→19:53)
[2017-01-22] MEDS: INSULIN GLARGINE 100 UNITS/ML SYRINGE SC SCH (10:03)
[2017-01-22] MEDS: INSULIN LISPRO 100 UNIT/ML SC SCH ×4 (10:09→22:23)
[2017-01-22] MEDS: HEPARIN 5,000 UNIT/0.5 ML SYR SC SCH ×2 (10:11→19:53)
[2017-01-22 10:36] LABS: PLATELET ESTIMATE DECREASED (ADEQ)
[2017-01-22] MEDS: MBX SOLN 30 ML BOTTLE PO PRN (11:09)
--- NOTE | 2017-01-22 14:12 | SOAPPROG ---
SOAP Progress Note Assessment/Plan: Assessment: 1.) Pancreatic Carcinoma, S/P first cycle of FOLFIRINOX, now at week # 2, with elevated Cr, pre-renal #s a, diminished appetite and diminished food intake. Feeling effects of first cycle of Tx. Taking clear liquids so far, but limited caloric intake. Met with Science Technician today. Await adequate oral intake to allow discharge home. Had PET/CT scan 01/18/17- disease is limited to the Pancreas , with no PET/CT evidence for disease extension outside of pancreatic capsue. Reviewed with patient and a copy of report given to patient. If recovered, has appt. with surgery to consider future surgical management. 2.) Hyperglycemia/DM 3.) Tx related myelosuppression: of note WBC 0.39 but no fever, PLT 34 but no bleeding. Did not believe that G-CSF warranted as of today as D/W patient. If he develops fever, will institute G-CSF. 4.) C. Diff colitis- on po vanco. Diarrhea has resolved. 5.) Discharge planning- anticipate discharge home in the next few days. He lives with family who can provide care for him at home. Plan: 1.) IVF support. Encourage advancing dietary intake as is feasible. 2.) Insulin management 3.) Follow glucose/ labs. 4.) Continue Tx for C. diff with po vanco. 5.) Discharge 01/23 or 01/24 if improvement continues. Outpt. management following discharge. D/W patient at the bedside. 01/22/17 14:12 Subjective: Limited oral intake in past 24 hours. Had small bowel movement in past 24 hours. Still with mild stomatitis sx. of the lip. Some abdominal pain. Mild nausea, no emesis Objective: VSS afebrile, as noted here HEENT- pale, anicteric, grade 0 stomatitis of the lower lip. Neck- supple Chest- clear CVS- RSR, no extra HS, Mediport- accessed/NT ABD- soft, NT BS+, nondistended EXT- 2+ symmetric LE edema, support hose in place. Labs as noted here: WBC 0.39, Hgb 9.7, PLT 36 K BUN/CR 21/1.3 Glu 120 Vital Signs Temp Pulse Resp BP Pulse Ox 36.7 C 72 21 H 122/68 H 98 01/22/17 08:54 01/22/17 08:54 01/22/17 08:54 01/22/17 08:54 01/22/17 08:54 Laboratory Results 01/22/17 08:40 01/22/17 08:40 01/21/17 01/22/17 01/23/17 05:59 05:59 05:59 Intake Total 1410 1400 Balance 1410 1400 ICD10 Worksheet Patient Problems: Problems Problem Status Onset Acute renal failure Acute Hyperglycemia due to type 2 diabetes mellitus Acute Pancreatic cancer Acute
[2017-01-22 19:48] LABS: SCAN POSITIVE
[2017-01-22] MEDS ORDERED: CALCIUM CARBONATE 500 MG CHEWABLE TAB PO PRN (22:16)
[2017-01-23] MEDS: metroNIDAZOLE 500 MG TAB PO SCH ×3 (05:09→22:39)
[2017-01-23] MEDS: PANTOPRAZOLE SODIUM 40 MG TAB PO SCH (05:40)
[2017-01-23] MEDS: MBX SOLN 30 ML BOTTLE PO PRN ×7 (05:47→22:38)
[2017-01-23 06:02] LABS: ADD MORPH? NO; ATYPICAL LYMPHOCYTE FLAG 0 (0-99); FRAGMENT RBC FLAG 0 (0-99); HEMATOCRIT 30.3 % (40.0-51.0); HEMOGLOBIN 10.4 g/dL (13.7-17.5); LEFT SHIFT FLG 10 (0-99); LIPEMIA HEMOLYSIS FLAG 90 (0-99); MEAN CELL HEMOGLOBIN 35.3 pg (27.9-34.1); MEAN CELL HEMOGLOBIN CONCENTR. 34.3 g/dL (32.4-36.7); MEAN CELL VOLUME 102.7 fL (81.5-99.8); MEAN PLATELET VOLUME 11.1 fL (8.7-11.7); PLATELET CLUMPS FLAG 0 (0-99); RED BLOOD CELL COUNT 2.95 10^6/uL (4.40-6.38); RED CELL DISTRIBUTION WIDTH 12.8 % (11.5-15.2)
[2017-01-23 06:25] LABS: PLATELET COUNT 31 10^3/uL (150-400)
[2017-01-23 06:28] LABS: ADD SCAN? NO
[2017-01-23 06:29] LABS: ADD DIFF? NO
[2017-01-23 07:00] LABS: PLATELET ESTIMATE DECREASED (ADEQ)
[2017-01-23] MEDS: CIPROFLOXACIN 500 MG TAB PO SCH ×2 (09:43→20:45)
[2017-01-23] MEDS: HEPARIN 5,000 UNIT/0.5 ML SYR SC SCH ×2 (09:44→20:45)
[2017-01-23] MEDS: INSULIN GLARGINE 100 UNITS/ML SYRINGE SC SCH (09:44)
[2017-01-23] MEDS: INSULIN LISPRO 100 UNIT/ML SC SCH ×3 (10:51→17:37)
--- NOTE | 2017-01-23 12:19 | SOAPPROG ---
SOAP Progress Note Assessment/Plan: Assessment: Assessment: 1.) Pancreatic Carcinoma, S/P first cycle of FOLFIRINOX, now at week # 2, with elevated Cr, now back to baseline, diminished appetite and diminished food intake, seems to be improving. Feeling effects of first cycle of Tx. Met with Audit Lead today. Await adequate oral intake to allow discharge home, possibly home Had PET/CT scan 01/18/17- disease is limited to the Pancreas , with no PET/CT evidence for disease extension outside of pancreatic capsue. Reviewed with patient and a copy of report given to patient. If recovered, has appt. with surgery to consider future surgical management. 2.) Hyperglycemia/DM 3.) Tx related myelosuppression: WBC up a bit, PLT 31 but no bleeding. Did not believe that G-CSF warranted as of today as D/W patient. If he develops fever, will institute G-CSF. 4.) C. Diff colitis- on po flagyl. Diarrhea has resolved. 5.) Discharge planning- anticipate discharge home in the next few days, possibly tomorrow. He lives with family who can provide care for him at home. 6. Diverticulitis, on cipro and Flagyl Plan: 1.) IVF support. Encourage advancing dietary intake as is feasible. 2.) Insulin management 3.) Follow glucose/ labs. 4.) Continue Tx for C. diff with po flagyl. 5.) Discharge 01/24 if improvement continues. Outpt. management following discharge. D/W patient at the bedside. 01/23/17 12:08 Subjective: Feels ok appetite is better,but still a bit limited Objective: Vital Signs Temp Pulse Resp BP Pulse Ox 97.9 F 102 H 18 130/72 H 98 01/23/17 09:55 01/23/17 09:55 01/23/17 09:55 01/23/17 09:55 01/23/17 09:55 Laboratory Results 01/23/17 05:20 01/22/17 08:40 01/22/17 01/23/17 01/24/17 05:59 05:59 05:59 Intake Total 1400 1700 Output Total 100 Balance 1400 1600 Physical Exam - Physical Exam General Appearance: alert, no apparent distress Respiratory: lungs clear, normal breath sounds Cardiac/Chest: normal peripheral pulses, regular rate, rhythm Abdomen: normal bowel sounds, non-tender Lymphatic: no adenopathy ICD10 Worksheet Patient Problems: Problems Problem Status Onset Acute renal failure Acute Hyperglycemia due to type 2 diabetes mellitus Acute Pancreatic cancer Acute
[2017-01-23] MEDS: ONDANSETRON 4 MG/2 ML VIAL IVP PRN (14:54)
--- NOTE | 2017-01-23 15:46 | HOSPPROG ---
Hospitalist Progress Note Assessment/Plan: 66 yo M w dm and pancreatic CA Pancreatic cancer, s/p stent, on chemo PET done, no extension of disease outside pancreatic capsule Malnutrition - still very poor appetite encourage oral intake MONIKA on CKD - suspect hypovolemia + ARB cr at baseline off IVF's Pancytopenia - last chemo was 9 days ago, abrupt drop. No indication for transfusion discussed G-CSF with onc- would give only if febrile / infected follow deconditioning: lives w 91 year old mom DM II, bg's more stable in 100's on lower dose lantus (had lows previously) -Lantus + SSI Acute diverticulitis -Cipro/Flagyl Cdiff colitis - mild -Flagyl Hypernatremia resolved dispo: inpt, poss dc in am if oral intake and blood counts improved Subjective: Pt resting comfortably in bed. No complaints. Still poor appetite , but slowly improving. Objective: Vital Signs Temp Pulse Resp BP Pulse Ox 36.6 C 102 H 18 130/72 H 98 01/23/17 09:55 01/23/17 09:55 01/23/17 09:55 01/23/17 09:55 01/23/17 09:55 Laboratory Results 01/23/17 05:20 01/22/17 08:40 01/22/17 01/23/17 01/24/17 05:59 05:59 05:59 Intake Total 1400 1700 Output Total 100 Balance 1400 1600 - Physical Exam Constitutional: no apparent distress Eyes: PERRL Ears, Nose, Mouth, Throat: moist mucous membranes Cardiovascular: regular rate and rhythym Respiratory: no respiratory distress Gastrointestinal: normoactive bowel sounds, soft, non-tender abdomen Skin: warm Musculoskeletal: generalized weakness Neurologic: AAOx3 Psychiatric: interacting appropriately ICD10 Worksheet Patient Problems: Problems Problem Status Onset Acute renal failure Acute Hyperglycemia due to type 2 diabetes mellitus Acute Pancreatic cancer Acute
[2017-01-23] MEDS: HYDROCODONE/APAP 5/325 TAB PO PRN ×2 (18:36→22:39)
[2017-01-23] MEDS ORDERED: ONDANSETRON DISINTEGRATING 4 MG TAB PO PRN (19:14)
[2017-01-24] MEDS: INSULIN LISPRO 100 UNIT/ML SC SCH ×3 (02:40→12:27)
[2017-01-24] MEDS: MBX SOLN 30 ML BOTTLE PO PRN ×4 (03:22→15:51)
[2017-01-24] MEDS: metroNIDAZOLE 500 MG TAB PO SCH ×2 (05:37→14:59)
[2017-01-24] MEDS: HYDROCODONE/APAP 5/325 TAB PO PRN (05:37)
[2017-01-24 07:46] VITALS: RESP 14; TEMP 98.2
[2017-01-24] MEDS: PANTOPRAZOLE SODIUM 40 MG TAB PO SCH (08:01)
[2017-01-24] MEDS: INSULIN GLARGINE 100 UNITS/ML SYRINGE SC SCH (08:28)
[2017-01-24 08:46] LABS: ADD MORPH? NO; ATYPICAL LYMPHOCYTE FLAG 0 (0-99); FRAGMENT RBC FLAG 0 (0-99); HEMATOCRIT 26.6 % (40.0-51.0); HEMOGLOBIN 9.2 g/dL (13.7-17.5); LEFT SHIFT FLG 0 (0-99); LIPEMIA HEMOLYSIS FLAG 90 (0-99); MEAN CELL HEMOGLOBIN 35.7 pg (27.9-34.1); MEAN CELL HEMOGLOBIN CONCENTR. 34.6 g/dL (32.4-36.7); MEAN CELL VOLUME 103.1 fL (81.5-99.8); MEAN PLATELET VOLUME 11.6 fL (8.7-11.7); PLATELET CLUMPS FLAG 0 (0-99); RED BLOOD CELL COUNT 2.58 10^6/uL (4.40-6.38)
[2017-01-24 08:51] LABS: PLATELET COUNT 31 10^3/uL (150-400)
[2017-01-24 08:57] LABS: ADD SCAN? NO
[2017-01-24 08:58] LABS: ADD DIFF? NO
[2017-01-24 09:16] LABS: ANION GAP 10 mEq/L (8-16); CALCIUM 7.5 mg/dL (8.5-10.4); CARBON DIOXIDE 21 mEq/l (22-31); CHLORIDE 113 mEq/L (97-110); CREATININE 1.5 mg/dL (0.7-1.3); GLOMERULAR FILTRATION RATE 47; GLUCOSE 105 mg/dL (70-100); POTASSIUM 3.6 mEq/L (3.5-5.2); SODIUM 144 mEq/L (134-144)
[2017-01-24 09:26] LABS: PLATELET ESTIMATE DECREASED (ADEQ)
[2017-01-24] MEDS: HEPARIN 5,000 UNIT/0.5 ML SYR SC SCH (09:50)
[2017-01-24] MEDS: CIPROFLOXACIN 500 MG TAB PO SCH (10:40)
[2017-01-24 16:40] VITALS: BP 124/62; PULSE 101; O2SAT 97
--- NOTE | 2017-01-24 17:43 | GDS ---
[f rep st] DISCHARGE SUMMARY DISCHARGE DIAGNOSES: 1. Acute diverticulitis, status post 1 week of ciprofloxacin. 2. Clostridium difficile colitis, on Flagyl. 3. Type 2 diabetes mellitus. 4. Pancreatic cancer, on chemotherapy. 5. Malnutrition with poor appetite secondary to chemotherapy, improved. 6. Acute kidney injury in the setting of hypovolemia and angiotensin receptor lizz. Creatinine h as returned to baseline. 7. Chronic kidney disease. 8. Pancytopenia secondary to chemotherapy. CONSULTANTS: 1. Dr. Daniele Herr, Oncology. HISTORY: For details, please see his history and physical dated January 16, 2017. In brief, Mr. Adalid lomas is a 66-year-old male with a history of pancreatic cancer and diabetes, who presented to the e mergency department with elevated blood sugars. He was found to have acute kidney injury with a crea tinine of 4.7 and hyperglycemia. He was admitted to the hospital for further evaluation and manageme nt. HOSPITAL COURSE: The patient was admitted to the Cancer Care Unit. It is thought his acute kidney i njury was secondary to hypovolemia due to poor appetite in the setting of chemotherapy for his pancre atic cancer. In addition, his angiotensin receptor lizz may have played a role in his acute kidne y injury. His creatinine has improved from 4.7 to 1.5 at discharge, and his losartan is discontinued for now, as he has been normotensive during the hospitalization. He developed some abdominal discom fort, and a CT of his abdomen showed findings suspicious for possible acute diverticulitis. He was s tarted on ciprofloxacin and Flagyl. He was also diagnosed with C difficile colitis and has completed a week of Flagyl at the time of discharge. He will continue the Flagyl for 1 more week, for a total of 2 weeks of therapy. He was also noted to have developed pancytopenia with neutropenia during the hospitalization. This is thought to be secondary to chemotherapy. He had no fevers. G-CSF is defe rred unless he develops fevers. His appetite slowly improved, and he was deemed safe for discharge h ome. It was noted on the day of discharge that he had lower extremity edema. This was in the settin g of poor albumin status, with an albumin of 1.9, and malnutrition. A lower extremity Doppler was ne gative for DVT. With respect to his diabetes, he required repeatedly decreased doses of his Lantus d ue to hypoglycemia. His baseline Lantus dose was 60, and he is discharged home on just 20 units blake y, with blood sugars in the 100s on that lower dose. This may need to be up-titrated as his appetite improves, though with his pancreatic cancer and associated chemotherapy, his insulin needs are likel y lower. His glimepiride is also discontinued. DISPOSITION: Patient is discharged home in stable condition. FOLLOWUP: 1. Dr. Kalie Poe, Oncology. 2. Dr. Zafar Kirby, Primary Care. DISCHARGE MEDICATIONS: 1. Please see [facility] for completed outpatient medication list. New medications on discharge inclu de:. 2. Flagyl 500 mg p.o. q.8 hours #21, no refills, for a total of 2 weeks of treatment. 3. Zofran 4 mg p.o. q.4 hours p.r.n. #20, no refills. 4. Protonix 40 mg p.o. daily #30, no refills. /[id number]/MODL
== END 2017-01-24 17:07 | disposition home or self-care (01) | DRG 683 ==
LOC: F1N 01-16 00:38 → OBSVTOIN 01-16 13:30
PROVIDERS: ADMIT Family Medicine; ATTEND Family Medicine
DX: N17.9 Acute kidney failure, unspecified (principal); E11.65 Type 2 diabetes mellitus with hyperglycemia; A04.72 Enterocolitis due to Clostridium difficile, not specified as recurrent; E46 Unspecified protein-calorie malnutrition; K57.92 Diverticulitis of intestine, part unspecified, without perforation or abscess without bleeding; C25.9 Malignant neoplasm of pancreas, unspecified; E11.22 Type 2 diabetes mellitus with diabetic chronic kidney disease; N18.9 Chronic kidney disease, unspecified; Z79.4 Long term (current) use of insulin; E86.0 Dehydration; E87.0 Hyperosmolality and hypernatremia; Z87.442 Personal history of urinary calculi
CPT/HCPCS: 97161-GP; G8978-GP-CI; G8979-GP-CI; G8980-GP-CI; J0744; J1642; J1815; J2405

== ENCOUNTER 2017-04-29 12:27 | Outpatient (CLI) | payer BC | END 2017-04-29 16:48 | disposition home or self-care (01) | LOC: FOBOP 12:27 | PROVIDERS: ATTEND Internal Medicine Hematology & Oncology | PROC: 30233N1 Transfusion of Nonautologous Red Blood Cells into Peripheral Vein, Percutaneous Approach (ICD-10-PCS; principal; 2017-04-29) | DX: C25.9 Malignant neoplasm of pancreas, unspecified (principal) | CPT/HCPCS: 36430; P9016 ==

== ENCOUNTER 2017-06-07 17:02 | Inpatient (IN) | payer OTHER, BC ==
[2017-06-07] MEDS ORDERED: NS 1,000 ML IV ONE ×2 (18:35→19:58)
--- NOTE | 2017-06-07 18:39 | EDPHY ---
H & P Time Seen by Provider: 06/07/17 17:54 HPI/ROS: Chief complaint. Fall in bathroom HPI. 67-year-old male with history of pancreatic cancer has been weak and wobbly all day since his chemotherapy the last round May 28. He fell in the bathroom just by being off balance and weak. He struck his forehead. Denies loss of consciousness. Has significant abrasion to the top his head however. Denies neck pain. He also had vomiting x1 today and has had decreased oral intake the last several days. Denies fever, cough, chest pain, shortness of breath, abdominal pain. He also fell 1 week ago. He was unable to get up 1 week ago and he was unable to get up by himself today and required assistance. No other injuries. ROS Constitutional. Generalized weakness Eyes. no problems with vision ENT. no sore throat, no nasal drainage Cardiovascular. no chest pain Respiratory. no shortness of breath, no cough Abdominal. no abdominal pain, no nausea/vomiting, no diarrhea . no problems urinating MS. no calf pain/swelling, no neck/back pain, no joint pain Skin. Abrasion to head Lymph. no swollen glands Neuro. no headache, no dizziness, difficulty walking; not with speech Past Medical/Surgical History: Pancreatic cancer, diabetes, arthritis, gout, dyslipidemia, hypertension, liver stent Social History: Single, nonsmoker, no alcohol Smoking Status: Never smoked Physical Exam: General Appearance: Alert pale-appearing male vital signs are stable Eyes: Pupils equal and round no pallor or injection. ENT, Mouth: Mucous membranes are moist. No hemotympanum or Hickey sign Respiratory: There are no retractions, lungs are clear to auscultation. Cardiovascular: Regular rate and rhythm. Gastrointestinal: Abdomen is soft and nontender, no masses, bowel sounds normal. Neurological: Awake and alert, sensory and motor exams grossly normal. Skin: Abrasion to forehead Musculoskeletal: Neck is supple nontender. Extremities symmetrical, full range of motion. Psychiatric: Patient is oriented X 3, there is no agitation. Constitutional: Initial Vital Signs Temperature (C) 37.1 C 06/07/17 17:05 Heart Rate 110 H 06/07/17 17:05 Respiratory Rate 16 06/07/17 17:05 Blood Pressure 118/71 06/07/17 17:05 O2 Sat (%) 94 06/07/17 17:05 O2 Delivery Mode Room Air Allergies/Adverse Reactions: coconut Allergy (Verified 01/16/17 08:37) ketoconazole Allergy (Verified 01/16/17 08:37) Rash niacinamide Allergy (Verified 06/07/17 22:03) Rash Home Medications: Medication Instructions Recorded Allopurinol [Allopurinol 100 MG 100 mg PO BID 01/16/17 (*)] Herbals/Supplements -Info Only 1 ea PO DAILY 01/16/17 LORazepam [Ativan (*)] 0.5 mg PO HS 01/16/17 Multivitamins [Multivitamin (*)] 1 each PO SUTUTHSA@21 01/16/17 Potassium Chloride 10 meq PO BID 01/16/17 Prochlorperazine Maleate 10 mg PO TID PRN 01/16/17 [Compazine 10mg (*)] traMADol [Ultram 50 mg (*)] 50 mg PO HS 01/16/17 Pantoprazole Sodium [Protonix 40mg 40 mg PO DAILY #30 tab 01/24/17 (*)] Acetaminophen [Tylenol ES 500 mg 500 mg PO BID 05/19/17 (*)] Furosemide [Lasix 40 MG (*)] 40 mg PO DAILY 05/19/17 Glucosamine Sulfate [Glucosamine 500 mg PO MWF@21 05/19/17 Sulfate 500 MG (*)] Hydrocortisone [Proctofoam-Hc 1 marvel HI DAILY PRN 05/19/17 (OTC)] Insulin Glargine,Hum.rec.anlog 0 - 20 unit SQ DAILY 05/19/17 [Basaglar Kwikpen U-100] Medical Decision Making - Diagnostics Imaging Results: Imaging Impressions Head CT 06/07/17 18:36 Impression: 1. No intracranial hemorrhage. 2. No skull fracture. 3. No epidural or subdural hematoma. 4. Right scalp laceration. Findings and recommendations discussed with Emergency Department physician, Alea Vazquez PA-C for Daniele Parks Dorcas at 1900 hour, 06/07/2017. Final report concurs with initial preliminary interpretation. Chest X-Ray 06/07/17 19:58 Impression: Bilateral lower lobe pneumonia, left greater than right, with small left pleural effusion. Abdomen Ultrasound 06/07/17 19:59 Impression: 1. Limited due to patient body habitus and bowel gas. 2. Hepatic steatosis, with limited evaluation of hepatic parenchyma, and, therefore, hepatic masses cannot be excluded. 3. Gallbladder sludge, without definite shadowing calculi. Biliary system not well visualized. On recent CT, there is a common bile duct stent, with air in the gallbladder, possibly from reflux from the biliary stent. Biliary stent not visualized today. 4. Pancreas obscured by bowel gas. 5. Limited evaluation of the kidneys, with nonvisualization of the right kidney and no definite left hydronephrosis. 6. Bilateral pleural effusions. 7. Small amount of diffuse ascites. Findings and recommendations discussed with Emergency Department physician, Daniele Toscano M.D., at 2140 hours, on June 07, 2017. Final report concurs with initial preliminary interpretation. Head CT shows no evidence of intracranial bleeding Chest x-ray reviewed by me shows bilateral lower lobe pneumonia Ultrasound gallbladder reviewed by me and discussed with Dr. Buchanan knee shows no evidence for cholecystitis Procedures: IV normal saline Septic workup including blood in urine cultures ED Course/Re-evaluation: Re-evaluation 8:00 p.m.. Patient and his mom and I discussed laboratory and imaging results. We discussed the markedly elevated white blood cell count. We discussed further workup. They expressed understanding and agreement Sepsis workup 8:50 p.m. is lactate is positive. Severe sepsis is declared now. Patient will be given 30 male per kg IV fluid IV Levaquin. I consulted and discussed the case with Dr. Awad, hospitalist, who agrees to the admission Differential Diagnosis: I considered acute cholecystitis, urinary tract infection, intracranial bleed from his fall, sepsis, pneumonia. It appears the patient has acute bilateral pneumonia and positive lactate. Gallbladder appears normal - Data Points Laboratory Results: Laboratory Results 06/07/17 18:00 06/07/17 18:00 06/07/17 06/07/17 06/07/17 20:21 18:00 18:00 WBC RBC Hgb Hct MCV MCH MCHC RDW Plt Count MPV Neut % (Auto) Lymph % (Auto) [place] % (Auto) Eos % (Auto) Baso % (Auto) Nucleat RBC Rel Count Absolute Neuts (auto) Absolute Lymphs (auto) Absolute Monos (auto) Absolute Eos (auto) Absolute Basos (auto) Absolute Nucleated RBC Immature Gran % Seg Neutrophils % Band Neutrophils % Lymphocytes % Monocytes % Immature Gran # Absolute Seg Neuts Absolute Band Neuts Absolute Lymphocytes Absolute Monocytes Platelet Estimate Polychromasia Tear Drop Cells Oval Macrocytes Smear Review By PT INR APTT VBG Lactic Acid 3.0 mmol/L H mmol/L (0.7-2.1) Sodium 138 mEq/L mEq/L (135-145) Potassium 3.4 mEq/L L mEq/L (3.5-5.2) Chloride 107 mEq/L mEq/L (97-110) Carbon Dioxide 20 mEq/l L mEq/l (22-31) Anion Gap 11 mEq/L mEq/L (8-16) BUN 10 mg/dL mg/dL (7-23) Creatinine 1.5 mg/dL H mg/dL (0.7-1.3) Estimated GFR 46 Glucose 178 mg/dL H mg/dL (70-100) Calcium 7.6 mg/dL L mg/dL (8.5-10.4) Total Bilirubin 0.5 mg/dL mg/dL (0.1-1.4) Conjugated Bilirubin 0.5 mg/dL mg/dL (0.0-0.5) Unconjugated Bilirubin 0.0 mg/dL mg/dL (0.0-1.1) AST 81 IU/L H IU/L (17-59) ALT 52 IU/L IU/L (21-72) Alkaline Phosphatase 652 IU/L H IU/L (38-126) Total Protein 4.4 g/dL L g/dL (6.3-8.2) Albumin 2.1 g/dL L g/dL (3.5-5.0) 06/07/17 06/07/17 18:00 18:00 WBC 31.72 10^3/uL H 10^3/uL (3.80-9.50) RBC 2.62 10^6/uL L 10^6/uL (4.40-6.38) Hgb 9.4 g/dL L g/dL (13.7-17.5) Hct 27.6 % L % (40.0-51.0) MCV 105.3 fL H fL (81.5-99.8) MCH 35.9 pg H pg (27.9-34.1) MCHC 34.1 g/dL g/dL (32.4-36.7) RDW 22.5 % H % (11.5-15.2) Plt Count 111 10^3/uL L 10^3/uL (150-400) MPV 11.7 fL fL (8.7-11.7) Neut % (Auto) Not Reported Lymph % (Auto) Not Reported [place] % (Auto) Not Reported Eos % (Auto) Not Reported Baso % (Auto) Not Reported Nucleat RBC Rel Count 0.1 % % (0.0-0.2) Absolute Neuts (auto) Not Reported Absolute Lymphs (auto) Not Reported Absolute Monos (auto) Not Reported Absolute Eos (auto) Not Reported Absolute Basos (auto) Not Reported Absolute Nucleated RBC 0.03 10^3/uL H 10^3/uL (0-0.01) Immature Gran % Not Reported Seg Neutrophils % 66 % % Band Neutrophils % 19 % % Lymphocytes % 10 % % Monocytes % 5 % % Immature Gran # Not Reported Absolute Seg Neuts 20.94 10^/uL H 10^/uL (1.70-6.50) Absolute Band Neuts 6.03 10^3/uL H 10^3/uL (0.00-0.70) Absolute Lymphocytes 3.17 10^3/uL H 10^3/uL (1.00-3.00) Absolute Monocytes 1.59 10^3/uL H 10^3/uL (0.30-0.80) Platelet Estimate DECREASED L (ADEQ) Polychromasia 1+ H Tear Drop Cells 1+ H Oval Macrocytes 1+ H Smear Review By Pending PT 16.1 SEC H SEC (12.0-15.0) INR 1.27 H (0.83-1.16) APTT 30.8 SEC SEC (23.0-38.0) VBG Lactic Acid Sodium Potassium Chloride Carbon Dioxide Anion Gap BUN Creatinine Estimated GFR Glucose Calcium Total Bilirubin Conjugated Bilirubin Unconjugated Bilirubin AST ALT Alkaline Phosphatase Total Protein Albumin Medications Given: Levofloxacin/Dextrose (Levaquin 750 Mg (Premix)) 150 mls @ 100 mls/hr IV EDNOW ONE PRN Reason: Protocol Stop: 06/07/17 22:22 Last Admin: 06/07/17 21:00 Dose: 150 mls Discontinued Medications Sodium Chloride (Ns) 1,000 mls @ 0 mls/hr IV ONCE ONE; Wide Open PRN Reason: Protocol Stop: 06/07/17 18:36 Last Admin: 06/07/17 18:45 Dose: 1,000 mls Sodium Chloride (Ns) 1,000 mls @ 0 mls/hr IV EDNOW ONE; Wide Open PRN Reason: Protocol Stop: 06/07/17 19:59 Last Admin: 06/07/17 20:20 Dose: 1,000 mls Sodium Chloride (Ns) 2,600 mls @ 5,200 mls/hr 30 ml/kg infuse over 30 min ( 2600 ml) IV EDNOW ONE PRN Reason: Protocol Stop: 06/07/17 21:20 Last Admin: 06/07/17 20:40 Dose: 600 mls Departure - Departure Disposition: [facility] Inpatient Acute Clinical Impression: Pneumonia Qualifiers: Pneumonia type: due to unspecified organism Laterality: bilateral Lung location : lower lobe of lung Qualified Code(s): J18.1 - Lobar pneumonia, unspecified organism Pancreatic cancer Qualifiers: Pancreatic malignancy location: unspecified Qualified Code(s): C25.9 - Malignant neoplasm of pancreas, unspecified Condition: Fair
[2017-06-07 18:44] LABS: PLATELET COUNT 111 10^3/uL (150-400)
[2017-06-07 18:58] LABS: INR 1.27 (0.83-1.16); PROTIME(PATIENT) 16.1 SEC (12.0-15.0)
[2017-06-07] MEDS ORDERED: NS 2,600 ML IV ONE (20:51)
[2017-06-07] MEDS ORDERED: ACETAMINOPHEN 325 MG TAB PO PRN (23:26)
[2017-06-07] MEDS ORDERED: PROTOCOL CALCIUM 1 DOSE IV PRN (23:30)
[2017-06-07] MEDS ORDERED: PROTOCOL POTASSIUM 1 DOSE MISC PRN (23:30)
[2017-06-07] MEDS ORDERED: NS 1,000 ML IV SCH (23:30)
[2017-06-07] MEDS ORDERED: D50W 25 GM/50 ML VIAL IVP PRN (23:30)
--- NOTE | 2017-06-08 02:02 | GHP ---
[f rep st] HISTORY AND PHYSICAL DATE OF ADMISSION: 06/07/2017 CHIEF COMPLAINT: Generalized weakness and fall. HISTORY OF PRESENT ILLNESS: Very pleasant 67-year-old gentleman known to me from previous admission on 05/18/2017, who presents to the emergency department following a fall at home. Patient reports th at today, he has been feeling increasingly weak without any focal deficits. He was in the bathroom t gretchen and sustained a fall, falling forward, striking the top of his head in the bathroom. He denies any loss of consciousness. Denies any current headache, changes of vision or acute numbness, tinglin g, or focal deficits. The patient denies any neck pain. Patient did develop a single episode of mae sea and vomiting earlier in the day time. He denies any hematemesis. The patient does report chroni c ongoing loose stools without any melena or hematochezia. The patient's last treatment with chemoth erapy was on 05/28/2017. He reports he has had declining oral intake as foods just do not taste very good. He denies any fevers, cough, shortness of breath. He does endorse some chills today. Isidro sanchez does have chronic rhinorrhea of clear drainage when he is sitting upright, which stops when he is l j luis flat. He has no known sick contacts. REVIEW OF SYSTEMS: GENERAL: Patient reports chills as noted above. No fevers, no sweats. SKIN: Pablo bo reports that he has developed some potentially early blistering and has a chronic sore on his right lower leg. He reports his legs have been chronically edematous. Nothing acute. No calf pain. ENT: Patient denies any sore throat. Does have rhinorrhea as per HPI. EYES: Patient denies any acute changes in vision. He has had progressive decline in his vision last 6 months and does wear gl asses, but has not yet updated his prescription. CARDIOVASCULAR: Patient with chronic lower extremi ty edema. He denies any orthopnea. No chest pain or palpitations. RESPIRATORY: Patient denies any cough, shortness of breath. When further discussed, patient reports that he occasionally does have at baseline some dyspnea with exertion, but denies any acute changes from that. GI: Nausea, vomitin g episode x1 with loose stools as per HPI. Patient denies any abdominal pain. He denies any signifi cant abdominal distention or bloating. : No dysuria or hematuria. MUSCULOSKELETAL: Patient with chronic osteoarthritis, right shoulder. Left knee pain. No myalgias. NEURO: Patient denies any h eadache. He does have chronic numbness, tingling in the left 4th, 5th digit, which is unchanged. No other focal deficits or numbness, tingling. PSYCH: Patient denies. Remainder of review of systems negative except as noted above. ALLERGIES: Ketoconazole, niacinamide and coconut. HOME MEDICATIONS: As per EMR. Lantus listed as a scale up to 20 units daily; tramadol 50 mg p.o. at h.s.; Compazine 10 mg p.o. t.i.d. p.r.n.; potassium chloride 10 mEq p.o. b.i.d.; Protonix 40 mg p.o. daily; multivitamin 1 tab p.o. every other day starting Wednesday, including Wednesday; Ativan 0.5 mg p. o. at h.s.; Proctofoam 1 application per rectum daily p.r.n.; glucosamine 500 mg p.o. Wednesday, ay, Wednesday; Lasix 40 mg p.o. daily; allopurinol 100 mg p.o. b.i.d.; acetaminophen 500 mg p.o. b.i.d. PAST MEDICAL HISTORY: Significant for pancreatic cancer, diabetes type 2, hypertension, hyperlipidem ia, osteoarthritis, gout, skin cancer on his scalp, status post resection. PAST SURGICAL HISTORY: Significant for biliary stent placement, port placement, and scalp excision f or skin cancer. FAMILY HISTORY: Mother with history of breast cancer, living and at bedside. Father , histo ry of colon cancer. Cousins with history of diabetes type 2. SOCIAL HISTORY: Patient lives with his mother currently. He does not smoke, drink, or do drugs. CODE STATUS: Full. PHYSICAL EXAMINATION: VITAL SIGNS: Upon arrival to the emergency department, blood pressure 118/71, heart rate 110, respiratory rate 16, O2 saturation 94% on room air, temperature is 37.1. Current vi maine signs: Blood pressure 130/70, heart rate 88, respiratory rate 16, O2 sat is 92, decreased down t o 87% on room air, temperature 36.7. GENERAL: No acute distress. Pleasant, quite pale, chronically ill-appearing adult gentleman, appears older than stated age. Patient's mother is resting at bedsid e. HEENT: Head normocephalic atraumatic with abrasion to the central scalp. There is an apparent l aceration, it is small, superficial. There is no drainage or surrounding erythema or bleeding. Eyes : Extraocular muscles are intact. Pupils equal, round, react to light bilaterally and symmetric. N o scleral icterus or conjunctival injection. Conjunctivae are pale. ENT: Mucous membranes appear s lightly dry. No oropharyngeal erythema or exudates. Dentition intact. NECK: Supple. Trachea midl ine. CARDIOVASCULAR: Regular rate and rhythm. No murmurs, rubs, or gallops appreciated. RESPIRATO RY: Unlabored breathing. Lungs are clear to auscultation bilaterally except quite diminished at the bases, left greater than right. No crackles, wheezes, or rhonchi. ABDOMEN: Soft, nontender. No r ebound, guarding, or masses. Positive bowel sounds. : No suprapubic tenderness to palpation. No Bruce catheter in place. EXTREMITIES: Patient with 3+ pitting edema, bilateral lower extremities. Limited evaluation of pedal pulses secondary to edema. The patient also with 2+ pitting edema bilat eral distal upper extremities. Strength overall 4/5 strength, upper and lower extremities. Patient is able to turn independently in the bed, but does require a little bit of assistance sitting up. NE UROLOGIC: Grossly nonfocal. No facial drooping. Moves all extremities as per above. PSYCH: Patie nt awake, alert, and oriented x4. He is not agitated or anxious. Thought process, content and quest ions are all appropriate. LABORATORY STUDIES: WBC is 31.72, H and H 9.4 and 27.6, MCV 105.3, platelet count is 111, the patien t has bandemia with absolute bands 6, absolute segmented neutrophils 20.9, percentage is not reported . Multiple red blood cell abnormalities; see EMR. PT 16.1, INR is 1.27, PTT is 30.8. Initial lacti c acid 3.0, downtrending 2.5. Sodium is 138, potassium 3.4, chloride 107, CO2 is 20, anion gap 11, B UN is 10, creatinine is 1.5, GFR 46, glucose 178, calcium 7.6, total bilirubin 0.5, conjugated 0.5, A LT is 52, AST is 81, alkaline phosphatase 652, total protein 4.4, albumin is 2.1. UA: Specific grav ity of 1.014 with a pH of 5.0, otherwise negative. Blood cultures x2 are pending. IMAGING: CT head: Image report reviewed myself, negative for intracranial hemorrhage, fracture, hem atoma. There is a right scalp laceration noted, as per exam. Chest x-ray, image report reviewed myself, significant for bilateral lower lobe pneumonia, left great er than right with a small left pleural effusion. Abdominal ultrasound showing hepatic steatosis, gallbladder sludge without calculi, common bile duct stent, air in the gallbladder. No left hydronephrosis. Non visualization of the right kidney. Bila teral pleural effusions. Small amount of diffuse ascites. ASSESSMENT AND PLAN: A very pleasant 67-year-old gentleman with past medical history significant for pancreatic cancer, undergoing chemotherapy, who presents to the emergency department today with comp laints of generalized weakness and fall with head injury. 1. Pneumonia, bilateral. The patient has been started on Levaquin for antibiotic coverage. No prev ious known risk factors for methicillin-resistant Staphylococcus aureus. At this time, patient repor ts feeling a little bit better. He has received intravenous fluids. His lactate will be monitored. The patient does meet severe sepsis criteria with elevated lactate and acute kidney injury with a cr eatinine 1.5, baseline appears to be 1.1. We will trend lactic acid which has improved slightly. Mo nitor until less than 2. Blood cultures x2 have been ordered. The patient's blood pressures and men tation are appropriate at this time. In addition, patient with immunocompromised status, given his r ecent chemotherapy treatment on 05/28/2017. 2. Hypoxia without acute distress. The patient requiring just a little bit of supplemental oxygen. He also has noted bilateral pleural effusions, which is likely related to patient's hypoalbuminemia, chronic illness and pancreatic cancer. We will monitor closely, given the patient will receive vinay tional intravenous fluids. We will try to titrate down off oxygen tomorrow and monitor on room air. 3. Fall with head injury. CT scan unremarkable except for scalp laceration, for which patient does not require any suturing at this time. Supportive care. Will ask Wound Care to evaluate, as well as his bilateral lower extremities. 4. Diffuse edema and ascites, likely related to patient's chronic medical state, hypoalbuminemia, an d pancreatic cancer. Monitor fluid status closely. Consider diuresis once his lactic acidosis has r esolved. Will elevate his lower extremities. 5. Pancreatic cancer. Will consult Oncology service. 6. Hypoalbuminemia. Again, likely related to chronic illness, chronic nutritional deficiencies. Ector you does admit that he has a limited diet. Will consult Dietary for additional recommendations. 7. Anemia of chronic disease and related to chemotherapy. 8. Thrombocytopenia, chronic, likely multifactorial including pancreatic cancer, hepatic steatosis a nd chemotherapy. We will continue to monitor. Hold off on anticoagulation at this time secondary to low platelet count. 9. Coagulopathy related to patient's liver involvement and chemotherapy. 10. Hypokalemia. Replacement protocol ordered. Will monitor magnesium in addition. 11. Acute kidney injury. Intravenous fluids and repeat in the morning. 12. Diabetes type 2, controlled. We will clarify with patient his Lantus dosing. Has not significa ntly elevated, so will put him on a normal sliding scale and a low sliding scale at bedtime. 13. Transaminitis related to patient's steatosis and cancer. 14. Fluid, electrolytes, nutrition. Some gentle intravenous fluid hydration to continue until the p atient's lactate is normalized. He also appears slightly dry, although he is 3rd spacing. Will need to monitor closely. Anticipate he will need some diuresis before discharge. Electrolyte monitoring , replacement as above. Diet as tolerated. 15. Prophylaxis. Sequential compression devices only if tolerated. The patient does have significa nt amount of edema. 16. Code status is full. 17. Disposition: Patient admitted to inpatient status on the medical floor at this time. Anticipat e that he will require greater than 2 midnights' stay, given severity of pneumonia and his severe sep sis status while undergoing chemotherapy. /[id number]/MODL
[2017-06-08 04:53] LABS: PLATELET COUNT 79 10^3/uL (150-400)
[2017-06-08 05:01] LABS: INR 1.34 (0.83-1.16); PROTIME(PATIENT) 16.8 SEC (12.0-15.0)
[2017-06-08] MEDS ORDERED: POTASSIUM CL 10 MEQ TAB PO ONE (07:45)
--- NOTE | 2017-06-08 08:02 | PDMN ---
Medical Necessity Medical necessity: est los>2mn for bilateral PNA, severe sepsis, hypoxia, hypokalemia, MONIKA, and fall with scalp laceration; admit for IV abx, follow cx' s and lactic acid, onc consult, and wound care; comorbid pancreatic cancer w/ recent chemo, immunocompromised status, diffuse edema and ascites, DM, anemia and coagulopathy; per order and H&P 06/07/17
[2017-06-08] MEDS ORDERED: MAGNESIUM SULF 2 GM/WATER 50 ML IV ONE (08:33)
[2017-06-08] MEDS ORDERED: K PHOS 15 MMOL in D5W 250 ML IV ONE (08:34)
[2017-06-08] MEDS ORDERED: Herbals/Supplements -Info Only PO SCH (09:00)
[2017-06-08] MEDS ORDERED: PROCTOFOAM HC 10 GM CAN PR PRN (09:00)
[2017-06-08] MEDS: ONDANSETRON 4 MG/2 ML VIAL IVP PRN ×2 (09:17→15:03)
[2017-06-08] MEDS: INSULIN LISPRO 100 UNIT/ML SC SCH ×4 (09:18→22:05)
[2017-06-08] MEDS: ALLOPURINOL 100 MG TAB PO SCH ×2 (09:22→22:06)
[2017-06-08] MEDS: PANTOPRAZOLE SODIUM 40 MG TAB PO SCH (09:22)
[2017-06-08] MEDS: POTASSIUM CL 10 MEQ TAB PO SCH ×2 (09:23→22:06)
--- NOTE | 2017-06-08 15:40 | GHP ---
[f rep st] HISTORY AND PHYSICAL DATE OF ADMISSION: 06/07/2017 HISTORY OF PRESENT ILLNESS: The patient is a 67-year-old gentleman followed by my partner, Dr. Carlton boyd. He was diagnosed with a T4 N1 M0 (stage III) adenocarcinoma involving the body of the pancreas in December 2016. He began neoadjuvant Folfirinox chemotherapy in December 2016. The patient has r eceived a total of 8 cycles of neoadjuvant Folfirinox therapy, the most recent completed on May 28, 2017. The patient has required the placement of a biliary stent due to his disease. The patient was recently hospitalized for sepsis that was felt to be related to his biliary stent. The patient was brought to the emergency room last evening after having a fall at home. He was going to the bathroom and fell forward, hitting the top of his head on a door. A CT showed no acute proce ss or injury. He was weak and fatigued and was admitted for further management. An x-ray done in ER suggested a pneumonia, and he was started on antibiotic therapy. He is scheduled to have a [facility] t CT scan performed later today. When seen this afternoon, he is accompanied by his mother. PAST MEDICAL HISTORY: 1. Pancreatic adenocarcinoma as outlined above. 2. Type 2 diabetes. 3. Osteoarthritis. 4. Gout. 5. History of nephrolithiasis. 6. Hypertension. 7. Hypercholesterolemia. PAST SURGICAL HISTORY: 1. Mohs surgery for basal cell carcinoma in 2013. 2. [place] tooth extraction. SOCIAL HISTORY: The patient lives locally. 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 He uses alcohol rarely. REVIEW OF SYSTEMS: As outlined above. Additionally, denies chest pain and cough. Denies recent fev er. Reports intermittent diarrhea. Denies abdominal pain and nausea. Denies extremity pain. Denie s headache and visual change. PHYSICAL EXAMINATION: GENERAL: Pleasant elderly gentleman sitting in a chair. He is in no acute dis tress. HEENT: There is a small abrasion over his forehead on the right side. Pupils are equal. Sc lerae nonicteric. HEART: Regular without murmur. LUNGS: Sounds decreased at the left base. No wh eeze or rhonchi. ABDOMEN: Soft, nontender, nondistended. There is specifically no right upper quad rant tenderness, guarding, or rebound. Patient has bilateral pedal edema. He is alert, oriented, an d appropriate. DIAGNOSTICS: Chest x-ray findings as outlined above. White count 21,700, hemoglobin 7.6, platelet count 79,000. Sodium 142, potassium 2.8, chloride 116, bicarb 24, BUN 9, creatinine 1.2. Bilirubin is 0.4, AST 60, ALT 48, alk phos 472. Abdominal ultrasound reveals hepatic steatosis and gallbladder sludge. IMPRESSION: 1. Stage III pancreatic adenocarcinoma (patient currently receiving neoadjuvant Folfirinox chemother apy, most recently given 05/28/2017). 2. Pneumonia. 3. Fall at home. 4. Hyperleukocytosis, likely secondary to #2. 5. Chemotherapy-induced anemia. 6. Hypokalemia, likely secondary to diarrhea. The patient is a 67-year-old gentleman who is currently receiving neoadjuvant Folfirinox chemotherapy for a stage III pancreatic cancer. He appears to have developed a pneumonia as manifested by his chest x-ray findings, physical exam fin dings, and hyperleukocytosis. I agree with antibiotic therapy. A CT of the chest is being done to b chandan define the process. I believe his anemia is related to recent chemotherapy. I would have a low threshold to give him a p acked red cell transfusion if this was to worsen during his hospital stay. His potassium is being repleted with a potassium replacement protocol. I will notify Dr. Poe of his admission. He was due to receive his 9th cycle of Folfirinox chemothe rapy on Wednesday of this week; this will likely need to be delayed. Our service will continue to follow him during this hospital stay. The patient's questions were answered. His case was discussed with Dr. Joyce of the hospitalists service, as well as nursing. Total time for today's visit was approximately 45 minutes, of which greater than 50% was spent in cou nseling and care coordination. /[id number]/MODL
--- NOTE | 2017-06-08 16:08 | ASMTCMCOM ---
CM Note CM Note Notes: Pt admitted after fall at home, cxr indicative of PNA, hx of pancreatic adenocarcinoma- currently undergoing treatment. Pt lives at home w/mother who is in her 90's. Pt followed by Duncan Walden from here and discussed dc plan. She felt pt would likely refuse SNF. OT recommending SNF vs HHC, awaiting PT's rec. Pt will likely need HHC at the very least. Date Signed: 06/08/2017 04:08 PM Electronically Signed By:Micki Gordon RN
--- NOTE | 2017-06-08 17:23 | HOSPPROG ---
Hospitalist Progress Note Assessment/Plan: Prolonged service, direct patient care, [id number] with patient and mother, in addition to the original history and physical by Dr. Amanda Brooks for 30 min , from 1:30 p.m. Until 2:00 p.m., addressing the following: -on further discussion with patient, he did not appear to have pulmonary symptoms prior to arrival, and his diagnosis of pneumonia is somewhat in question -he has bilateral effusions on chest x-ray, will get CT without contrast of the chest to further define whether he has a focal consolidation and warrants ongoing treatment for pneumonia -physical exam reveals inspiratory crackles but clear in the bilateral bases, heart rhythm is regular with load 1/6 systolic murmur at the apex, trace bilateral lower extremity edema, abdomen is soft nontender nondistended and bowel sounds are present, he is alert awake oriented x3, has an abrasion on the scalp without any surrounding erythema -he did receive a dose of Neulasta prior to arrival, and this may account for his significant leukocytosis, currently down trending which could either be secondary to antibiotics or from the natural course of Neulasta -after IV fluids, his acute kidney injury is improving, current creatinine is 1.2, receiving some potassium supplementation with ongoing IV fluids -I suspect that the primary etiology of the patient's acute metabolic acidosis was secondary to GI losses with nausea and vomiting, and his lactic acid level has stabilized at 1.2 and his abdominal symptoms have abated -his abdominal ultrasound demonstrates hepatic steatosis, biliary sludge, and his abdominal exam is currently benign, further abdominal imaging is not warranted -will continue to engage the patient with physical and occupational therapy, to determine whether he is safe to return home with his mother tomorrow in the setting of his recent weakness and fall Objective: Vital Signs Temp Pulse Resp BP Pulse Ox 36.3 C 83 16 124/60 H 96 06/08/17 16:20 06/08/17 16:20 06/08/17 16:20 06/08/17 16:20 06/08/17 16:20 Laboratory Results 06/08/17 04:28 06/08/17 16:00 06/07/17 06/08/17 06/09/17 05:59 05:59 05:59 Intake Total 2975 Balance 2975 PT 16.8 SEC (12.0-15.0) H 06/08/17 Unknown INR 1.34 (0.83-1.16) H 06/08/17 Unknown ICD10 Worksheet Patient Problems: Problems Problem Status Onset chronic disease mgmt/transitional care Acute Hyperglycemia due to type 2 diabetes mellitus Acute Acute renal failure Acute Pancreatic cancer Acute Nausea & vomiting Acute Septic shock Acute Pneumonia Acute
[2017-06-08] MEDS: PROCHLORPERAZINE MALEATE 10 MG TAB PO PRN (18:56)
[2017-06-08] MEDS: traMADol 50 MG TAB PO SCH (22:06)
[2017-06-08] MEDS: MULTIVITAMINS 1 EACH TAB PO SCH (22:06)
[2017-06-08] MEDS: LORazepam 0.5 MG TAB PO SCH (22:06)
[2017-06-09] MEDS: POTASSIUM Cl (KCl) 40 MEQ in NS 1,000 ML IV SCH ×2 (05:55→06:07)
[2017-06-09 06:28] LABS: PLATELET COUNT 85 10^3/uL (150-400)
[2017-06-09] MEDS: INSULIN LISPRO 100 UNIT/ML SC SCH ×4 (07:32→22:01)
[2017-06-09] MEDS: POTASSIUM CL 10 MEQ TAB PO SCH ×2 (08:34→21:59)
[2017-06-09] MEDS: PANTOPRAZOLE SODIUM 40 MG TAB PO SCH (08:34)
[2017-06-09] MEDS: PROCHLORPERAZINE MALEATE 10 MG TAB PO PRN ×2 (08:34→16:31)
[2017-06-09] MEDS: ALLOPURINOL 100 MG TAB PO SCH ×2 (08:34→22:00)
[2017-06-09] MEDS: FUROSEMIDE 20 MG/2 ML VIAL IVP SCH ×2 (10:32→15:26)
--- NOTE | 2017-06-09 11:40 | SOAPPROG ---
SOAP Progress Note Assessment/Plan: Assessment: 1) Stage III pancreatic cancer currently receiving FOLFIRINOX (most recent cycle given 05/28/17) 2) Large Bilateral pleural effusions 3) Chemotherapy induced anemia and thrombocytopenia Plan: Larry's CT does not show an obvious pneumonia. He does have fairly large bilateral pleural effusions which were not present on a CT done March 2017. Case d/w Dr. Joyce. I favor a diagnostic / therapuetic thoracentesis today. Patient consents to do this. Fluid should be sent for cytology, as well as gram stain and culture. I think it is reasonable to continue ABX until results of thoracentesis are known. Plan d/w patient and his mother. Their questions were answered. Will consider transfusion if anemia worsens 06/09/17 11:41 06/09/17 11:42 Subjective: Remains fatigued. Denies dyspnea at rest, but does require oxygen. Objective: Vital Signs Temp Pulse Resp BP Pulse Ox 36.5 C 92 18 113/59 L 97 06/09/17 11:13 06/09/17 11:13 06/09/17 11:13 06/09/17 11:13 06/09/17 11:13 Laboratory Results 06/09/17 06:00 06/09/17 06:00 06/08/17 06/09/17 06/10/17 05:59 05:59 05:59 Intake Total 2975 1913 440 Balance 2975 1913 440 PT 16.8 SEC (12.0-15.0) H 06/08/17 Unknown INR 1.34 (0.83-1.16) H 06/08/17 Unknown - Time Spent With Patient Time Spent With Patient: 25 minutes Physical Exam - Physical Exam General Appearance: alert, no apparent distress EENT: PERRL/EOMI Respiratory: other (Decreased both bases / L > R.) Cardiac/Chest: regular rate, rhythm Abdomen: non-tender, soft Extremities: other (Bilateral LE edema without calf tenderness) Neuro/Psych: alert, normal mood/affect ICD10 Worksheet Patient Problems: Problems Problem Status Onset Pancreatic cancer Acute Pneumonia Acute chronic disease mgmt/transitional care Acute Acute renal failure Acute Hyperglycemia due to type 2 diabetes mellitus Acute Nausea & vomiting Acute Septic shock Acute
--- NOTE | 2017-06-09 12:52 | ECHO ---
[email or web address] [address] Main: [phone] Fax: [email or web address] Echocardiogram Name: GAURI KINCAID MR#: [id number] Study Date: 06/09/2017 Study Time: 10:04 AM Date of : 1950 Age: 67 year(s) Height: 167.6 cm (66 in.) Weight: 92.53 kg (204 lb.) BSA: 2.02 m2 Gender: Male Examination: Echo Indication: PLEURAL EFFUSIONS Image Quality: Adequate Contrast: Requested by: Anson Joyce BP: / Heart Rate: Rhythm: Indication: PLEURAL EFFUSIONS Procedure Staff Test Rack Operator: Fernanda Nam [facility] Reading Physician: Anson Whyte MD Requesting Provider: Conclusions: Normal size left ventricle. No LV hypertrophy. Normal global systolic LV function. The ejection fraction is visually estimated to be 60 %. Grade 1 diastolic dysfunction (abnormal relaxation). Normal RV function. The mitral valve is normal in appearance and function. Trivial mitral valve regurgitation. The aortic valve is normal in appearance and function. Trivial tricuspid valve regurgitation. Normal size ascending aorta measuring 3.0 cm. Left side pleural effusion. Measurements: Chambers Valvular Assessment AV/MV Valvular Assessment TV/PV Normal Normal Normal Name Value Range Name Value Range Name Value Range Ao Jeanna (2D): 3.0 cm (1.4 cm-2.6 AV Vmax: 1.74 m/s (1 m/s-1.7 PV Vmax: 0.91 m/s (0.6 m/s-0.9 cm) m/s) m/s) IVSd (2D): 0.9 cm (0.6 cm-1.1 AV maxP mmHg ( - ) PV PGmax: 3 mmHg ( - ) cm) AV meanP mmHg ( - ) LVDd (2D): 4.6 cm (4.2 cm-5.9 LVOT Vmax: 1.51 m/s (0.7 m/s-1.1 cm) m/s) LVDs (2D): 2.7 cm (2.1 cm-4 MARK (Vmax): 2.7 cm2 ( - ) cm) MARK (VTI): 2.3 cm ( - ) LVPWd (2D): 1.0 cm (0.6 cm-1 MV E Vmax: 0.70 m/s ( - ) cm) MV A Vmax: 0.85 m/s ( - ) LVOTd 2.0 cm 2.0 cm mm MV E/A: 0.82 ( - ) LVEF (BP): 66 % (>=55 %) MV PHT: 0.062 s ( - ) Visual EF: 60 % MVA (PHT): 3.5 s ( - ) Patient: GAURI KINCAID Study Date: 06/09/2017 Page 1 of 2 10:04 AM RVDd(2D): 2.1 cm (1.9 cm-3.8 cmmm) Continued Measurements: Chambers Valvular Assessment AV/MV Valvular Assessment TV/PV Name Value Name Value Name Value LADs: 3.3 cm MV DecTime: 201 m/s CVP (est.): 5 mmHg LADs Lon.0 cm MV E/E' Septal: 14.00 LA Area: 14.4 cm2 MV E/E' Lateral: 9.50 LA Volume: 42 ml LA Volume Index: 20.8 ml/m2 RA Area: 11.0 cm2 Additional Vessels Name Value Ao Ascendin.0 cm Findings: Left Ventricle: Normal size left ventricle. No LV hypertrophy. Normal global systolic LV function. The ejection fraction is visually estimated to be 60 %. No regional wall motion abnormality. Grade 1 diastolic dysfunction (abnormal relaxation). Right Ventricle: Normal size right ventricle. Normal RV function. Left Atrium: The left atrium is normal in size. Right Atrium: The right atrium is normal in size. Mitral Valve: The mitral valve is normal in appearance and function. Trivial mitral valve regurgitation. No mitral stenosis is present. Aortic Valve: The aortic valve is normal in appearance and function. There is no aortic valve regurgitation. No aortic valve stenosis is present. Tricuspid Valve: The tricuspid valve is normal in appearance and function. Trivial tricuspid valve regurgitation. Pulmonic Valve: The pulmonic valve is normal in appearance and function. There is no pulmonic regurgitation seen. Aorta: The aorta is normal. Normal size aortic root measuring 3.0 cm. Normal size ascending aorta measuring 3.0 cm. Pericardium: No pericardial effusion. Left side pleural effusion. (No Signature Object) Patient: GAURI KINCAID Study Date: 06/09/2017 Page 2 of 2 10:04 AM [id number]
[2017-06-09] MEDS ORDERED: LIDOCAINE 1% 300 MG/30 ML SDV ONE (13:15)
--- NOTE | 2017-06-09 17:53 | HOSPPROG ---
Hospitalist Progress Note Assessment/Plan: Assessment: 67-year-old male presents with acute mechanical fall in the setting of generalized weakness secondary to acute hypovolemia and resultant metabolic acidosis in the setting of stage III pancreatic cancer and new diagnosis acute pleural effusions Plan: 1. Fall. Acute, mechanical, resulting in a scalp abrasion, no intracranial hemorrhage, remains high fall risk, continues to work with physical and occupational therapy and will likely require home care services at discharge 2. Acute metabolic acidosis. Secondary to lactic acid, most likely secondary to hypovolemia experienced after acute nausea and vomiting, status post IV fluids and resolved, no evidence of overt infection with no pneumonia noted on chest CT (personally interpreted) 3. Pleural effusions. Acute, new problem this provider, further workup indicated. Bilateral on chest imaging, worsening in the setting of IV fluids received for treatment of his metabolic acidosis, suspect that these are secondary to poor oncotic pressure from malnutrition and malignancy although underlying metastatic malignancy is certainly possible and these effusions were not present on most recent outpatient CT staging -echocardiogram demonstrating ejection fraction 60%, diastolic dysfunction, normal right ventricle -discussed with Dr. Daniele Posey, we both agreed that diagnostic evaluation with thoracentesis is indicated and may also provide some therapeutic relief -patient's effusions are transudative by light's criteria -1.1 L removed -monitor for symptomatic improvement -continue on supplemental oxygen, suspect patient will require supplemental oxygen at time of discharge -remain off of antibiotics, I do not believe the patient has pneumonia and his leukocytosis on presentation was most likely secondary to Neulasta injection prior to arrival -will go of low-dose diuretics to encounter balance the IV fluids received initially on presentation to stabilize his metabolic acidosis -monitor strict I&Os, daily weights 4. Stage III pancreatic cancer. Status post FOLFIRINOX, most recent dosage 05/28 -ongoing consultation by Dr. Posey 5. Pancytopenia secondary to chemotherapy. Hold on blood transfusion, continue to monitor CBC, patient is leukocytosis secondary to Neulasta dosage 6. Acute atelectasis. Secondary to effusions, continue on incentive spirometer 7. Suspected severe protein calorie malnutrition. Evidenced by serum albumin level 1.6, soft tissue edema and proximal muscle wasting -get dietary consultation, check pre-albumin level -placed on dietary supplement, check vitamin-D level Diet. Regular Prophylaxis. High risk patient, heparin subcu Code. Full per patient, his mother is MD CARTER Disposition. Anticipated discharge is 06/10, pending stabilization of conditions outlined above. Subjective: Patient reports mild back pain at the thoracentesis site Objective: Vital Signs Temp Pulse Resp BP Pulse Ox 36.4 C 78 16 127/58 H 95 06/09/17 15:20 06/09/17 15:20 06/09/17 16:31 06/09/17 15:20 06/09/17 16:31 Laboratory Results 06/09/17 06:00 06/09/17 06:00 06/08/17 06/09/17 06/10/17 05:59 05:59 05:59 Intake Total 2975 1913 440 Output Total 1100 Balance 2975 1913 -660 PT 16.8 SEC (12.0-15.0) H 06/08/17 Unknown INR 1.34 (0.83-1.16) H 06/08/17 Unknown - Physical Exam Constitutional: no apparent distress, not in pain, chronically ill appearing, uncomfortable Cardiovascular: systolic murmur (1/6 at all valve location), edema (Soft tissue diffusely throughout), No irregularly irregular, No tachycardia Respiratory: reduced air movement (Left base to mid posterior segment), inspiratory crackles (Left upper posterior segment), No expiratory wheeze, No bronchial breath sounds, No respiratory distress Gastrointestinal: normoactive bowel sounds, soft, non-tender abdomen, no palpable masses, No distension Skin: No erythema (Around the thoracentesis site) Neurologic: AAOx3, sensation intact bilaterally, No weakness Psychiatric: not anxious, not encephalopathic, flat affect, No agitated ICD10 Worksheet Patient Problems: Problems Problem Status Onset chronic disease mgmt/transitional care Acute Hyperglycemia due to type 2 diabetes mellitus Acute Acute renal failure Acute Pancreatic cancer Acute Nausea & vomiting Acute Septic shock Acute Pneumonia Acute
[2017-06-09] MEDS: MULTIVITAMINS 1 EACH TAB PO SCH (21:59)
[2017-06-09] MEDS: GLUCOSAMINE SULF 500 MG CAP PO SCH (22:00)
[2017-06-09] MEDS: traMADol 50 MG TAB PO SCH (22:00)
[2017-06-09] MEDS: HEPARIN 5,000 UNIT/0.5 ML SYR SC SCH (22:01)
[2017-06-09] MEDS: LORazepam 0.5 MG TAB PO SCH (22:01)
[2017-06-10 04:00] LABS: PLATELET COUNT 89 10^3/uL (150-400)
[2017-06-10] MEDS: HEPARIN 5,000 UNIT/0.5 ML SYR SC SCH (06:16)
[2017-06-10] MEDS: PANTOPRAZOLE SODIUM 40 MG TAB PO SCH (08:13)
[2017-06-10] MEDS: POTASSIUM CL 10 MEQ TAB PO SCH (08:13)
[2017-06-10] MEDS: ALLOPURINOL 100 MG TAB PO SCH ×2 (08:13→21:14)
[2017-06-10] MEDS: FUROSEMIDE 20 MG/2 ML VIAL IVP SCH ×2 (08:14→15:38)
[2017-06-10] MEDS: INSULIN LISPRO 100 UNIT/ML SC SCH ×4 (08:21→21:16)
[2017-06-10] MEDS ORDERED: PROTOCOL POTASSIUM 1 DOSE MISC PRN (10:36)
[2017-06-10] MEDS ORDERED: FUROSEMIDE 20 MG/2 ML VIAL IVP SCH (11:01)
--- NOTE | 2017-06-10 11:05 | HOSPPROG ---
Hospitalist Progress Note Assessment/Plan: * Anasarca - massive volume overload - due to hypoalbuminemia -IV Lasix + IV albumin * Large pleural effusions - transudative -diuresis as above * Pancreatic cancer - stage III - s/p chemo -s/p biliary stent * Scalp abrasion due to fall * Leukocytosis -likely due to recent Neulasta * Severe protein calorie malnutrition -d/w mother - increased protein and decreased sodium needed in diet * DM II -glucose okay - holding lantus Subjective: Very weak, too weak to go home. Dry weight about 180 pounds, now about 205. Poor appetite because doesn't taste right, mostly just eating canned soup at home. Objective: Vital Signs Temp Pulse Resp BP Pulse Ox 36.6 C 82 18 117/61 94 06/10/17 07:54 06/10/17 07:54 06/10/17 07:54 06/10/17 07:54 06/10/17 07:54 Microbiology 06/09/17 11:23 Gram Stain - Final Thoracic Fluid - Aspirate Laboratory Results 06/10/17 03:43 06/10/17 03:43 06/09/17 06/10/17 06/11/17 05:59 05:59 05:59 Intake Total 1913 980 Output Total 1101 Balance 1913 -121 PT 16.8 SEC (12.0-15.0) H 06/08/17 Unknown INR 1.34 (0.83-1.16) H 06/08/17 Unknown CXR viewed, my personal interpretation is- moderate pleural effusion, no PNA ABD US - fatty liver - biliary stent in place - Physical Exam Constitutional: no apparent distress, appears nourished, not in pain Cardiovascular: regular rate and rhythym, edema (3+) Respiratory: no respiratory distress, no rales or rhonchi, clear to auscultation Gastrointestinal: normoactive bowel sounds, soft, non-tender abdomen, no palpable masses Skin: erythema, other (LE venous stasis changes with early blister formation - no skin breakdown yet), No mottled, No fluctuance Neurologic: AAOx3, sensation intact bilaterally Psychiatric: interacting appropriately, not anxious, not encephalopathic, thought process linear ICD10 Worksheet Patient Problems: Problems Problem Status Onset Pancreatic cancer Acute Pneumonia Acute chronic disease mgmt/transitional care Acute Acute renal failure Acute Hyperglycemia due to type 2 diabetes mellitus Acute Nausea & vomiting Acute Septic shock Acute
[2017-06-10] MEDS ORDERED: FUROSEMIDE 20 MG/2 ML VIAL IVP ONE (11:15)
--- NOTE | 2017-06-10 13:38 | SOAPPROG ---
SOAP Progress Note Assessment/Plan: Assessment: 1) Stage III pancreatic cancer currently receiving FOLFIRINOX (most recent cycle given 05/28/17) 2) Large Bilateral pleural effusions 3) Chemotherapy induced anemia and thrombocytopenia 4) Anasarca 5) Diarrhea Plan: Larry's CT does not show an obvious pneumonia. He has fairly large bilateral pleural effusions which were not present on a CT done March 2017. He had a 1100 cc of pleural fluid removed from Right pleural space yesterday. Gram stain negative for bacteria. Pleural cytology pending. ABX have been stopped. He has anasarca. I think a PRBC transfusion is indicated at this point. His anemia is symptomatic. Risks/Benefits reviewed. He consents to transfusion. I will give him 2 units of PRBC's today. I suspect that his diarrhea may be due to bowel wall edema from anasarca. Stool has been sent for C. Diff testing. Not ready for hospital discharge. Case d/w Dr. Calix. 06/10/17 13:43 Subjective: Feels weak and fatigued. Having persistent watery diarrhea. Had Right thoracentesis yesterday. Objective: Vital Signs Temp Pulse Resp BP Pulse Ox 36.3 C 80 16 121/61 H 100 06/10/17 12:36 06/10/17 12:36 06/10/17 12:36 06/10/17 12:36 06/10/17 12:36 Microbiology 06/09/17 11:23 Gram Stain - Final Thoracic Fluid - Aspirate Laboratory Results 06/10/17 03:43 06/10/17 03:43 06/09/17 06/10/17 06/11/17 05:59 05:59 05:59 Intake Total 1913 980 Output Total 1101 350 Balance 1913 -121 -350 PT 16.8 SEC (12.0-15.0) H 06/08/17 Unknown INR 1.34 (0.83-1.16) H 06/08/17 Unknown - Time Spent With Patient Time Spent With Patient: 25 minutes Physical Exam - Physical Exam General Appearance: alert EENT: PERRL/EOMI Respiratory: other (Decreased Left base) Cardiac/Chest: regular rate, rhythm Abdomen: non-tender, soft Extremities: other (3 plus pitting edema bilateral LE) Neuro/Psych: alert, normal mood/affect ICD10 Worksheet Patient Problems: Problems Problem Status Onset Pancreatic cancer Acute Pneumonia Acute chronic disease mgmt/transitional care Acute Acute renal failure Acute Hyperglycemia due to type 2 diabetes mellitus Acute Nausea & vomiting Acute Septic shock Acute
[2017-06-10] MEDS: ALBUMIN 25% 100 ML IV SCH (14:32)
--- NOTE | 2017-06-10 16:29 | ASMTCMCOM ---
CM Note CM Note Notes: DC plan is SNF vs HC. Pt sleeping all day. Spoke with pt's mother who helps care for him. She stated that pt's brother is arriving this PM from [place]. She wants to discuss with pt's brother to both see if he can help care for pt and also to decide if SNF vs HC is best. Pt has fallen at home and is weak but may improve before DC. CM to follow. Date Signed: 06/10/2017 04:29 PM Electronically Signed By:Fatmata Aguiar LCSW
[2017-06-10] MEDS: traMADol 50 MG TAB PO SCH (21:14)
[2017-06-10] MEDS: LORazepam 0.5 MG TAB PO SCH (21:14)
[2017-06-11 06:50] LABS: PLATELET COUNT 72 10^3/uL (150-400)
[2017-06-11] MEDS: INSULIN LISPRO 100 UNIT/ML SC SCH ×4 (08:33→22:13)
[2017-06-11] MEDS: ALBUMIN 25% 100 ML IV SCH ×2 (08:42→14:21)
[2017-06-11] MEDS: PANTOPRAZOLE SODIUM 40 MG TAB PO SCH (08:47)
[2017-06-11] MEDS: ALLOPURINOL 100 MG TAB PO SCH ×2 (08:47→20:47)
[2017-06-11] MEDS ORDERED: PROTOCOL MAGNESIUM 1 DOSE IV PRN (09:41)
[2017-06-11] MEDS: FUROSEMIDE 20 MG/2 ML VIAL IVP SCH ×2 (10:13→16:39)
[2017-06-11] MEDS: ENOXAPARIN 40 MG/0.4 ML SYR SC SCH (11:27)
--- NOTE | 2017-06-11 12:04 | SOAPPROG ---
SOAP Progress Note Assessment/Plan: Assessment/Plan: 67 yo gentleman w stage III locally advanced pancreatic ca most recently neoadjuvant FOLFIRINOX who p/w weakness/fatigue, thrombocytopenia and anemia 1. weakness and fatigue - chemo related/electrolyte abnormalities/dehydration deconditioned likely need SNF prior to d/c? consider changing FOLFIRNOX given drop in PS Outpt imaging to assess response 2. anemia/thrombocytopenia - s/p 2U PRBCs 06/10 no tx requirements today 3. large pleural effusions and anasarca - likely due to hypoalbuminemia thoracentesis 06/09 looks transudative micro so far negative cytology pending SOB improved today improve protein intake 4. Pancreatic ca - ?responding but therapy has been too toxic lately needs [id number] of abdomen as outpt s/p C8 FOLFIRINOX 05/28/17 06/11/17 12:05 Subjective: No acute events 2U PRBCs yesterday decreased SOB Objective: Vital Signs Temp Pulse Resp BP Pulse Ox 36.6 C 68 17 120/66 94 06/11/17 08:38 06/11/17 08:38 06/11/17 08:38 06/11/17 08:38 06/11/17 08:38 Microbiology 06/09/17 11:23 Gram Stain - Final Thoracic Fluid - Aspirate 06/10/17 13:20 Gastrointestinal Tract Panel (PCR) - Final Stool No Organism Detected Laboratory Results 06/11/17 06:30 06/11/17 06:30 06/10/17 06/11/17 06/12/17 05:59 05:59 05:59 Intake Total 980 500 Output Total 1101 350 Balance -121 150 PT 16.8 SEC (12.0-15.0) H 06/08/17 Unknown INR 1.34 (0.83-1.16) H 06/08/17 Unknown Gen - NAD, chronically ill HEENT - anicteric CV - RRR Chest - decreased BS atLLL Abd - soft Ext - 3+ edema ICD10 Worksheet Patient Problems: Problems Problem Status Onset Pancreatic cancer Acute Pneumonia Acute chronic disease mgmt/transitional care Acute Acute renal failure Acute Hyperglycemia due to type 2 diabetes mellitus Acute Nausea & vomiting Acute Septic shock Acute
[2017-06-11] MEDS ORDERED: MAGNESIUM SULF 2 GM/WATER 50 ML IV ONE (12:19)
--- NOTE | 2017-06-11 16:21 | HOSPPROG ---
Hospitalist Progress Note Assessment/Plan: * Anasarca - massive volume overload - due to hypoalbuminemia -IV Lasix + IV albumin * Large pleural effusions - transudative -diuresis as above * Pancreatic cancer - stage III - s/p chemo -s/p biliary stent * Scalp abrasion due to fall * Leukocytosis -likely due to recent Neulasta * Severe protein calorie malnutrition -d/w mother - increased protein and decreased sodium needed in diet * DM II -glucose okay - holding lantus Subjective: Not urinating as much as would be expected Objective: Vital Signs Temp Pulse Resp BP Pulse Ox 36.3 C 75 17 141/72 H 97 06/11/17 15:54 06/11/17 15:54 06/11/17 15:54 06/11/17 15:54 06/11/17 15:54 Microbiology 06/09/17 11:23 Gram Stain - Final Thoracic Fluid - Aspirate 06/10/17 13:20 Gastrointestinal Tract Panel (PCR) - Final Stool No Organism Detected Laboratory Results 06/11/17 06:30 06/11/17 06:30 06/10/17 06/11/17 06/12/17 05:59 05:59 05:59 Intake Total 980 500 Output Total 1101 350 500 Balance -121 150 -500 PT 16.8 SEC (12.0-15.0) H 06/08/17 Unknown INR 1.34 (0.83-1.16) H 06/08/17 Unknown - Physical Exam Cardiovascular: regular rate and rhythym, no murmur, rub, or gallop, edema (3+) Respiratory: no respiratory distress, no rales or rhonchi, clear to auscultation Gastrointestinal: normoactive bowel sounds, soft, non-tender abdomen, no palpable masses Skin: no rashes or abrasions, no fluctuance, no induration Neurologic: AAOx3, sensation intact bilaterally Psychiatric: interacting appropriately, not anxious, not encephalopathic, thought process linear ICD10 Worksheet Patient Problems: Problems Problem Status Onset Pancreatic cancer Acute Pneumonia Acute chronic disease mgmt/transitional care Acute Acute renal failure Acute Hyperglycemia due to type 2 diabetes mellitus Acute Nausea & vomiting Acute Septic shock Acute
[2017-06-11] MEDS: LORazepam 0.5 MG TAB PO SCH (20:46)
[2017-06-11] MEDS: GLUCOSAMINE SULF 500 MG CAP PO SCH (20:47)
[2017-06-11] MEDS: traMADol 50 MG TAB PO SCH (20:47)
[2017-06-11] MEDS: POTASSIUM Cl (KCl) 100 ML IV SCH ×2 (22:22→23:26)
[2017-06-12] MEDS: POTASSIUM Cl (KCl) 100 ML IV SCH ×2 (00:29→01:40)
[2017-06-12 05:02] LABS: PLATELET COUNT 84 10^3/uL (150-400)
[2017-06-12] MEDS ORDERED: POTASSIUM CL 10 MEQ TAB PO ONE ×3 (07:42→22:45)
[2017-06-12] MEDS ORDERED: MAGNESIUM SULF 2 GM/WATER 50 ML IV ONE (07:43)
[2017-06-12] MEDS: PANTOPRAZOLE SODIUM 40 MG TAB PO SCH (10:18)
[2017-06-12] MEDS: ALLOPURINOL 100 MG TAB PO SCH ×2 (10:18→22:19)
[2017-06-12] MEDS: INSULIN LISPRO 100 UNIT/ML SC SCH ×4 (10:20→22:28)
[2017-06-12] MEDS: ALBUMIN 25% 100 ML IV SCH ×2 (10:20→15:58)
[2017-06-12] MEDS: ENOXAPARIN 40 MG/0.4 ML SYR SC SCH (10:52)
--- NOTE | 2017-06-12 12:06 | HOSPPROG ---
Hospitalist Progress Note Assessment/Plan: * Anasarca - massive volume overload - due to hypoalbuminemia -IV Lasix + IV albumin -now with good diuresis - continue * Large pleural effusions - transudative -diuresis as above * Pancreatic cancer - stage III - s/p chemo -s/p biliary stent * Scalp abrasion due to fall * Leukocytosis -likely due to recent Neulasta * Severe protein calorie malnutrition -d/w mother - increased protein and decreased sodium needed in diet * DM II -glucose okay - holding lantus Subjective: Great diuresis overnight Objective: Vital Signs Temp Pulse Resp BP Pulse Ox 36.8 C 82 16 141/69 H 93 06/12/17 08:04 06/12/17 08:04 06/12/17 08:04 06/12/17 08:04 06/12/17 08:04 Microbiology 06/09/17 11:23 Gram Stain - Final Thoracic Fluid - Aspirate Laboratory Results 06/12/17 04:45 06/12/17 04:45 06/11/17 06/12/17 06/13/17 05:59 05:59 05:59 Intake Total 500 710 Output Total 350 5000 300 Balance 150 -4290 -300 PT 16.8 SEC (12.0-15.0) H 06/08/17 Unknown INR 1.34 (0.83-1.16) H 06/08/17 Unknown - Physical Exam Constitutional: no apparent distress, appears nourished, not in pain Cardiovascular: regular rate and rhythym, no murmur, rub, or gallop, edema (3+) Respiratory: no respiratory distress, no rales or rhonchi, clear to auscultation Gastrointestinal: normoactive bowel sounds, soft, non-tender abdomen, no palpable masses Skin: no rashes or abrasions, no fluctuance, no induration Neurologic: AAOx3, sensation intact bilaterally Psychiatric: interacting appropriately, not anxious, not encephalopathic, thought process linear ICD10 Worksheet Patient Problems: Problems Problem Status Onset Pancreatic cancer Acute Pneumonia Acute chronic disease mgmt/transitional care Acute Acute renal failure Acute Hyperglycemia due to type 2 diabetes mellitus Acute Nausea & vomiting Acute Septic shock Acute
--- NOTE | 2017-06-12 12:11 | SOAPPROG ---
GINA Progress Note Assessment/Plan: E&M for pancreatic cancer * stage III locally advanced pancreatic ca: not a surgical candidate. Completed 7 cycles of neoadjuvant FOLFIRINOX. Was planning 8 and then radiation. I think we should stop and let him recover then go to radiation. * weakness and fatigue, deconditions: chemo related/electrolyte abnormalities/ dehydration. Agree with SNF * Anemia/thrombocytopenia: last PRBCs 06/10. No tx requirements today * Large pleural effusions and anasarca: likely due to hypoalbuminemia; thoracentesis 06/09; micro so far negative and cytology pending Subjective: Didn't sleep well due to multiple urination. Generally starting to feel better. Mother with patient. Objective: Vital Signs Temp Pulse Resp BP Pulse Ox 36.8 C 82 16 141/69 H 93 06/12/17 08:04 06/12/17 08:04 06/12/17 08:04 06/12/17 08:04 06/12/17 08:04 Microbiology 06/09/17 11:23 Gram Stain - Final Thoracic Fluid - Aspirate Laboratory Results 06/12/17 04:45 06/12/17 04:45 06/11/17 06/12/17 06/13/17 05:59 05:59 05:59 Intake Total 500 710 Output Total 350 5000 300 Balance 150 -4290 -300 PT 16.8 SEC (12.0-15.0) H 06/08/17 Unknown INR 1.34 (0.83-1.16) H 06/08/17 Unknown Laboratory Tests 06/11/17 06/12/17 06:30 04:45 WBC 12.54 H 17.63 H Hgb 9.3 L 10.1 L Plt Count 72 L 84 L Physical Exam - Physical Exam General Appearance: no apparent distress Respiratory: lungs clear Cardiac/Chest: regular rate, rhythm, edema (3+) Abdomen: non-tender, soft ICD10 Worksheet Patient Problems: Problems Problem Status Onset Pancreatic cancer Acute Pneumonia Acute chronic disease mgmt/transitional care Acute Acute renal failure Acute Hyperglycemia due to type 2 diabetes mellitus Acute Nausea & vomiting Acute Septic shock Acute
[2017-06-12] MEDS: FUROSEMIDE 20 MG/2 ML VIAL IVP SCH ×2 (12:15→16:50)
--- NOTE | 2017-06-12 16:37 | ASMTCMCOM ---
CM Note CM Note Notes: Spoke with patient and his mother Cecy about SNF. They are interested in something in [place] since patient's mother has other errands to run and people to see there and she does not drive. Patient is aggreeable to this, as well. I sent a referral to [facility], and based on their response we will proceed. Patient and mother amenable to other SNF if [facility] does not work out. Case Management will follow. Date Signed: 06/12/2017 04:37 PM Electronically Signed By:Heather Berumen RN
[2017-06-12] MEDS ORDERED: POTASSIUM CL 20 MEQ TAB PO ONE (20:37)
[2017-06-12] MEDS: LORazepam 0.5 MG TAB PO SCH (22:19)
[2017-06-12] MEDS: traMADol 50 MG TAB PO SCH (22:19)
[2017-06-12] MEDS: MULTIVITAMINS 1 EACH TAB PO SCH (22:19)
[2017-06-13 06:02] LABS: PLATELET COUNT 75 10^3/uL (150-400)
[2017-06-13] MEDS ORDERED: POTASSIUM CL 10 MEQ TAB PO ONE ×2 (08:43→19:29)
[2017-06-13] MEDS: PANTOPRAZOLE SODIUM 40 MG TAB PO SCH (09:01)
[2017-06-13] MEDS: ALLOPURINOL 100 MG TAB PO SCH ×2 (09:01→21:32)
[2017-06-13] MEDS: ALBUMIN 25% 100 ML IV SCH ×2 (09:02→15:16)
[2017-06-13] MEDS: ENOXAPARIN 40 MG/0.4 ML SYR SC SCH (09:02)
[2017-06-13] MEDS ORDERED: MAGNESIUM SULF 1 GM/DEXTROSE 100 ML IV ONE (11:12)
[2017-06-13] MEDS: FUROSEMIDE 20 MG/2 ML VIAL IVP SCH ×2 (11:40→17:09)
[2017-06-13] MEDS: INSULIN LISPRO 100 UNIT/ML SC SCH ×4 (11:57→21:33)
--- NOTE | 2017-06-13 13:11 | SOAPPROG ---
SOAP Progress Note Assessment/Plan: E&M for pancreatic cancer * stage III locally advanced pancreatic ca: not a surgical candidate. Completed 7 cycles of neoadjuvant FOLFIRINOX. Was planning 8 and then radiation. I will stop, let him recover, and look into radiation +/- capecitabine. Will need outpatient CT. * * Weakness, fatigue, deconditioned: chemo related/electrolyte abnormalities/ dehydration. Agree with SNF * Anemia/thrombocytopenia: last PRBCs 06/10. No tx requirements today * Large pleural effusions and anasarca: likely due to hypoalbuminemia; thoracentesis 06/09; micro so far negative and cytology pending Subjective: Still urinating a lot. Getting around a little better. Occasional loose stool. Intermittent appetite. Objective: Vital Signs Temp Pulse Resp BP Pulse Ox 36.8 C 73 16 147/73 H 94 06/13/17 07:22 06/13/17 07:22 06/13/17 07:22 06/13/17 07:22 06/13/17 07:22 Microbiology 06/09/17 11:23 Gram Stain - Final Thoracic Fluid - Aspirate Body Fluid Culture - Final Laboratory Results 06/13/17 05:37 06/13/17 05:37 06/12/17 06/13/17 06/14/17 05:59 05:59 05:59 Intake Total 710 450 Output Total 5000 5220 450 Balance -4290 -4770 -450 PT 16.8 SEC (12.0-15.0) H 06/08/17 Unknown INR 1.34 (0.83-1.16) H 06/08/17 Unknown Laboratory Tests 06/11/17 06/12/17 06/13/17 06:30 04:45 05:37 WBC 12.54 H 17.63 H 16.26 H Hgb 9.3 L 10.1 L 9.8 L Plt Count 72 L 84 L 75 L Physical Exam - Physical Exam General Appearance: no apparent distress Respiratory: decreased breath sounds (bases) Cardiac/Chest: regular rate, rhythm, edema ICD10 Worksheet Patient Problems: Problems Problem Status Onset Pancreatic cancer Acute Pneumonia Acute chronic disease mgmt/transitional care Acute Acute renal failure Acute Hyperglycemia due to type 2 diabetes mellitus Acute Nausea & vomiting Acute Septic shock Acute
--- NOTE | 2017-06-13 14:11 | HOSPPROG ---
Hospitalist Progress Note Assessment/Plan: * Anasarca - massive volume overload - due to hypoalbuminemia -IV Lasix + IV albumin -now with good diuresis - continue * Large pleural effusions - transudative -diuresis as above * Pancreatic cancer - stage III - s/p chemo -s/p biliary stent * Scalp abrasion due to fall * Leukocytosis -likely due to recent Neulasta * Severe protein calorie malnutrition -d/w mother - increased protein and decreased sodium needed in diet * DM II -glucose okay - holding lantus Subjective: Good diuresis Objective: Vital Signs Temp Pulse Resp BP Pulse Ox 36.8 C 73 16 147/73 H 94 06/13/17 07:22 06/13/17 07:22 06/13/17 07:22 06/13/17 07:22 06/13/17 07:22 Microbiology 06/09/17 11:23 Gram Stain - Final Thoracic Fluid - Aspirate Body Fluid Culture - Final Laboratory Results 06/13/17 05:37 06/13/17 05:37 06/12/17 06/13/17 06/14/17 05:59 05:59 05:59 Intake Total 710 450 Output Total 5000 5220 450 Balance -4290 -4770 -450 PT 16.8 SEC (12.0-15.0) H 06/08/17 Unknown INR 1.34 (0.83-1.16) H 06/08/17 Unknown - Physical Exam Constitutional: no apparent distress, appears nourished, not in pain Cardiovascular: regular rate and rhythym, no murmur, rub, or gallop, edema (3+) Respiratory: no respiratory distress, no rales or rhonchi, clear to auscultation Gastrointestinal: normoactive bowel sounds, soft, non-tender abdomen, no palpable masses Skin: no rashes or abrasions, no fluctuance, no induration Neurologic: AAOx3, sensation intact bilaterally Psychiatric: interacting appropriately, not anxious, not encephalopathic, thought process linear ICD10 Worksheet Patient Problems: Problems Problem Status Onset Pancreatic cancer Acute Pneumonia Acute chronic disease mgmt/transitional care Acute Acute renal failure Acute Hyperglycemia due to type 2 diabetes mellitus Acute Nausea & vomiting Acute Septic shock Acute
[2017-06-13] MEDS: MULTIVITAMINS 1 EACH TAB PO SCH (21:30)
[2017-06-13] MEDS: LORazepam 0.5 MG TAB PO SCH (21:30)
[2017-06-13] MEDS: traMADol 50 MG TAB PO SCH (21:32)
[2017-06-14 05:05] LABS: PLATELET COUNT 75 10^3/uL (150-400)
[2017-06-14] MEDS ORDERED: POTASSIUM CL 10 MEQ TAB PO ONE (07:41)
[2017-06-14] MEDS ORDERED: MAGNESIUM SULF 1 GM/DEXTROSE 100 ML IV ONE (07:42)
[2017-06-14] MEDS: INSULIN LISPRO 100 UNIT/ML SC SCH ×5 (08:32→21:42)
[2017-06-14] MEDS: ALBUMIN 25% 100 ML IV SCH (08:40)
[2017-06-14] MEDS ORDERED: POTASSIUM CL 20 MEQ/15 ML UDCUP PO ONE ×2 (08:45→21:00)
[2017-06-14] MEDS: ENOXAPARIN 40 MG/0.4 ML SYR SC SCH (08:48)
[2017-06-14] MEDS: PANTOPRAZOLE SODIUM 40 MG TAB PO SCH (10:14)
[2017-06-14] MEDS: ALLOPURINOL 100 MG TAB PO SCH ×2 (10:14→20:52)
[2017-06-14] MEDS: FUROSEMIDE 20 MG/2 ML VIAL IVP SCH ×2 (11:14→17:11)
--- NOTE | 2017-06-14 13:37 | SOAPPROG ---
GINA Progress Note Assessment/Plan: Assessment: E&M for pancreatic cancer * stage III locally advanced pancreatic ca: not a surgical candidate. Completed 7 cycles of neoadjuvant FOLFIRINOX. Was planning 8 and then radiation. I will stop, let him recover, and look into radiation +/- capecitabine. Will need outpatient CT. * * Weakness, fatigue, deconditioned: chemo related/electrolyte abnormalities/ dehydration. Agree with SNF * Anemia/thrombocytopenia: last PRBCs 06/10. No tx requirements today * Large pleural effusions and anasarca: likely due to hypoalbuminemia; thoracentesis 06/09; micro so far negative and cytology negative. Plan:Continue Lasix, plan is for SNF placement 06/14/17 13:34 Subjective: Tired, sleeping poorly because of frequent urination at night Objective: Vital Signs Temp Pulse Resp BP Pulse Ox 97.8 F 86 14 122/66 H 96 06/14/17 11:30 06/14/17 11:30 06/14/17 11:30 06/14/17 11:30 06/14/17 11:30 Laboratory Results 06/14/17 04:51 06/14/17 04:51 06/13/17 06/14/17 06/15/17 05:59 05:59 05:59 Intake Total 450 1250 Output Total 5220 3625 750 Balance -4770 -1875 -750 PT 16.8 SEC (12.0-15.0) H 06/08/17 Unknown INR 1.34 (0.83-1.16) H 06/08/17 Unknown Physical Exam - Physical Exam General Appearance: alert, other (tired) Respiratory: decreased breath sounds Cardiac/Chest: regular rate, rhythm Abdomen: normal bowel sounds, non-tender Extremities: swelling ICD10 Worksheet Patient Problems: Problems Problem Status Onset Pancreatic cancer Acute Pneumonia Acute chronic disease mgmt/transitional care Acute Acute renal failure Acute Hyperglycemia due to type 2 diabetes mellitus Acute Nausea & vomiting Acute Septic shock Acute
--- NOTE | 2017-06-14 18:00 | HOSPPROG ---
Hospitalist Progress Note Assessment/Plan: * Anasarca - massive volume overload - due to hypoalbuminemia -IV Lasix + IV albumin -still with 3+ edema to upper thigh - 1-2 days more IV diuresis * Large pleural effusions - transudative -diuresis as above * Pancreatic cancer - stage III - s/p chemo -s/p biliary stent * Scalp abrasion due to fall * Leukocytosis -likely due to recent Neulasta * Severe protein calorie malnutrition -increased protein and decreased sodium needed in diet * DM II -glucose okay - holding lantus Subjective: Good diuresis, continues to urinate frequently Objective: Vital Signs Temp Pulse Resp BP Pulse Ox 37.0 C 72 14 133/70 H 98 06/14/17 15:45 06/14/17 15:45 06/14/17 15:45 06/14/17 15:45 06/14/17 15:45 Laboratory Results 06/14/17 04:51 06/14/17 04:51 06/13/17 06/14/17 06/15/17 05:59 05:59 05:59 Intake Total 450 1250 240 Output Total 5220 3125 1685 Balance -6128 -4214 -8146 PT 16.8 SEC (12.0-15.0) H 06/08/17 Unknown INR 1.34 (0.83-1.16) H 06/08/17 Unknown - Physical Exam Constitutional: no apparent distress, appears nourished, not in pain Cardiovascular: regular rate and rhythym, edema (3+) Respiratory: no respiratory distress, no rales or rhonchi, clear to auscultation Gastrointestinal: normoactive bowel sounds, soft, non-tender abdomen, no palpable masses Skin: no rashes or abrasions, no fluctuance, no induration Neurologic: AAOx3, sensation intact bilaterally Psychiatric: interacting appropriately, not anxious, not encephalopathic, thought process linear ICD10 Worksheet Patient Problems: Problems Problem Status Onset Pancreatic cancer Acute Pneumonia Acute chronic disease mgmt/transitional care Acute Acute renal failure Acute Hyperglycemia due to type 2 diabetes mellitus Acute Nausea & vomiting Acute Septic shock Acute
[2017-06-14] MEDS: GLUCOSAMINE SULF 500 MG CAP PO SCH (20:52)
[2017-06-14] MEDS: traMADol 50 MG TAB PO SCH (20:52)
[2017-06-14] MEDS: LORazepam 0.5 MG TAB PO SCH (20:53)
[2017-06-15 05:54] LABS: PLATELET COUNT 62 10^3/uL (150-400)
[2017-06-15] MEDS ORDERED: POTASSIUM CL 10 MEQ TAB PO ONE ×2 (07:41→19:57)
[2017-06-15] MEDS ORDERED: MAGNESIUM SULF 1 GM/DEXTROSE 100 ML IV ONE (07:41)
[2017-06-15] MEDS: INSULIN LISPRO 100 UNIT/ML SC SCH ×4 (07:43→22:00)
[2017-06-15] MEDS ORDERED: POTASSIUM CL 20 MEQ/15 ML UDCUP PO ONE (08:00)
[2017-06-15] MEDS: PANTOPRAZOLE SODIUM 40 MG TAB PO SCH (08:22)
[2017-06-15] MEDS: ALLOPURINOL 100 MG TAB PO SCH ×2 (08:22→20:19)
[2017-06-15] MEDS: ENOXAPARIN 40 MG/0.4 ML SYR SC SCH (10:33)
--- NOTE | 2017-06-15 11:07 | HOSPPROG ---
Hospitalist Progress Note Assessment/Plan: #Anasarca: transition to oral Lasix #Thrombocytopenia/pancytopenia: no e/o bleeding #Hypokalemia: repleting with diuresis #Pancreatic cancer: s/p biliary stent #Leukocytosis: nearly resolved. recent Neulasta. Afebrile #Scalp abrasion: due to fall #Severe protein caloric malnutrition: educated family on diet. Ensure supplements. Consider Remeron for appetite stimulation #Deconditioning: DC to [facility] #Type 2 DM: holding Lantus with poor appetite #Diet: 2gram Na #DVT ppx: SCDs #Disp: plan to DC in next 1-2 days if still diuresing well. Cont electrolyte repletion Subjective: no fevers, chills. Legs feel less swollen Objective: Vital Signs Temp Pulse Resp BP Pulse Ox 36.7 C 79 18 107/56 L 95 06/15/17 08:16 06/15/17 08:16 06/15/17 08:16 06/15/17 08:16 06/15/17 08:16 Laboratory Results 06/15/17 05:40 06/15/17 05:40 06/14/17 06/15/17 06/16/17 05:59 05:59 05:59 Intake Total 1250 940 Output Total 3125 3480 200 Balance -1875 -2540 -200 PT 16.8 SEC (12.0-15.0) H 06/08/17 Unknown INR 1.34 (0.83-1.16) H 06/08/17 Unknown - Time Spent With Patient Time Spent with Patient: greater than 35 minutes Time Spent with Patient: Greater than 35 minutes spent on this patients care, greater than 50% of time spent counseling, educating, and coordinating care regarding the above mentioned plan. - Physical Exam Constitutional: chronically ill appearing, other (pale) Ears, Nose, Mouth, Throat: moist mucous membranes, other (scalp laceration scabbed over) Cardiovascular: regular rate and rhythym, edema (+2-3 leg edema.) Gastrointestinal: normoactive bowel sounds Genitourinary: no bladder fullness Skin: warm, other (edema with redness over shins and small blisters from edema. No purluence) Musculoskeletal: full muscle strength Neurologic: AAOx3, CN II-XII Intact Psychiatric: flat affect ICD10 Worksheet Patient Problems: Problems Problem Status Onset Pancreatic cancer Acute Pneumonia Acute chronic disease mgmt/transitional care Acute Acute renal failure Acute Hyperglycemia due to type 2 diabetes mellitus Acute Nausea & vomiting Acute Septic shock Acute
--- NOTE | 2017-06-15 11:34 | SOAPPROG ---
SOAP Progress Note Assessment/Plan: Assessment: E&M for pancreatic cancer * stage III locally advanced pancreatic ca: not a surgical candidate. Completed 7 cycles of neoadjuvant FOLFIRINOX. Will look into radiation +/- capecitabine, after recovery, discussed rational for this as well as potential side effects with pt and mother. Will need outpatient CT. * * Weakness, fatigue, deconditioned: chemo related/electrolyte abnormalities/ dehydration. Agree with SNF * Anemia/thrombocytopenia: last PRBCs 06/10. No tx requirements today * Large pleural effusions and anasarca, diuresing, wt down, k being repleted Plan:Continue Lasix,now po, plan is for SNF placement, should follow up Dr Poe 2 weeks 06/14/17 13:34 06/15/17 11:31 Subjective: Feels ok , getting stronger Objective: Vital Signs Temp Pulse Resp BP Pulse Ox 98.0 F 79 18 107/56 L 95 06/15/17 08:16 06/15/17 08:16 06/15/17 08:16 06/15/17 08:16 06/15/17 08:16 Laboratory Results 06/15/17 05:40 06/15/17 05:40 06/14/17 06/15/17 06/16/17 05:59 05:59 05:59 Intake Total 1250 940 Output Total 3125 3480 200 Balance -1875 -2540 -200 PT 16.8 SEC (12.0-15.0) H 06/08/17 Unknown INR 1.34 (0.83-1.16) H 06/08/17 Unknown Physical Exam - Physical Exam General Appearance: alert, mild distress Respiratory: chest non-tender, lungs clear Cardiac/Chest: normal peripheral pulses, regular rate, rhythm Abdomen: normal bowel sounds, non-tender Extremities: swelling ICD10 Worksheet Patient Problems: Problems Problem Status Onset Pancreatic cancer Acute Pneumonia Acute chronic disease mgmt/transitional care Acute Acute renal failure Acute Hyperglycemia due to type 2 diabetes mellitus Acute Nausea & vomiting Acute Septic shock Acute
[2017-06-15] MEDS: FUROSEMIDE 40 MG TAB PO SCH ×2 (12:07→16:07)
[2017-06-15] MEDS: FUROSEMIDE 20 MG/2 ML VIAL IVP SCH (12:11)
--- NOTE | 2017-06-15 15:42 | ASMTCMCOM ---
BRAULIO Note CM Note Notes: Spoke with Joy from [facility] - she anticipates an open bed tomorrow although it is possible the bed will still be occupied. Patient should be ready for discharge in the next 1-2 days depending on how well he diureses. I spoke with he and his mother Cecy about the tentative plan to go to [facility] tomorrow, and, as always, they are appreciative and flexible. Date Signed: 06/15/2017 03:42 PM Electronically Signed By:Heather Berumen RN
[2017-06-15] MEDS: MULTIVITAMINS 1 EACH TAB PO SCH (20:19)
[2017-06-15] MEDS: LORazepam 0.5 MG TAB PO SCH (20:19)
[2017-06-15] MEDS: traMADol 50 MG TAB PO SCH (20:20)
[2017-06-16] MEDS ORDERED: MAGNESIUM SULF 1 GM/DEXTROSE 100 ML IV ONE (07:14)
[2017-06-16] MEDS ORDERED: POTASSIUM CL 10 MEQ TAB PO ONE (07:14)
[2017-06-16] MEDS ORDERED: POTASSIUM CL 20 MEQ/15 ML UDCUP PO ONE (08:15)
[2017-06-16] MEDS: INSULIN LISPRO 100 UNIT/ML SC SCH ×2 (09:04→11:17)
[2017-06-16] MEDS: PANTOPRAZOLE SODIUM 40 MG TAB PO SCH (09:07)
[2017-06-16] MEDS: ALLOPURINOL 100 MG TAB PO SCH (09:07)
[2017-06-16] MEDS: ENOXAPARIN 40 MG/0.4 ML SYR SC SCH (09:07)
[2017-06-16] MEDS: FUROSEMIDE 40 MG TAB PO SCH (09:07)
--- NOTE | 2017-06-16 09:08 | PDIAF ---
- Diagnosis Diagnosis: pancreatic cancer, volume overload Code Status: Full Code - Medication Management Discharge Medications: Medications to Continue on Transfer Allopurinol [Allopurinol 100 MG (*)] 100 mg PO BID 01/16/17 [Last Taken 09:00] Herbals/Supplements -Info Only 1 ea PO DAILY 01/16/17 [Last Taken Unknown] LORazepam [Ativan (*)] 0.5 mg PO HS 01/16/17 [Last Taken 06/06/17] Multivitamins [Multivitamin (*)] 1 each PO SUTUTHSA@21 01/16/17 [Last Taken ] Potassium Chloride 10 meq PO BID 01/16/17 [Last Taken 06/07/17 09:00] Prochlorperazine Maleate [Compazine 10mg (*)] 10 mg PO TID PRN 01/16/17 [Last Taken 05/17/17 21:00] traMADol [Ultram 50 mg (*)] 50 mg PO HS 01/16/17 [Last Taken 06/06/17] Pantoprazole Sodium [Protonix 40mg (*)] 40 mg PO DAILY #30 tab 01/24/17 [Last Taken 06/07/17] Acetaminophen [Tylenol ES 500 mg (*)] 500 mg PO BID 05/19/17 [Last Taken 09:00] Glucosamine Sulfate [Glucosamine Sulfate 500 MG (*)] 500 mg PO MWF@21 05/19/17 [ Last Taken 06/04/17] Hydrocortisone [Proctofoam-Hc (OTC)] 1 marvel ME DAILY PRN 05/19/17 [Last Taken Unknown] Furosemide [Lasix 40 MG (*)] 40 mg PO BID #0 06/16/17 [Last Taken 06/07/17] Furosemide [Lasix 40 MG (*)] 40 mg PO BID@0900,1500 tab 06/16/17 [Last Taken Unknown] Discharge Medications: Refer to the Discharge Home Medication list for PRN reason. - Orders Services needed: Registered Nurse, Certified Career Portals Teacher, Physical Therapy, Occupational Therapy Isolation Type: None Diet Recommendation: sodium restricted (2 gram sodium ), ADA 2200 consistent carb Diet Texture: Regular Texture Diet Additional Instructions: Monitor Cr with diuresis. May need to reduce Lasix dose. - Labs/Radiology BMP Date: 06/17/17 (Monitor Cr with diuresis.) - Follow Up Care Current Providers and Referrals: Zafar Kirby MD [Primary Care Provider] - As per Instructions
--- NOTE | 2017-06-16 12:16 | GDS ---
[f rep st] DISCHARGE SUMMARY DISCHARGE DIAGNOSES: 1. Stage III locally advanced pancreatic cancer who completed 7 cycles of neoadjuvant FOLFIRINOX. 2. Severe deconditioning. 3. Anemia/thrombocytopenia. 4. Scalp laceration. 5. Hypokalemia. 6. Leukocytosis. 7. Severe protein caloric malnutrition. 8. Anasarca. 9. Type 2 diabetes. 10. Acute kidney injury. 11. Coagulopathy. HISTORY OF PRESENT ILLNESS: A 67-year-old male with locally advanced pancreatic cancer, presented to the ER with a fall. He was having increased weakness without focal deficits. He was in the bathroom, sustained a fall, hitting his head and striking the top of his head in the bathroom. He denied loss of consciousness. At that time, he denied headache, change of vision, or acute numbness. HOSPITAL COURSE: 1. Fall: Has a scalp laceration: CT was unremarkable. This is healing well. 2. Stage III locally advanced pancreatic cancer: He is not a surgical candidate. Completed 7 cycles of neoadjuvant FOLFIRINOX. Oncology will look into radiation, plus capecitabine after recovery. Should follow up with Dr. Poe in 2 weeks. 3. Severe deconditioning: He has been previously admitted with similar weakness. He and his family have agreed for discharge to [facility] to resume physical therapy. 4. Anemia/thrombocytopenia. Blood counts have remained stable. His last transfusion was on 06/10/2017. 5. Hypoalbuminemia/anasarca: Likely related to chronic illness. He was aggressively diuresed with IV Lasix. I have transitioned to 40 mg b.i.d. Will need serial BMP to monitor kidney function and potassium. Provide supplemental potassium. Low-sodium diet. 6. Coagulopathy: Related to liver involvement. No active bleeding. 7. Acute kidney injury: This resolved with IV fluids. 8. Diet-controlled type 2 diabetes: His sugars have been well controlled on just sliding scale here. Will not add glargine back at this time. 9. Transaminitis related to steatosis and cancer. 10. Leukocytosis: This was initially on admission. This is likely related to recent Neulasta. It is nearly resolved today. DISPOSITION: Patient is stable for discharge to [facility]. DISCHARGE MEDICATIONS: New medication, Lasix 40 mg b.i.d. DISCHARGE INSTRUCTIONS/FOLLOWUP: 1. Follow up with Dr. Poe in 2 weeks. 2. BMP to monitor kidney function and electrolytes with diuresis. Lasix may need to be readjusted. 3. Continue PT/OT. 4. Low-sodium diet. PHYSICAL EXAMINATION: VITAL SIGNS: Today, temperature 36.5, blood pressure 111 /63, heart rate in 70s, respiration 16, 92% on room air. GENERAL: Chronically ill appearing, pale, sitting up in bed in no acute distress. HEENT: PERRLA. EOMI. Oropharynx clear. CV: Regular rate and rhythm. No murmurs, gallops, or rubs. LUNGS: Clear. ABDOMEN: Soft, nontender, nondistended. Positive bowel sounds. . No Bruce. MUSCULOSKELETAL: Moving all 4 extremities. +3 pitting edema to knees bilaterally. There is overlying mild erythema with some blisters, but no weeping or purulence. The redness appears due to swelling, not cellulitic. NEURO: 2 through 12 intact. PSYCH: Alert and oriented x3. Flat affect. Time spent on discharge: Greater than 45 minutes discussing followup plan with family and coordinating discharge to [facility]. /[id number]
[2017-06-16 12:39] VITALS: BP 105/62
--- NOTE | 2017-06-16 14:24 | ASDISCHSUM ---
Discharge Information Plan Status: Medically Cleared to Leave: Discharge Date:06/16/2017 02:04 PM CM D/C Disposition: ADT D/C Disposition:Retirement Facility Projected Discharge Date:06/16/2017 11:00 AM Transportation at D/C: Discharge Delay Reason: Follow-Up Date:06/16/2017 11:00 AM Discharge Slot: Final Diagnosis: Placement Information Referral Type:*Long Term/SNF Referral ID:[id number] Provider Name:[facility] Address 1:[address] Address 2: City:[place] Selection Factors: State:[place] Patient Contact Information Contact Name:JACKSONCANDELARIO Relationship:Mother Address:[address] Work Phone: [facility] Alternate Phone: State/Zip Code:[place] [address] Email: Financial Information Financial Class:Medicare Primary Plan Desc:MEDICARE INPATIENT Primary Plan Number:[id number] Secondary Plan Desc:[employer] FEDERAL PLAN Secondary Plan Number:[id number] Assessment Information [facility] CM Progress Note CM Note CM Note Notes: Pt admitted after fall at home, cxr indicative of PNA, hx of pancreatic adenocarcinoma- currently undergoing treatment. Pt lives at home w/mother who is in her 90's. Pt followed by Duncan Zuniga- [place]ram from here and discussed dc plan. She felt pt would likely refuse SNF. OT recommending SNF vs HHC, awaiting PT's rec. Pt will likely need HHC at the very least. Date Signed: 06/08/2017 04:08 PM Electronically Signed By:Micki Gordon RN [facility] CM Progress Note CM Note CM Note Notes: DC plan is SNF vs HC. Pt sleeping all day. Spoke with pt's mother who helps care for him. She stated that pt's brother is arriving this PM from [place]. She wants to discuss with pt's brother to both see if he can help care for pt and also to decide if SNF vs HC is best. Pt has fallen at home and is weak but may improve before DC. CM to follow. Date Signed: 06/10/2017 04:29 PM Electronically Signed By:Fatmata Aguiar LCSW [facility] CM Progress Note CM Note CM Note Notes: Spoke with patient and his mother Cecy about SNF. They are interested in something in [place] since patient's mother has other errands to run and people to see there and she does not drive. Patient is aggreeable to this, as well. I sent a referral to [facility], and based on their response we will proceed. Patient and mother amenable to other SNF if [facility] does not work out. Case Management will follow. Date Signed: 06/12/2017 04:37 PM Electronically Signed By:Heather Berumen RN [facility] CM Progress Note CM Note CM Note Notes: Spoke with Joy from [facility] - she anticipates an open bed tomorrow although it is possible the bed will still be occupied. Patient should be ready for discharge in the next 1-2 days depending on how well he diureses. I spoke with he and his mother Cecy about the tentative plan to go to [facility] tomorrow, and, as always, they are appreciative and flexible. Date Signed: 06/15/2017 03:42 PM Electronically Signed By:Heather Berumen RN [facility] CM Progress Note CM Note CM Note Notes: Pt DC'd to [facility] today. Final orders faced. [facility] provided transport. Date Signed: 06/16/2017 02:22 PM Electronically Signed By:Fatmata Aguiar LCSW Intervention Information Intervention Type:*IM-Signed Date of Service:06/16/2017 11:41 AM Patient Type:Inpatient Staff Member:Ana Santamaria Hours: Discipline: Severity: Comment:
== END 2017-06-16 14:04 | DRG 186 ==
LOC: F1N 22:59
PROVIDERS: ADMIT Internal Medicine; ATTEND Internal Medicine
PROC: 0W993ZX Drainage of Right Pleural Cavity, Percutaneous Approach, Diagnostic (ICD-10-PCS; principal; 2017-06-09)
PROC: 30233N1 Transfusion of Nonautologous Red Blood Cells into Peripheral Vein, Percutaneous Approach (ICD-10-PCS; 2017-06-10)
DX: J90 Pleural effusion, not elsewhere classified (principal); C25.1 Malignant neoplasm of body of pancreas; E43 Unspecified severe protein-calorie malnutrition; E88.09 Other disorders of plasma-protein metabolism, not elsewhere classified; C78.7 Secondary malignant neoplasm of liver and intrahepatic bile duct; N17.9 Acute kidney failure, unspecified; D68.9 Coagulation defect, unspecified; E87.2 Acidosis; D64.81 Anemia due to antineoplastic chemotherapy; D69.6 Thrombocytopenia, unspecified; R60.1 Generalized edema; R53.81 Other malaise; E11.9 Type 2 diabetes mellitus without complications; I10 Essential (primary) hypertension; E87.6 Hypokalemia; D63.8 Anemia in other chronic diseases classified elsewhere; R09.02 Hypoxemia; S01.01XA Laceration without foreign body of scalp, initial encounter; W19.XXXA Unspecified fall, initial encounter; Y92.012 Bathroom of single-family (private) house as the place of occurrence of the external cause; Z79.4 Long term (current) use of insulin
CPT/HCPCS: 84134-90; 96365; 97116-GP; 97162-GP; 97166-GO; 97530-GO; 97530-GP; 97535-GO; G8978-GP-CJ; G8979-GP-CI; G8980-GP-CI; G8987-GO-CK; G8988-GO-CI; J1642; J1644; J1650; J1815; J1940; J1956; J2405; J3475; J3480; P9016; P9047

== ENCOUNTER → 2017-10-28 | Outpatient (CLI) | payer BC | LOC: FIMAGING 10-14 12:57 | PROVIDERS: ATTEND Internal Medicine Hematology & Oncology | DX: Z13.820 Encounter for screening for osteoporosis (principal); Z85.07 Personal history of malignant neoplasm of pancreas; E11.9 Type 2 diabetes mellitus without complications; Z79.4 Long term (current) use of insulin ==

== ENCOUNTER → 2018-03-25 | Outpatient (CLI) | payer BC | LOC: FIMAGING 12:53 | PROVIDERS: ATTEND Internal Medicine Hematology & Oncology | DX: K59.00 Constipation, unspecified (principal); R14.0 Abdominal distension (gaseous) ==

== ENCOUNTER → 2018-03-26 | Outpatient (CLI) | payer BC ==
[~2018-03-26] MED LIST changes: +ACETAMINOPHEN 325 MG TAB PO ONE; +FUROSEMIDE 20 MG/2 ML VIAL IVP ONE; -IOPAMIDOL (ISOVUE-300) 100 ML BTL ONE; +diphenhydrAMINE 25 MG CAP PO ONE
== END ==
LOC: FOBOP 11:36
PROVIDERS: ATTEND Internal Medicine Hematology & Oncology
PROC: 30233N1 Transfusion of Nonautologous Red Blood Cells into Peripheral Vein, Percutaneous Approach (ICD-10-PCS; principal; 2018-03-26)
DX: C25.9 Malignant neoplasm of pancreas, unspecified (principal); D69.6 Thrombocytopenia, unspecified; D53.1 Other megaloblastic anemias, not elsewhere classified; E11.9 Type 2 diabetes mellitus without complications; E78.00 Pure hypercholesterolemia, unspecified; M10.9 Gout, unspecified; I10 Essential (primary) hypertension; R60.9 Edema, unspecified; K86.89 Other specified diseases of pancreas; N18.3 Chronic kidney disease, stage 3 (moderate)
CPT/HCPCS: 36430; P9016; J1642; J1940

== ENCOUNTER → 2018-03-28 | Outpatient (CLI) | payer BC | LOC: FIMAGING 09:12 | PROVIDERS: ATTEND Internal Medicine Hematology & Oncology | DX: R94.5 Abnormal results of liver function studies (principal); R14.0 Abdominal distension (gaseous); R18.8 Other ascites; Z85.07 Personal history of malignant neoplasm of pancreas ==

== ENCOUNTER 2018-04-04 08:53 | Day surgery (SDC) | payer BC, OTHER ==
[2018-04-04] MEDS ORDERED: LIDOCAINE 1% 300 MG/30 ML SDV ONE (09:43)
[2018-04-04] MEDS ORDERED: ALBUMIN 25% 100 ML SOLN IV ONE (10:59)
[2018-04-04] MEDS ORDERED: LR 1,000 ML IV ONE (11:58)
[2018-04-04] MEDS ORDERED: IOTHALAMATE MEG (CONRAY) 50 ML VIAL IV ONE (12:15)
[2018-04-04] MEDS ORDERED: INDOMETHACIN 50 MG SUPP PR ONE (12:16)
--- NOTE | 2018-04-04 12:29 | PDANEPAE ---
ANE Past Medical History - Cardiovascular History Hx Hypertension: Yes Hx Arrhythmias: No Hx Chest Pain: No Hx Coronary Artery / Peripheral Vascular Disease: No Hx CHF / Valvular Disease: No Hx Palpitations: No Cardiovascular History Comment: hypercholesterolemia - Pulmonary History Hx COPD: No Hx Asthma/Reactive Airway Disease: No Hx Recent Upper Respiratory Infection: No Hx Oxygen in Use at Home: No Hx Sleep Apnea: No Sleep Apnea Screening Result - Last Documented: Negative - Neurologic History Hx Cerebrovascular Accident: No Hx Seizures: No Hx Dementia: No - Endocrine History Hx Diabetes: Yes Endocrine History Comment: DM II - Renal History Hx Renal Disorders: Yes Renal History Comment: KIDNEY STONE YRS AGO. CKD stg 3 - Liver History Hx Hepatic Disorders: No - Neurological & Psychiatric Hx Hx Neurological and Psychiatric Disorders: Yes Neurological / Psychiatric History Comment: anxiety. depression - Cancer History Hx Cancer: Yes Cancer History Comment: SKIN CA. pancreatic cancer. chemo and radiation last year ending in nov - Congenital Disorder History Hx Congenital Disorders: Yes - GI History Hx Gastrointestinal Disorders: Yes Gastrointestinal History Comment: hemorrhoids. hx of colonoscopies. constipation currently - Other Health History Other Health History: wears glasses. chronic sinus issues. gout - Chronic Pain History Chronic Pain: Yes (back pain) - Surgical History Prior Surgeries: paracentesis scheduled for wednesday AM at 1000. SKIN CA FOREHEAD. COLONOSCOPIES. ORAL SURGERY ANE Review of Systems Review of Systems: - Exercise capacity METS (RN): 3 METS ANE Patient History - Allergies Allergies/Adverse Reactions: coconut Allergy (Verified 04/01/18 16:54) ketoconazole Allergy (Verified 04/01/18 16:54) Rash niacinamide Allergy (Verified 04/01/18 16:54) Rash - Home Medications Home Medications: Allopurinol [Allopurinol 100 MG (*)] 01/16/17 [Last Taken 06/07/17 09:00] Herbals/Supplements -Info Only 01/16/17 [Last Taken 04/01/18] LORazepam [Ativan (*)] HS 01/16/17 [Last Taken 06/06/17] Potassium Chloride BID 01/16/17 [Last Taken 06/07/17 09:00] Acetaminophen [Tylenol ES 500 mg (*)] 05/19/17 [Last Taken 06/07/17 09:00] Basaglar Kwikpen U-100 04/01/18 [Last Taken Unknown] Furosemide [Lasix 40 MG (*)] 04/01/18 [Last Taken Unknown] Pantoprazole Sodium [Protonix 40mg (*)] 04/01/18 [Last Taken Unknown] Xarelto 04/01/18 [Last Taken 03/31/18] - NPO status NPO Since - Liquids (Date): 04/04/18 NPO Since - Liquids (Time): 06:00 NPO Since - Solids (Date): 04/03/18 NPO Since - Solids (Time): 18:30 - Smoking Hx Smoking Status: Never smoked - Family Anes Hx Family Hx Anesthesia Complications: none ANE Labs/Vital Signs - Vital Signs Blood Pressure: 110/55 Heart Rate: 71 Respiratory Rate: 18 O2 Sat (%): 100 Height: 167.64 cm Weight: 73.028 kg ANE Physical Exam - Airway Neck exam: FROM Mallampati Score: Class 2 Mouth exam: normal dental/mouth exam - Pulmonary Pulmonary: no respiratory distress - Cardiovascular Cardiovascular: regular rate and rhythym - ASA Status ASA Status: II ANE Anesthesia Plan Anesthesia Plan: general endotracheal anesthesia
[2018-04-04] MEDS ORDERED: fentaNYL 100 MCG/2 ML INJ ONE (12:30)
[2018-04-04] MEDS ORDERED: LIDOCAINE 2% 100 MG/5 ML SYR ONE (12:30)
[2018-04-04] MEDS ORDERED: PROPOFOL 200 MG/20 ML VIAL ONE (12:30)
[2018-04-04] MEDS ORDERED: ROCURONIUM 50 MG/5 ML VIAL ONE (12:30)
--- NOTE | 2018-04-04 12:41 | PDGENHP ---
History & Physical Chief Complaint: biliary obstruction History of Present Illness: 68 year old male with a history of pancreatic cancer presents for evaluation of biliary obstruction Pertinent Past, Social, Family History: PMHx: CKD, HTN, panc ca. See anesthesiology notes for details Relevant Physical Exam: HEENT: icteric. CV: RRR +s1s2. Lungs: CTAB. Abd: soft , nt, + bs Cardiorespiratory Assessment: ASA 3
[2018-04-04] MEDS ORDERED: NS 500 ML IV SCH (12:45)
[2018-04-04] MEDS ORDERED: ONDANSETRON 4 MG/2 ML VIAL IVP PRN (13:06)
[2018-04-04] MEDS ORDERED: ALBUTEROL 3 ML DEYVIAL IH PRN (13:06)
[2018-04-04] MEDS ORDERED: fentaNYL 100 MCG/2 ML INJ IVP PRN (13:06)
[2018-04-04] MEDS ORDERED: NALOXONE HCL 0.4 MG/ML INJ IVP PRN (13:06)
[2018-04-04] MEDS ORDERED: SUGAMMADEX SODIUM 200 MG/2 ML VIAL IVP ONE (13:11)
--- NOTE | 2018-04-04 13:22 | POSTANESTH ---
Post Anesthetic Evaluation Cardiovascular Status: Similar to Pre-Op Cond Respiratory Status: Similar to Pre-op Cond. Level of Consciousness/Mental Status: Mildly Sleepy, Arousable Pain Control: Adequate, Prn Tx Ordered Nausea/Vomiting Control: Adequate, Prn Tx Ordered Complications Possibly Related to Anesthesia: None Noted
--- NOTE | 2018-04-04 13:39 | GIREPORT ---
[facility] Surgical Services - Endoscopy Department Patient Name: Larry Singh Procedure Date: 04/04/2018 12:08 PM Patient Type: Outpatient Attending MD/ ER Physician: Mushtaq Faria MD Procedure: ERCP Indications: Jaundice, Elevated liver enzymes Patient Profile: 68 year old male with a history of pancreatic cancer with biliary obstruction presents for evaluation of jaundice/increased LFTs. He had a prior ERCP with placement of a self expanding metal stent. Providers: Mushtaq Faria MD Medicines: General Anesthesia Complications: No immediate complications. Estimated blood loss: Minimal. Description of Procedure: After obtaining informed consent, the scope was passed under direct vis ion. Throughout the procedure, the patient's blood pressure, pulse, and oxyg en saturations were monitored continuously. The Duodenalscope was introduc ed through the mouth, and advanced to the duodenum and used to inject cont rast into the bile duct. The ERCP was accomplished without difficulty. The patient tolerated the procedure well. Findings: A biliary stent was visible on the third officer film. One stent was removed fr om the biliary tree using a rat-toothed forceps. The stent appeared to hav e migrated into the duodenum. The ampulla had evidence of a prior biliary sphincterotomy. A wire was passed into the biliary tree. The short-nose d traction sphincterotome was passed over the guidewire and the bile duct was then deeply cannulated. Contrast was injected. I personally interpreted the bile duct images. Ductal flow of contrast was adequate. Image quality w as adequate. Contrast extended to the entire biliary tree. There were abou t 3 filling defects noted. A distal stricture of 3 cms was noted. The bilia ry tree was swept with a 12 mm balloon starting at the bifurcation. Three stones were removed. No stones remained. One 10 mm by 6 cm uncovered me maine stent was placed into the common bile duct. Bile flowed through the amanda nt. The stent was in good position. Estimated Blood Loss: Estimated blood loss was minimal. Post Op Diagnosis: - Choledocholithiasis was found. Complete removal was accomplished by balloon extraction. - One stent was removed from the biliary tree. - The biliary tree was swept. - One uncovered metal stent was placed into the common bile duct. Recommendation: - Discharge patient to home (with escort). - Clear liquid diet. - Continue present medications. - Follow up with oncology. - Thank you for allowing me to participate in the care of your patient. Attending Participation: I personally performed the entire procedure. Mushtaq Faria MD Mushtaq Faria MD 04/04/2018 1:38:48 PM This report has been signed electronicallyMushtaq Faria MD Number of Addenda: 0 Note Initiated On: 04/04/2018 12:08 PM [email or web address]
[2018-04-04] MEDS ORDERED: ONDANSETRON 4 MG/2 ML VIAL ONE (14:41)
[2018-04-04 16:06] VITALS: BP 119/62
== END 2018-04-04 16:05 | disposition home or self-care (01) ==
LOC: FSGY 08:53 → EDSTATUS 18:00
PROVIDERS: ATTEND Internal Medicine Gastroenterology
DX: K80.51 Calculus of bile duct without cholangitis or cholecystitis with obstruction (principal); T85.520A Displacement of bile duct prosthesis, initial encounter; N18.3 Chronic kidney disease, stage 3 (moderate); E11.22 Type 2 diabetes mellitus with diabetic chronic kidney disease; I12.9 Hypertensive chronic kidney disease with stage 1 through stage 4 chronic kidney disease, or unspecified chronic kidney disease; E78.00 Pure hypercholesterolemia, unspecified; Z85.07 Personal history of malignant neoplasm of pancreas; Z87.2 Personal history of diseases of the skin and subcutaneous tissue
CPT/HCPCS: C1876; J1642; J2001; J2405; J2704; J3010; P9047; Q9961